=== PATIENT | female | born 1970 ===

== ENCOUNTER 2020-06-11 13:05 | Emergency (ER) | payer OTHER, SELFPAY ==
[2020-06-11 13:08] VITALS: BP 126/78; PULSE 69; O2SAT 98; BMI 33.0
--- NOTE | 2020-06-11 13:26 | PC.NURSE ---
ambulatory with steady gait to ed bed 20, pt states pain surrounds upper trunk area, report given to jony Leung
--- NOTE | 2020-06-11 13:28 | XR_ITS ---
EXAMINATION: XR LUMBOSACRAL SPINE CLINICAL INFORMATION: Low back pain radiating down left leg. COMPARISON: Radiographs thoracic spine 06/11/2020, CT abdomen and pelvis 07/14/2019 TECHNIQUE: The lumbar spine is imaged in 4 views: APx2, lateral, and lateral view coned to lumbosacral junction. Order not available on 06/11/2020 due to EMR downtime. FINDINGS: There is transitional vertebral body L5 with bilateral sacralization. There are 4 nonrib-bearing lumbar vertebrae of normal height and normal lumbar lordosis. There is no lumbar vertebral compression, spondylolisthesis, disc narrowing, or destructive process. There are mild facet degeneration L4-L5, slightly greater on the right. The SI joints and remainder of sacrum are unremarkable. XR/XR lumbar spine 2-3V IMPRESSION: 1. 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 2. Facet degeneration L4-L5, slightly greater on right. 3. No lumbar vertebral compression, spondylolisthesis, disc narrowing, or destructive process.
--- NOTE | 2020-06-11 13:40 | XR_ITS ---
EXAMINATION: XR THORACOLUMBAR SPINE CLINICAL INFORMATION: Pain COMPARISON: Chest radiographs 04/03/2019 TECHNIQUE: Thoracic spine is imaged in AP and lateral views. Order not available on 06/11/2020 due to EMR downtime. FINDINGS: There is normal thoracic vertebral segmentation with 12 rib-bearing thoracic vertebrae of normal height and normal thoracic kyphosis. There are multilevel degenerative disc changes with disc narrowing and mild endplate sclerosis and thoracic vertebral body spurring. There is no thoracic vertebral compression, spondylolisthesis, destructive process, or erosive changes. No visible paraspinal soft tissue swelling. XR/XR thoracic spine 2V IMPRESSION: Multilevel degenerative disc changes.
--- NOTE | 2020-06-11 13:53 | ED.BACK ---
HPI - Back Pain/Injury General Chief Complaint: Back Pain/Injury Stated Complaint: chest pain Time Seen by Provider: 06/11/20 13:28 Source: patient Mode of arrival: ambulatory Limitations: no limitations History of Present Illness HPI Narrative: 49 y/o female with history of Graves' disease presenting with middle and lower back pain & spasm that started when she got up from a seated position earlier today. She states this has been going on intermittently for the last 2 weeks. She was seen by her Sound Editor as well as her PCP. She had her electrolytes they were normal. Her TSH was 1.28. Her tangible personal property appraiser recommended her to decrease her methimazole dose which she has done. She reports with certain movements her back goes into spasm. No SOB, chest pain, palpitation, trauma. Related Data Previous Rx's Medication Instructions Recorded cyclobenzaprine 10 mg PO TID PRN #15 tab 06/11/20 lidocaine [Lidoderm] 1 patch TOPICAL DAILY #15 ea 06/11/20 Allergies Allergy/AdvReac Type Severity Reaction Status Date / Time azithromycin [From ZITHROMAX] Allergy Severe NAUSEA & Unverified 03/18/20 19:13 VOMITING bee pollen [BEE STINGS] Allergy Severe ANAPHYLAXIS Unverified 03/18/20 19:13 copper [COPPER] Allergy Severe BODY Unverified 03/18/20 19:13 SWELLING tuberculin, purified protein Allergy Severe ANAPHYLAXIS Unverified 03/18/20 19:13 deriva [TB TEST] zolpidem [From AMBIEN] Allergy Severe SYNCOPE Unverified 03/18/20 19:13 nickel [NICKEL] Allergy Mild RASH Unverified 03/18/20 19:13 propranolol [PROPRANOLOL] Allergy Unknown ABD ISSUES Unverified 03/18/20 19:13 ranitidine [From ZANTAC] Allergy Unknown SEVERE Unverified 03/18/20 19:13 JOINT PAIN Review of Systems Review of Systems: Constitutional: No Fever, No Chills ENT/Mouth: No sore throat, No Rhinorrhea, No Swallowing Difficulty Eyes: No Eye Pain, No Swelling, No Redness Cardiovascular: No Chest Pain, No SOB Respiratory: No Cough, No Sputum Gastrointestinal: No Nausea, No Vomiting, No Diarrhea, No abdominal Pain Genitourinary: No Dysuria, No Urinary Frequency, No Hematuria Musculoskeletal: No joint pain, + Myalgias Skin: No Skin Lesions, No rash Neuro: No Weakness, No Numbness, No Dizziness, + Headache Psych: + Anxiety/Panic, No Depression Heme/Lymph: No Bruising, No Lymphadenopathy Endocrine: No Polyuria, No Polydipsia PMFSH Past Medical History Attestation statement: The following information was validated with the patient. Medical History Diabetes 1.5, managed as type 2 High cholesterol HTN (hypertension) Social History Social History Advance Directives: No Advance Directives Information Provided: No Physical Exam Vital Signs: Vital Signs: Last Vital Signs Pulse 69 06/11/20 13:08 BP 126/78 06/11/20 13:08 Pulse Ox 98 06/11/20 13:08 Body Mass Index 33.0 Appearance: Alert. Oriented X3. No acute distress. Neck: Normal inspection. CVS: Normal heart rate and rhythm. Pulses normal. Respiratory: No respiratory distress. Breath sounds normal. Back: paraspinal muscle tenderness with spasm of lattisimus dorsi in lower thoracic area, full ROM, no spinal tenderness. Skin: Skin warm and dry. Normal skin color. Normal skin turgor. No rashes. Extremities: No lower extremity edema. Neuro: Oriented X 3. No motor deficit. No sensory deficit. Course Course Course Narrative: 49 y/o female presenting with back spasms, improvement with topical lidoderm patches. No trauma. She is reporting wanting to find a new Sound Editor, that she is not happy with hers at this time. She had recent blood work showing TSH of 1.28 but her doctor is not communicating with her appropriately and listening to her concerns. She is requesting a referral to Endo at [facility]. She is not having signs or symptoms of thyroid storm and she is compliant with her medications. Will give Flexeril for muscle spasm and have her follow up with her PCP and new Endo here. Stable for discharge. MDM - Back Pain/Injury Differential Diagnosis Differential diagnosis: Likely lumbar radiculopathy, sciatica, strain of lumbar region and thoracic back pain Critical Care Time Critical Care Time Critical Care Time: No Discharge Plan Discharge Clinical Impression: Back pain, thoracic Qualifiers: Chronicity: acute Back pain laterality: bilateral Qualified Code(s): M54.6 - Pain in thoracic spine Patient Disposition: Home, Self-Care Instructions: Muscle Spasm (ED), Back Pain (ED) Additional Instructions: X-rays of your back were taken today - if there are any concerning findings we will call you. Use ice and/or heat to the area several times per day as needed for pain. Take prescribed muscle relaxer as needed for muscle spasm. Take Motrin and/or Tylenol as needed for pain. Stay hydrated, drink plenty of water. Follow up with Endocrinology for further management of Graves disease and medication recommendations. If you have any worsening pain or new or concerning symptoms come back to the ER for further evaluation. Prescriptions: New cyclobenzaprine 10 mg tablet 10 mg PO TID PRN (Reason: muscle spasm) Qty: 15 RF: 0 lidocaine [Lidoderm] 5 % adhesive patch,medicated 1 patch topical DAILY Qty: 15 RF: 0 Referrals: Nesha Zambrano MD [Physician] - 2 days (Graves disease) Stand Alone Forms: Work/School Release Discharge Date/Time: 06/11/20 14:37
== END 2020-06-11 14:37 | disposition home or self-care (01) ==
PROVIDERS: Emergency Provider Emergency Medicine; PCP Internal Medicine
DX: M54.6 Pain in thoracic spine (principal); M54.5 Low back pain; Z79.899 Other long term (current) drug therapy
CPT/HCPCS: 72070; 72100; 99283; 99284

== ENCOUNTER → 2020-07-05 07:49 | Outpatient (BNVA) | payer OTHER, SELFPAY | PROVIDERS: PCP Internal Medicine; Visit Provider Internal Medicine | DX: Z76.89 Persons encountering health services in other specified circumstances (principal) ==

== ENCOUNTER 2020-07-05 09:48 | Outpatient (REF) | payer OTHER, SELFPAY ==
[2020-07-05 11:15] LABS: Free T4 (Free Thyroxine) 0.91 ng/dL (0.71-1.85); Thyroid Stimulating Hormone 0.33 uIU/mL (0.32-4.0)
[2020-07-06 12:12] LABS: DHEA Sulfate 79 mcg/dL (19-231); Thyroglobulin Antibodies <1 IU/mL (< or = 1); Thyroid Peroxidase Antibodies <1 IU/mL (<9)
[2020-07-06 16:52] LABS: Triiodothyronine T3 Total 113 ng/dL (76-181)
[2020-07-08 14:33] LABS: Thyroid Stimulating Immunoglob 270 % baseline (<140)
[2020-07-09 16:02] LABS: Testosterone, Free 4.1 pg/mL (0.1-6.4); Testosterone, Total 29 ng/dL (2-45)
[2020-07-10 23:13] LABS: Thyrotropin Receptor Antibody 22.85 IU/L (<=2.00)
== END 2020-07-05 09:49 | disposition home or self-care (01) ==
LOC: HO.10HDL 09:48
PROVIDERS: Visit Provider Internal Medicine
DX: L65.9 Nonscarring hair loss, unspecified (principal); E05.90 Thyrotoxicosis, unspecified without thyrotoxic crisis or storm; E55.9 Vitamin D deficiency, unspecified
CPT/HCPCS: 36415; 82306; 82627; 83520; 84402; 84403; 84439; 84443; 84445; 84480; 86376; 86800

== ENCOUNTER 2020-11-08 17:03 | Emergency (ER) | payer OTHER, SELFPAY ==
--- NOTE | ~2020-11-08 | CT_ITS ---
EXAMINATION: CT BRAIN AND CT CERVICAL SPINE WITHOUT CONTRAST. CLINICAL INFORMATION: Headache and neck pain. COMPARISON: None TECHNIQUE: 5 mm thin axial and reformatted 2 minutes in sagittal coronal images of brain were obtained. Subsequently axial 3 mm thin axial and reformatted 2 minutes in sagittal coronal images of cervical spine were obtained. DLP [id number] FINDINGS: BRAIN: There is no acute intra-axial, extra-axial bleed, masses, collection or midline shift. There is no acute infarct in evolution. The lateral ventricles are symmetrical in size and configuration without enlargement. The mclaughlin to white matter differentiation maintained normal. Bone windows reveal no calvarial abnormality. Bilateral paranasal sinuses and mastoid air cells are well-aerated. CERVICAL SPINE: There is mild straightening of cervical lordosis. The vertebral heights, alignment and disc heights are normal. No visible acute fracture, dislocation or or lytic lesions seen. The craniovertebral junction and the C1-C2 alignment is normal. There is moderate right C3-C4, C4-C5 and C5-C6 facet joint arthropathy. The airway is widely patent. The lung apices are clear. Thyroid lobes are symmetrical and normal. Bilateral submandibular and parotid glands are symmetric and normal. CT/CT cervical spine wo con IMPRESSION: No acute intracranial process seen. Mild straightening of cervical lordosis likely spasm. No acute fracture or dislocation. Moderate right C3-C4, C4-C5 and C5-C6 facet joint arthropathy and hypertrophy.
--- NOTE | ~2020-11-08 | CT_ITS ---
EXAMINATION: CT BRAIN AND CT CERVICAL SPINE WITHOUT CONTRAST. CLINICAL INFORMATION: Headache and neck pain. COMPARISON: None TECHNIQUE: 5 mm thin axial and reformatted 2 minutes in sagittal coronal images of brain were obtained. Subsequently axial 3 mm thin axial and reformatted 2 minutes in sagittal coronal images of cervical spine were obtained. DLP [id number] FINDINGS: BRAIN: There is no acute intra-axial, extra-axial bleed, masses, collection or midline shift. There is no acute infarct in evolution. The lateral ventricles are symmetrical in size and configuration without enlargement. The mclaughlin to white matter differentiation maintained normal. Bone windows reveal no calvarial abnormality. Bilateral paranasal sinuses and mastoid air cells are well-aerated. CERVICAL SPINE: There is mild straightening of cervical lordosis. The vertebral heights, alignment and disc heights are normal. No visible acute fracture, dislocation or or lytic lesions seen. The craniovertebral junction and the C1-C2 alignment is normal. There is moderate right C3-C4, C4-C5 and C5-C6 facet joint arthropathy. The airway is widely patent. The lung apices are clear. Thyroid lobes are symmetrical and normal. Bilateral submandibular and parotid glands are symmetric and normal. CT/CT head/brain wo con IMPRESSION: No acute intracranial process seen. Mild straightening of cervical lordosis likely spasm. No acute fracture or dislocation. Moderate right C3-C4, C4-C5 and C5-C6 facet joint arthropathy and hypertrophy.
[2020-11-08 17:17] VITALS: BP 154/80; PULSE 90; RESP 18; TEMP 36.3; O2SAT 100; BMI 43.9
[2020-11-08] MEDS: Cyclobenzaprine HCl 5 MG TABLET PO (18:45)
[2020-11-08] MEDS: Ketorolac Tromethamine 30 MG/ML VIAL IM (18:45)
[2020-11-08] MEDS: Lidocaine 4 % Patch ADH..PATCH 1 PATCH TRANSDERMA (18:47)
[2020-11-08 20:00] VITALS: BP 152/77; PULSE 66; RESP 16; TEMP 36.2; O2SAT 97
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
--- NOTE | 2020-11-08 21:37 | PC.NURSE ---
CT REPORT BACK. PATIENT UPDATED AND PROVIDER NOTIFIED.
== END 2020-11-08 21:50 | disposition home or self-care (01) ==
PROVIDERS: Emergency Provider Internal Medicine; PCP Internal Medicine
DX: Z04.1 Encounter for examination and observation following transport accident (principal); R51.9 Headache, unspecified; M62.838 Other muscle spasm; G89.11 Acute pain due to trauma; M54.2 Cervicalgia; M47.812 Spondylosis without myelopathy or radiculopathy, cervical region; E78.5 Hyperlipidemia, unspecified; I10 Essential (primary) hypertension
CPT/HCPCS: 70450; 72125; 96372; 99284; J1885

== ENCOUNTER 2020-12-17 15:17 | Emergency (ER) | payer OTHER, SELFPAY ==
--- NOTE | ~2020-12-17 | US_ITS ---
EXAMINATION: US VENOUS ULTRASOUND WITH DOPPLER LOWER EXTREMITY, RIGHT CLINICAL INFORMATION: Pain. COMPARISON: Venous ultrasound exam 02/15/2019 right lower extremity TECHNIQUE: Ultrasound of the deep veins is performed from the hip to the calf with compression sonography and color and pulse Doppler assessment. Spectral analysis with color-flow imaging is performed. FINDINGS: There is normal vascular flow and compressibility of the veins from the groin to the popliteal vein. Within the calf there is thrombus causing occlusion of the posterior tibial veins. The peroneal veins are not seen. US/US venous duplex LE RT IMPRESSION: 1. Deep vein thrombosis in the calf involving the posterior tibial vein 2. No thrombus present from the groin through the popliteal vein. This critical result was discussed with Dr. Young on 12/17/2020, 8:00 PM and it was ascertained that the content and urgency of the report was understood at the time of direct communication.
[2020-12-17 16:31] VITALS: BP 150/80; PULSE 94; RESP 18; TEMP 36.9; O2SAT 99; BMI 43.4
--- NOTE | 2020-12-17 19:30 | ED_ITS ---
HPI - Extremity Problem General Chief complaint: General Medical Stated complaint: ?dvt Time Seen by Provider: 12/17/20 19:05 Source: patient Mode of arrival: ambulatory Limitations: no limitations History of Present Illness HPI Narrative: Patient traveled to [place] but a week ago since then complaining of pain the right calf area specially when she palpate with slight swelling no shortness No history of DVT in the past patient also complaining of pain in the left flank area no urinary complaints patient does have history of kidney stones no abdominal pain no nausea no vomiting Related Data Home Medications Medication Instructions Recorded Confirmed diazepam 2 mg tablet 2 mg PO Q8H PRN 07/05/20 07/05/20 dicyclomine 10 mg capsule 10 mg PO QID 07/05/20 07/05/20 Previous Rx's Medication Instructions Recorded cyclobenzaprine 10 mg PO TID PRN #15 tab 06/11/20 lidocaine [Lidoderm] 1 patch TOPICAL DAILY #15 ea 06/11/20 methimazole 5 mg tablet 7.5 mg PO DAILY 30 Days #45 tab 07/07/20 acetaminophen [Tylenol Extra 500 mg PO Q6H PRN #20 tab 11/08/20 Strength] cyclobenzaprine 5 mg PO Q8H PRN 5 Days #14 tab 11/08/20 lidocaine [Lidoderm] 1 patch TOPICAL DAILY PRN #30 ea 11/08/20 MDD remove after 12 hours naproxen 500 mg PO BID PRN 10 Days #20 tab 11/08/20 apixaban [Eliquis DVT-PE Treat 30D 5 mg PO PER PKG DIR #74 ea 12/17/20 Start] Allergies Allergy/AdvReac Type Severity Reaction Status Date / Time azithromycin [From ZITHROMAX] Allergy Severe NAUSEA & Verified 12/17/20 20:44 VOMITING bee pollen [BEE STINGS] Allergy Severe ANAPHYLAXIS Verified 12/17/20 20:44 copper [COPPER] Allergy Severe BODY Verified 12/17/20 20:44 SWELLING tuberculin, purified protein Allergy Severe ANAPHYLAXIS Verified 12/17/20 20:44 deriva [TB TEST] zolpidem [From AMBIEN] Allergy Severe SYNCOPE Verified 12/17/20 20:44 nickel [NICKEL] Allergy Mild RASH Verified 12/17/20 20:44 propranolol [PROPRANOLOL] Allergy Unknown ABD ISSUES Verified 12/17/20 20:44 ranitidine [From ZANTAC] Allergy Unknown SEVERE Verified 12/17/20 20:44 JOINT PAIN Review of Systems Review of Systems: Yes all other systems are reviewed and are negative [facility] Past Medical History Medical History Alopecia Graves disease High cholesterol HTN (hypertension) Hyperthyroidism Vitamin D deficiency Surgical History History of tubal ligation Family History Family History Maternal Grandmother Hypothyroidism Social History Social History Alcohol intake: current Alcohol intake frequency: a few times a month Patient Tobacco Use Status: Never used Tobacco Use of substances other than those prescribed or required for medical reasons: No Advance Directives: No Advance Directives Information Provided: Yes Patient : No Physical Exam Vital Signs: Vital Signs: Last Vital Signs Temp 97.6 F 12/17/20 19:55 Pulse 98 12/17/20 20:46 Resp 18 12/17/20 20:46 BP 135/84 12/17/20 20:46 Pulse Ox 98 12/17/20 20:46 Body Mass Index 43.4 Const: General: comfortable and no acute distress Resp: Auscultation: clear to auscultation bilaterally Cardio: Rate: regular rate Rhythm: regular rhythm Heart sounds: S1 normal heart sound present and S2 normal heart sound present Extrem: Ankle/foot/toe images: 1. Mild deep tenderness in calf area no significant swelling Cherelle test negative neurovascular intact MDM - Extremity (Nontraumatic) [facility] Narrative Medical decision making narrative: Patient right calf tenderness after a 5 hours trip ultrasound positive for tibial vein thrombosis no shortness of breath never had DVT in the past no other risk factor for DVT patient with stable kidney function will start on Eliquis 10 mg twice daily for 7 days then 5 mg twice daily advised to follow with PCP Lab Data Labs: Lab Results 12/17/20 Range/Units 19:55 Urine Color YELLOW Urine Appearance HAZY Urine pH 6.5 (5.0-8.0) Ur Specific [place] 1.020 (1.005-1.025) Urine Protein NEG (NEG-TRACE) MG/DL Urine Glucose (UA) NEG (NEG) MG/DL Urine Ketones NEG (NEG) MG/DL Urine Blood TRACE (NEG) Urine Nitrite NEG (NEG) Ur Leukocyte Esterase NEG (NEG) Urine RBC 1-4 (0) /HPF Urine WBC 0 (0-4) /HPF Ur Squamous Epith Cells 1+ /LPF Ur Renal Epithelial Cell TRACE /LPF Urine Bacteria NONE /LPF Imaging Data Venous US: Radiologist's impression: Patient: Selam AggarwalMR#: [id number]: 1970Acct:[id number]/Sex: 50 / FADM Date: 12/17/20Loc: HO.EDAttending Dr: Ordering Physician: Jasvir Young MD Date of Service: 12/17/20 Procedure(s): US venous duplex LE RT Accession Number(s): [id number] cc: Jasvir Young MD~ EXAMINATION: US VENOUS ULTRASOUND WITH DOPPLER LOWER EXTREMITY, RIGHT CLINICAL INFORMATION: Pain. COMPARISON: Venous ultrasound exam 02/15/2019 right lower extremity TECHNIQUE: Ultrasound of the deep veins is performed from the hip to the calf with compression sonography and color and pulse Doppler assessment. Spectral analysis with color-flow imaging is performed. FINDINGS: There is normal vascular flow and compressibility of the veins from the groin to the popliteal vein. Within the calf there is thrombus causing occlusion of the posterior tibial veins. The peroneal veins are not seen. US/US venous duplex LE RT IMPRESSION: 1. Deep vein thrombosis in the calf involving the posterior tibial vein 2. No thrombus present from the groin through the popliteal vein. This critical result was discussed with Dr. Young on 12/17/2020, 8:00 PM and it was ascertained that the content and urgency of the report was understood at the time of direct communication. Discharge Plan Discharge Clinical Impression: DVT of leg (deep venous thrombosis) Patient Disposition: Home, Self-Care Instructions: Deep Vein Thrombosis (ED) Additional Instructions: Rest at home Take medication as prescribed. Follow with PCP Prescriptions: New Eliquis DVT-PE Treat 30D Start 5 mg (74 tabs) tablets,dose pack 5 mg PO PER PKG DIR Qty: 74 RF: 0 No Action methimazole 5 mg tablet 7.5 mg PO DAILY 30 Days Qty: 45 RF: 2 cyclobenzaprine 10 mg tablet 10 mg PO TID PRN (Reason: muscle spasm) Qty: 15 RF: 0 lidocaine [Lidoderm] 5 % adhesive patch,medicated 1 patch topical DAILY Qty: 15 RF: 0 acetaminophen [Tylenol Extra Strength] 500 mg tablet 500 mg PO Q6H PRN (Reason: pain or fever) Qty: 20 RF: 0 lidocaine [Lidoderm] 5 % adhesive patch,medicated 1 patch topical DAILY MDD remove after 12 hours PRN (Reason: pain) Qty: 30 RF: 0 naproxen 500 mg tablet 500 mg PO BID PRN (Reason: pain) 10 Days Qty: 20 RF: 0 cyclobenzaprine 5 mg tablet 5 mg PO Q8H PRN (Reason: pain (scale score 7-10)) 5 Days Qty: 14 RF: 0 dicyclomine 10 mg capsule 10 mg PO QID RF: 0 diazepam 2 mg tablet 2 mg PO Q8H PRN (Reason: muscle spasm) RF: 0 Interventions: ED Discharge Assessment Last Done: 12/17/20 21:20 Discharge Date/Time: 12/17/20 21:21
[2020-12-17 19:55] VITALS: BP 136/78; PULSE 98; RESP 18; TEMP 36.4; O2SAT 98
[2020-12-17 20:17] LABS: Glucose Urine UA NEG (NEG); Leukocyte Esterase Urine NEG (NEG); Nitrite Urine NEG (NEG); PH 6.5 (5.0-8.0); Urine Blood TRACE (NEG); Urine Ketones NEG (NEG); Urine Protein NEG (NEG-TRACE)
[2020-12-17 20:18] LABS: Appearance Urine HAZY; Color Urine YELLOW
[2020-12-17 20:24] LABS: Renal Epithelial Cells Urine TRACE /LPF; Squamous Epithelial Cell Urine 1+ /LPF; WBC Urine 0 /HPF (0-4)
[2020-12-17 20:46] VITALS: BP 135/84; PULSE 98; RESP 18; O2SAT 98
[2020-12-17] MEDS: Apixaban 5 MG TABLET 10 MG PO (20:48)
== END 2020-12-17 21:21 | disposition home or self-care (01) ==
PROVIDERS: Emergency Provider Internal Medicine; PCP Internal Medicine
DX: I82.442 Acute embolism and thrombosis of left tibial vein (principal); I10 Essential (primary) hypertension; Z79.899 Other long term (current) drug therapy
CPT/HCPCS: 81001; 93971; 99284

== ENCOUNTER 2021-01-09 09:52 | Emergency (ER) | payer OTHER, SELFPAY ==
--- NOTE | ~2021-01-09 | US_ITS ---
EXAMINATION: US VENOUS ULTRASOUND WITH DOPPLER LOWER EXTREMITY, RIGHT CLINICAL INFORMATION: History of DVT below the knee, worsening pain in the leg COMPARISON: Right lower extremity duplex ultrasound ON 12/17/2020 TECHNIQUE: Ultrasound of the deep veins is performed from the hip to the calf with compression sonography and color and pulse Doppler assessment. Spectral analysis with color-flow imaging is performed. FINDINGS: There is normal venous compression and respiratory variation and augmented flow. The visualized common femoral vein, superficial femoral vein, profunda femoral vein, popliteal vein, and the trifurcation region shows no evidence of deep venous thrombosis. There is no significant popliteal fossa cyst. If the patient's symptoms persist, followup ultrasound in 5 days 7 days might be of value to exclude proximal propagation from a non-visualized calf vein. US/US venous duplex LE RT IMPRESSION: No DVT demonstrated in the right lower extremity. Previously identified thrombus in the right posterior tibial vein has resolved.
[2021-01-09 09:54] VITALS: BP 156/82; PULSE 76; RESP 18; TEMP 36.7; O2SAT 95; BMI 43.0
--- NOTE | 2021-01-09 11:28 | ED_ITS ---
HPI - General Adult General Chief complaint: Extremity Problem Stated complaint: DVT R LEG PAIN Time Seen by Provider: 01/09/21 11:24 Source: patient Limitations: no limitations History of Present Illness HPI narrative: Patient presents with worsening right leg pain. Patient was recently diagnosed with a DVT and started on Eliquis back in December 17 2020. Patient denies any recent trauma or injuries feels the pain is still in the calf and going up into her quadriceps anterior and posteriorly. Pain increases with range of motion or palpation. No recent trauma. Symptoms are [id number]. Patient denies shortness of breath chest pain fever chills. Related Data Home Medications Medication Instructions Recorded Confirmed diazepam 2 mg tablet 2 mg PO Q8H PRN 07/05/20 07/05/20 dicyclomine 10 mg capsule 10 mg PO QID 07/05/20 07/05/20 Previous Rx's Medication Instructions Recorded cyclobenzaprine 10 mg PO TID PRN #15 tab 06/11/20 lidocaine [Lidoderm] 1 patch TOPICAL DAILY #15 ea 06/11/20 methimazole 5 mg tablet 7.5 mg PO DAILY 30 Days #45 tab 07/07/20 acetaminophen [Tylenol Extra 500 mg PO Q6H PRN #20 tab 11/08/20 Strength] cyclobenzaprine 5 mg PO Q8H PRN 5 Days #14 tab 11/08/20 lidocaine [Lidoderm] 1 patch TOPICAL DAILY PRN #30 ea 11/08/20 MDD remove after 12 hours naproxen 500 mg PO BID PRN 10 Days #20 tab 11/08/20 apixaban [Eliquis DVT-PE Treat 30D 5 mg PO PER PKG DIR #74 ea 12/17/20 Start] methocarbamol 750 mg PO TID PRN #20 tab 01/09/21 Allergies Allergy/AdvReac Type Severity Reaction Status Date / Time azithromycin [From ZITHROMAX] Allergy Severe NAUSEA & Verified 12/17/20 20:44 VOMITING bee pollen [BEE STINGS] Allergy Severe ANAPHYLAXIS Verified 12/17/20 20:44 copper [COPPER] Allergy Severe BODY Verified 12/17/20 20:44 SWELLING tuberculin, purified protein Allergy Severe ANAPHYLAXIS Verified 12/17/20 20:44 deriva [TB TEST] zolpidem [From AMBIEN] Allergy Severe SYNCOPE Verified 12/17/20 20:44 nickel [NICKEL] Allergy Mild RASH Verified 12/17/20 20:44 propranolol [PROPRANOLOL] Allergy Unknown ABD ISSUES Verified 12/17/20 20:44 ranitidine [From ZANTAC] Allergy Unknown SEVERE Verified 12/17/20 20:44 JOINT PAIN Review of Systems Constitutional: Constitutional: Denies chills, Denies fever(s) and Denies headache(s) ENT: Denies headache(s) Cardiovascular: Cardiovascular: Denies chest pain and Denies dyspnea Comments: No pain with deep inspiration Respiratory: Respiratory: Denies dyspnea Gastrointestinal: Gastrointestinal: Denies nausea and Denies vomiting Musculoskeletal: Musculoskeletal: Denies numbness Comments: Right leg pain Neurologic: Denies headache(s) and Denies numbness Hematologic/Lymphatic: Hematologic/Lymphatic: Reports no additional hematologic/lymphatic complaints Allergic/Immunologic: Allergic/Immunologic: Reports as per [facility] Past Medical History Attestation statement: The following information was validated with the patient. Source: unable to obtain Medical History Alopecia Graves disease High cholesterol HTN (hypertension) Hyperthyroidism Vitamin D deficiency Surgical History History of tubal ligation Family History Family History Maternal Grandmother Hypothyroidism Social History Social History Alcohol intake: current Alcohol intake frequency: a few times a month Patient Tobacco Use Status: Never used Tobacco Advance Directives: Yes Advance Directives Information Provided: Yes Advance Directives on File: No Physical Exam Vital Signs: Vital Signs: Last Vital Signs Temp 98.0 F 01/09/21 09:54 Pulse 76 01/09/21 09:54 Resp 18 01/09/21 09:54 BP 156/82 H 01/09/21 09:54 Pulse Ox 95 01/09/21 09:54 Body Mass Index 43.0 vital signs have been reviewed as normal and appeared to be correct. Blood pressure normal. Heart rate normal. Respiration rate normal. Temperature normal. Oxygen saturation normal. Appearance: Alert. Oriented X3. No acute distress. Head: Normal external exam. Normocephalic. Atraumatic. Eyes: PERRLA. EOMI. ENT: Pharynx normal. Uvula midline. Moist mucous membranes. Neck: Soft full range of motion, no JVD CVS: Heart regular rate and rhythm no murmurs and rubs Respiratory: Breath sounds are clear to auscultation bilaterally. No accessory muscle use noted. Back: No CVA tenderness. Full range of motion noted. Skin: Skin warm and dry. Normal skin color. Normal skin turgor. No rashes/lesions/lacerations noted. Extremities: Right lowest extremity positive calf tenderness extending up to the quadriceps no masses palpated Neuro: Oriented X 3. No motor deficit. No sensory deficit. Reflexes normal. Course Course Course Narrative: Worsening DVT Subtherapeutic on Eliquis Muscle skeletal strain Pulmonary embolism less likely patient is on Eliquis no shortness of breath chest pain Case discussed with Dr. Sawant will repeat ultrasound of the right lower extremity at this time Ultrasound reviewed with patient prior DVT has resolved. Symptoms likely secondary to muscle skeletal pain Medical Decision Making Imaging Data Venous US: Radiologist's impression: [address] [id number] ReportSigned Patient: Selam AggarwalMR#: [id number]: 1970Acct:[id number]/Sex: 50 / FADM Date: 01/09/21Loc: [email or web address].EDAttending Dr: Ordering Physician: Ravi Gusman Date of Service: 01/09/21 Procedure(s): US venous duplex LE RT Accession Number(s): [id number] cc: Ravi Gusman ~ EXAMINATION: US VENOUS ULTRASOUND WITH DOPPLER LOWER EXTREMITY, RIGHT CLINICAL INFORMATION: History of DVT below the knee, worsening pain in the leg COMPARISON: Right lower extremity duplex ultrasound ON 12/17/2020 TECHNIQUE: Ultrasound of the deep veins is performed from the hip to the calf with compression sonography and color and pulse Doppler assessment. Spectral analysis with color-flow imaging is performed. FINDINGS: There is normal venous compression and respiratory variation and augmented flow. The visualized common femoral vein, superficial femoral vein, profunda femoral vein, popliteal vein, and the trifurcation region shows no evidence of deep venous thrombosis. There is no significant popliteal fossa cyst. If the patient's symptoms persist, followup ultrasound in 5 days 7 days might be of value to exclude proximal propagation from a non-visualized calf vein. US/US venous duplex LE RT IMPRESSION: No DVT demonstrated in the right lower extremity. Previously identified thrombus in the right posterior tibial vein has resolved. Dictated By:SERGIO CALERO MDSigned By:<Electronically signed by SERGIO CALERO MD in OV>01/09/21 1231 DD/ 1133TD/TT: Screen Vent Binder: PN Discharge Plan Discharge Clinical Impression: Leg pain, Muscle strain Patient Disposition: Home, Self-Care Instructions: Muscle Strain (ED) Additional Instructions: Your ultrasound showed resolution of the deep vein thrombosis in the right leg continue to take the Eliquis as directed follow-up with your doctors as scheduled Pain likely secondary to muscle skeletal pain will start muscle relaxer at this time Prescriptions: New methocarbamol 750 mg tablet 750 mg PO TID PRN (Reason: muscle spasm) Qty: 20 RF: 0 No Action methimazole 5 mg tablet 7.5 mg PO DAILY 30 Days Qty: 45 RF: 2 cyclobenzaprine 10 mg tablet 10 mg PO TID PRN (Reason: muscle spasm) Qty: 15 RF: 0 lidocaine [Lidoderm] 5 % adhesive patch,medicated 1 patch topical DAILY Qty: 15 RF: 0 Eliquis DVT-PE Treat 30D Start 5 mg (74 tabs) tablets,dose pack 5 mg PO PER PKG DIR Qty: 74 RF: 0 acetaminophen [Tylenol Extra Strength] 500 mg tablet 500 mg PO Q6H PRN (Reason: pain or fever) Qty: 20 RF: 0 lidocaine [Lidoderm] 5 % adhesive patch,medicated 1 patch topical DAILY MDD remove after 12 hours PRN (Reason: pain) Qty: 30 RF: 0 naproxen 500 mg tablet 500 mg PO BID PRN (Reason: pain) 10 Days Qty: 20 RF: 0 cyclobenzaprine 5 mg tablet 5 mg PO Q8H PRN (Reason: pain (scale score 7-10)) 5 Days Qty: 14 RF: 0 dicyclomine 10 mg capsule 10 mg PO QID RF: 0 diazepam 2 mg tablet 2 mg PO Q8H PRN (Reason: muscle spasm) RF: 0
== END 2021-01-09 12:48 | disposition home or self-care (01) ==
PROVIDERS: Emergency Provider Emergency Medicine; PCP Internal Medicine
DX: T14.8XXA Other injury of unspecified body region, initial encounter (principal); I10 Essential (primary) hypertension; Z86.718 Personal history of other venous thrombosis and embolism; Z79.01 Long term (current) use of anticoagulants; Z79.899 Other long term (current) drug therapy; X58.XXXA Exposure to other specified factors, initial encounter; Y93.9 Activity, unspecified; Y92.9 Unspecified place or not applicable; Y99.9 Unspecified external cause status
CPT/HCPCS: 93971; 99283; 99284

== ENCOUNTER 2021-03-06 17:21 | Emergency (ER) | payer OTHER, SELFPAY ==
--- NOTE | ~2021-03-06 | XR_ITS ---
Examination: XR hand wrist RT Indication: pt c atraumatic right wrist/hand pain Comparison: 04/03/2019 Technique: 4 plain film views of the right hand and wrist Findings: Bones are in normal anatomic alignment. There is no acute fracture or dislocation seen. No bony degenerative or destructive changes. No periosteal reaction or erosive changes. No radiopaque foreign body or soft tissue gas. Incidental mild ulnar negative variance of the wrist. XR/XR hand wrist RT Impression: No acute bony abnormality.
[2021-03-06 17:39] VITALS: BP 150/79; PULSE 86; RESP 16; TEMP 36.5; O2SAT 99; BMI 44.0
[2021-03-06] MEDS: Acetaminophen 325 MG TABLET 975 MG PO (18:05)
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
== END 2021-03-06 19:00 | disposition home or self-care (01) ==
PROVIDERS: Emergency Provider Internal Medicine; PCP Internal Medicine
DX: S63.501A Unspecified sprain of right wrist, initial encounter (principal); M25.531 Pain in right wrist; X58.XXXA Exposure to other specified factors, initial encounter; Y93.9 Activity, unspecified; Y92.9 Unspecified place or not applicable; Y99.9 Unspecified external cause status; Z79.899 Other long term (current) drug therapy
CPT/HCPCS: 73110; 73130; 99284

== ENCOUNTER 2021-10-10 01:55 | Emergency (ER) | payer OTHER, SELFPAY ==
[2021-10-10 02:12] VITALS: BP 182/50; PULSE 70; RESP 18; TEMP 36; O2SAT 98
[2021-10-10] MEDS: Tetracaine HCl/PF 0.5% Oph Sol 4 ML DROPS 1 DROP EYE-BOTH (03:14)
[2021-10-10] MEDS: Fluorescein Sodium STRIP 1 STRIP EYE-BOTH (03:15)
--- NOTE | 2021-10-10 03:41 | ED.EYEPROB ---
HPI - Eye Problem General Chief complaint: Eye Problems Stated complaint: FB in eye Time Seen by Provider: 10/10/21 02:55 Source: patient and family (Son) Mode of arrival: ambulatory Limitations: no limitations History of Present Illness HPI Narrative: 51-year-old female came in for evaluation of her right eye pain. Patient in the process of moving felt right eye pain with discharge, patient was seen in urgent care was prescribed gentamicin eyedrops with partial improvement but patient still feel foreign body in the eye and pain in the right eye with discharge and the eyelid stick in the morning. Related Data Home Medications Medication Instructions Recorded Confirmed diazepam 2 mg tablet 2 mg PO Q8H PRN 07/05/20 07/05/20 dicyclomine 10 mg capsule 10 mg PO QID 07/05/20 07/05/20 Previous Rx's Medication Instructions Recorded cyclobenzaprine 10 mg tablet 10 mg PO TID PRN #15 tab 06/11/20 lidocaine 5 % topical patch 1 patch TOPICAL DAILY #15 ea 06/11/20 (Lidoderm) methimazole 5 mg tablet 7.5 mg PO DAILY 30 Days #45 tab 07/07/20 acetaminophen 500 mg tablet 500 mg PO Q6H PRN #20 tab 11/08/20 (Tylenol Extra Strength) cyclobenzaprine 5 mg tablet 5 mg PO Q8H PRN 5 Days #14 tab 11/08/20 lidocaine 5 % topical patch 1 patch TOPICAL DAILY PRN #30 ea 11/08/20 (Lidoderm) MDD remove after 12 hours naproxen 500 mg tablet 500 mg PO BID PRN 10 Days #20 tab 11/08/20 apixaban 5 mg (74 tabs) tablets in 5 mg PO PER PKG DIR #74 ea 12/17/20 a dose pack ([employer] DVT-PE Treat 30D Start) methocarbamol 750 mg tablet 750 mg PO TID PRN #20 tab 01/09/21 acetaminophen 500 mg tablet 1,000 mg PO QID PRN #14 tab 03/06/21 (Tylenol Extra Strength) lidocaine HCl 4 % topical cream 1 appl TOPICAL BID PRN #120 g 03/06/21 (Aspercreme (lidocaine HCl)) oxycodone 5 mg tablet 5 mg PO Q6H PRN #14 tab 03/06/21 Allergies Allergy/AdvReac Type Severity Reaction Status Date / Time azithromycin [From ZITHROMAX] Allergy Severe NAUSEA & Verified 12/17/20 20:44 VOMITING bee pollen [BEE STINGS] Allergy Severe ANAPHYLAXIS Verified 12/17/20 20:44 copper [COPPER] Allergy Severe BODY Verified 12/17/20 20:44 SWELLING tuberculin, purified protein Allergy Severe ANAPHYLAXIS Verified 12/17/20 20:44 deriva [TB TEST] zolpidem [From AMBIEN] Allergy Severe SYNCOPE Verified 12/17/20 20:44 nickel [NICKEL] Allergy Mild RASH Verified 12/17/20 20:44 propranolol [PROPRANOLOL] Allergy Unknown ABD ISSUES Verified 12/17/20 20:44 ranitidine [From ZANTAC] Allergy Unknown SEVERE Verified 12/17/20 20:44 JOINT PAIN Review of Systems Review of Systems: All other systems are reviewed and are negative Constitutional: Reports as per HPI and Reports no additional constitutional complaints Eyes: Reports as per HPI and Reports no additional eye complaints Reports system reviewed and no additional complaints, except as documented Cardiovascular: Reports as per HPI and Reports no additional cardiovascular complaints Respiratory: Reports as per HPI and Reports no additional respiratory complaints Gastrointestinal: Reports as per HPI and Reports no additional gastrointestinal complaints Genitourinary: Reports no additional female genitourinary complaints Musculoskeletal: Reports no additional musculoskeletal complaints Skin/Breast: Reports system reviewed and no additional complaints, except as docu Psychiatric: Reports no additional psychiatric complaints Endocrine: Reports no additional endocrine complaints Hematologic/Lymphatic: Reports no additional hematologic/lymphatic complaints Allergic/Immunologic: Reports no additional allergic/immunologic complaints Reports system reviewed and no additional complaints, except as documented and Reports Abnormal speech present [facility] Past Medical History Medical History Alopecia Graves disease High cholesterol HTN (hypertension) Hyperthyroidism Vitamin D deficiency Surgical History History of tubal ligation Family History Family History Maternal Grandmother Hypothyroidism Social History Social History Alcohol intake: never Patient Tobacco Use Status: Never used Tobacco Use of substances other than those prescribed or required for medical reasons: No Advance Directives: No Advance Directives Information Provided: No Patient : No Physical Exam Vital Signs: Vital Signs: Last Vital Signs Temp 96.8 F 10/10/21 02:12 Pulse 70 10/10/21 02:12 Resp 18 10/10/21 02:12 BP 182/50 H 10/10/21 02:12 Pulse Ox 98 10/10/21 02:12 BMI result Body Mass Index 4.1 Vital signs have been reviewed as appeared to be correct. Blood pressure normal. Heart rate normal. Respiration rate normal. Temperature normal. Oxygen saturation normal. Appearance: Alert. Oriented X3. No acute distress. Head: Normal external exam. Normocephalic. Atraumatic. No Null signs noted. No raccoon eyes noted Eyes: PERRLA. EOMI. Conjunctiva and sclera normal. Eyelids normal. Visual acuity is 20/70 on the right eye, 20/40 in the left eye, no fluorescein uptake in the cornea, no foreign body is appreciated under neither of the eyelids, IOP is 17 in the right and 15 in the left. Small stye in the right temporal upper eyelid. ENT: TM's Normal. Pharynx normal. Uvula midline. Moist mucous membranes. No trismus noted. No drooling noted. No muffled voice noted. Neck: Normal inspection. Neck supple. FROM. No adenopathy. Thyroid Normal. No meningeal signs. No neck mass noted. CVS: Normal heart rate and rhythm. Heart sound normal. No murmurs noted. Pulses normal throughout. Respiratory: No respiratory distress. Painless inspiration. Breath sounds normal. No wheezes/rales/rhonchi noted. Chest nontender. No accessory muscle usage noted or decreased air movement noted. Abdomen: Soft and nontender. Bowel sounds normal in all 4 quadrants. No distention noted. No organomegaly noted. No visible injury noted. Back: No CVA tenderness. Full range of motion noted. Skin: Skin warm and dry. Normal skin color. Normal skin turgor. No rashes/lesions/lacerations noted. Extremities: No lower extremity edema. Extremities exhibit normal range of motion. Extremities nontender. Neuro: Oriented X 3. Cranial nerve exam: II-XII are grossly intact No motor deficit. No sensory deficit. Reflexes normal. Course Course Course Narrative: Assessment and plan. 51-year-old female with right eye pain, normal IUP, no corneal abrasion or ulceration, no foreign body is appreciated. Patient was instructed to continue with the gentamicin and follow-up with screen printing cloth spreader, continue with warm compression. Discharge Plan Discharge Clinical Impression: [place]on Patient Disposition: Home, Self-Care Instructions: [place]on (ED) Prescriptions: No Action methimazole 5 mg tablet 7.5 mg PO DAILY 30 Days Qty: 45 2RF cyclobenzaprine 10 mg tablet 10 mg PO TID PRN (Reason: muscle spasm) Qty: 15 0RF lidocaine [Lidoderm] 5 % adhesive patch,medicated 1 patch topical DAILY Qty: 15 0RF Rx Instructions: leave on most painful area for up to 12 hrs Eliquis DVT-PE Treat 30D Start 5 mg (74 tabs) tablets,dose pack 5 mg PO PER PKG DIR Qty: 74 0RF lidocaine HCl [Aspercreme (lidocaine HCl)] 4 % cream 1 appl topical BID PRN (Reason: pain) Qty: 120 0RF acetaminophen [Tylenol Extra Strength] 500 mg tablet 1,000 mg PO QID PRN (Reason: fever or pain) Qty: 14 0RF oxycodone 5 mg tablet 5 mg PO Q6H PRN (Reason: pain) Qty: 14 0RF Rx Instructions: Can be partially filled at patient request acetaminophen [Tylenol Extra Strength] 500 mg tablet 500 mg PO Q6H PRN (Reason: pain or fever) Qty: 20 0RF lidocaine [Lidoderm] 5 % adhesive patch,medicated 1 patch topical DAILY MDD remove after 12 hours PRN (Reason: pain) Qty: 30 0RF Rx Instructions: leave on most painful area for up to 12 hrs naproxen 500 mg tablet 500 mg PO BID PRN (Reason: pain) 10 Days Qty: 20 0RF cyclobenzaprine 5 mg tablet 5 mg PO Q8H PRN (Reason: pain (scale score 7-10)) 5 Days Qty: 14 0RF methocarbamol 750 mg tablet 750 mg PO TID PRN (Reason: muscle spasm) Qty: 20 0RF dicyclomine 10 mg capsule 10 mg PO QID 0RF diazepam 2 mg tablet 2 mg PO Q8H PRN (Reason: muscle spasm) 0RF Referrals: Long Hernandez [Physician] - Interventions: ED Discharge Assessment Last Done: 10/10/21 03:44
== END 2021-10-10 03:44 | disposition home or self-care (01) ==
PROVIDERS: Emergency Provider Emergency Medicine; PCP Internal Medicine
DX: H00.011 Hordeolum externum right upper eyelid (principal); H57.11 Ocular pain, right eye; I10 Essential (primary) hypertension; E78.5 Hyperlipidemia, unspecified; Z79.899 Other long term (current) drug therapy; Z79.01 Long term (current) use of anticoagulants
CPT/HCPCS: 99283; 99284

== ENCOUNTER 2021-12-27 11:04 | Emergency (ER) | payer OTHER, SELFPAY | END 2021-12-27 13:36 | disposition left against medical advice (07) | LOC: HO.ED 13:35 | PROVIDERS: Emergency Provider Emergency Medicine; PCP Internal Medicine | DX: S99.929A Unspecified injury of unspecified foot, initial encounter (principal); X58.XXXA Exposure to other specified factors, initial encounter; Y93.9 Activity, unspecified; Y92.9 Unspecified place or not applicable; Y99.9 Unspecified external cause status ==

== ENCOUNTER 2022-10-03 13:32 | Emergency (ER) | payer OTHER, SELFPAY ==
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
[2022-10-03 13:37] VITALS: BP 156/84; PULSE 66; RESP 18; TEMP 36.6; O2SAT 98; BMI 44.1
[2022-10-03 16:31] LABS: MANUAL DIFF FLAG NO
[2022-10-03 16:33] LABS: Basophils Percent Auto 0.2 % (0-2); Eosinophils Absolute Auto 0.1 X10*3/uL (0.0-0.4); Eosinophils Percent Auto 1.2 % (0-4); Hematocrit 31.4 % (37.0-47.0); Hemoglobin 10.4 g/dl (12.0-16.0); Imm Gran Abs Auto 0.03 X10*3/uL (0.00-0.03); Imm Gran Pct Auto 0.5 % (0.0-0.4); Lymphocytes Absolute Auto 2.7 X10*3/uL (1.2-4.9); Lymphocytes Percent Auto 44.4 % (20-40); Mean Corpuscular HGB Conc 33.1 g/dl (31.0-35.0); Mean Corpuscular Hemoglobin 31.4 pg (27.0-33.0); Mean Corpuscular Volume 94.9 fL (80.0-98.0); Mean Platelet Volume 10.3 fL (9.4-12.3); Monocytes Absolute Auto 0.4 X10*3/uL (0.1-1.2); Monocytes Percent Auto 5.8 % (2-11); Neutrophils Absolute Auto 2.9 x10*3/uL (2.0-8.3); Neutrophils Percent Auto 47.9 % (45-73); Platelet Count 332 X10*3/uL (160-400); Red Blood Count 3.31 X10*6/uL (4.20-5.50); Red Cell Distribution Width 15.2 % (11.0-16.0)
[2022-10-03 16:51] LABS: Alanine Aminotransferase 17 U/L (0-31); Albumin Level 4.1 g/dL (3.5-5.0); Alkaline Phosphatase 53 U/L (39-117); Anion Gap 13 (12-20); Aspartate Amino Transferase 20 U/L (5-31); Bilirubin Total 0.9 mg/dL (0.0-1.0); Blood Urea Nitrogen 13 mg/dL (9-16); Calcium 9.2 mg/dL (8.4-10.2); Carbon Dioxide 27 mmol/L (22-29); Chloride 106 mmol/L (96-108); Creatinine Clr Calc Pharmacy 87.9; Estimated Glomerular Filt Rate > 60; Glucose Random 108 mg/dL (60-115); Sodium 142 mmol/L (135-145); Total Protein 6.7 g/dL (6.5-8.0)
[2022-10-03 17:01] LABS: HCG Quantitative < 2 mIU/mL
[2022-10-03] MEDS: iohexoL 350 MG/ML 100 ML INFUS..BTL IV (17:26)
[2022-10-03] MEDS: Cyclobenzaprine HCl 10 MG TABLET PO (19:03)
[2022-10-03] MEDS: Acetaminophen 325 MG TABLET 650 MG PO (19:03)
[2022-10-03] MEDS: 0.9 % Sodium Chloride 1,000 ML 999 ML IV (19:04)
[2022-10-03 19:30] LABS: Lipase 25 U/L (8-78)
[2022-10-03 19:45] VITALS: BP 145/76; PULSE 60; RESP 16; TEMP 36.4; O2SAT 99
== END 2022-10-03 20:26 | disposition home or self-care (01) ==
PROVIDERS: Physician Assistant; Emergency Provider Emergency Medicine; PCP Internal Medicine
DX: Z04.1 Encounter for examination and observation following transport accident (principal); M79.18 Myalgia, other site; R51.9 Headache, unspecified; M54.2 Cervicalgia
CPT/HCPCS: 36415; 70450; 71260; 72125; 74177; 80053; 83690; 84702; 85025; 96360; 99284; Q9967

== ENCOUNTER 2022-12-18 08:25 | Emergency (ER) | payer OTHER, SELFPAY ==
[2022-12-18 08:27] VITALS: BP 163/86; PULSE 82; RESP 18; TEMP 36.2; O2SAT 98; BMI 45.3
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
[2022-12-18 10:40] VITALS: BP 155/86; PULSE 77; RESP 18; TEMP 36.6; O2SAT 100
[2022-12-18] MEDS: Ketorolac Tromethamine 30 MG/ML VIAL IVPUSH (10:55)
[2022-12-18] MEDS: Metoclopramide HCl 10 MG/2 ML VIAL IVPUSH (10:56)
[2022-12-18] MEDS: diphenhydrAMINE HCL 50 MG/ML VIAL IVPUSH (10:57)
--- NOTE | 2022-12-18 11:17 | PC.NURSE ---
report taken from vidhya rn, pt resting comfortably in stretcher. iv already in place and medicated. pt aware of plan of care and denied having any questions at this time.
== END 2022-12-18 12:43 | disposition home or self-care (01) ==
PROVIDERS: Emergency Provider Student in an Organized Health Care Education/Training Program; PCP Internal Medicine
DX: G43.909 Migraine, unspecified, not intractable, without status migrainosus (principal); Z79.899 Other long term (current) drug therapy
CPT/HCPCS: 96374; 96375; 99284; J1200; J1885; J2765

== ENCOUNTER 2023-07-12 20:55 | Emergency (ER) | payer OTHER, SELFPAY ==
[2023-07-12 21:24] VITALS: BP 144/93; PULSE 73; RESP 18; TEMP 37; O2SAT 98; BMI 45.2
[2023-07-12 22:46] VITALS: BP 156/92; PULSE 69; RESP 16; TEMP 36.6
[2023-07-12 23:41] LABS: Appearance Urine Clear; Color Urine Yellow; Glucose Urine UA Negative (Negative); Leukocyte Esterase Urine Negative (Negative); Nitrite Urine Negative (Negative); PH 5.5 (5.0-9.0); UMIC TRIGGER UACC YES; Urine Blood Small (1+) (Negative); Urine Ketones Negative (Negative); Urine Protein Negative (Neg-Trace)
[2023-07-13 00:05] LABS: Bacteria Urine None Seen (None Seen); Hyaline Casts Urine 0-2 /LPF (0-2); Squamous Epithelial Cell Urine 0-2 /HPF (0-2); WBC Urine 0-5 /HPF (0-5)
[2023-07-13 00:34] VITALS: BP 145/77; PULSE 60; RESP 17; TEMP 37.1; O2SAT 99
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
[2023-07-13 01:34] VITALS: BP 147/80; PULSE 65; RESP 18; TEMP 36.6; O2SAT 99
== END 2023-07-13 01:36 | disposition home or self-care (01) ==
PROVIDERS: Emergency Provider Student in an Organized Health Care Education/Training Program; PCP Internal Medicine
DX: M54.50 Low back pain, unspecified (principal); G89.29 Other chronic pain; R32 Unspecified urinary incontinence
CPT/HCPCS: 81001; 99282; 99283

== ENCOUNTER 2023-08-09 09:31 | Outpatient (AMB) | payer OTHER, SELFPAY ==
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
[2023-08-09 09:45] VITALS: BP 140/86; PULSE 62; RESP 18; O2SAT 98; BMI 45.7
== END 2023-08-09 10:22 | disposition home or self-care (01) ==
PROVIDERS: PCP Internal Medicine; Visit Provider Nurse Practitioner Family
DX: R07.89 Other chest pain (principal); G58.8 Other specified mononeuropathies; M54.50 Low back pain, unspecified; M25.512 Pain in left shoulder; M54.2 Cervicalgia
CPT/HCPCS: 99204

== ENCOUNTER → 2023-08-09 09:31 | Outpatient (BNVA) | payer OTHER, SELFPAY | PROVIDERS: PCP Internal Medicine; Visit Provider Nurse Practitioner Family ==

== ENCOUNTER 2023-08-24 08:02 | Outpatient (AMB) | payer OTHER, SELFPAY ==
[2023-08-24 08:11] VITALS: BP 169/84; PULSE 80; RESP 12; O2SAT 98; BMI 45.3
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
== END 2023-08-24 08:48 | disposition home or self-care (01) ==
PROVIDERS: PCP Internal Medicine; Visit Provider Internal Medicine
DX: G58.8 Other specified mononeuropathies (principal)
CPT/HCPCS: 64420; 76942

== ENCOUNTER → 2023-08-24 08:02 | Outpatient (BNVA) | payer OTHER, SELFPAY | PROVIDERS: PCP Internal Medicine; Visit Provider Internal Medicine | DX: G58.8 Other specified mononeuropathies (principal) | CPT/HCPCS: 64420; J2795 ==

== ENCOUNTER 2023-08-30 10:26 | Outpatient (AMB) | payer OTHER, SELFPAY ==
[2023-08-30 10:44] VITALS: BP 168/102; PULSE 80; O2SAT 98; BMI 45.3
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
== END 2023-08-30 11:06 | disposition home or self-care (01) ==
PROVIDERS: PCP Internal Medicine; Visit Provider Nurse Practitioner Family
DX: M54.50 Low back pain, unspecified (principal); M47.816 Spondylosis without myelopathy or radiculopathy, lumbar region; R07.89 Other chest pain; G58.8 Other specified mononeuropathies; M54.2 Cervicalgia
CPT/HCPCS: 99214

== ENCOUNTER → 2023-08-30 10:26 | Outpatient (BNVA) | payer OTHER, SELFPAY | PROVIDERS: PCP Internal Medicine; Visit Provider Nurse Practitioner Family ==

== ENCOUNTER 2023-11-08 14:51 | Outpatient (AMB) | payer OTHER, SELFPAY ==
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
[2023-11-08 15:04] VITALS: BP 151/74; PULSE 65; O2SAT 97; BMI 44.2
== END 2023-11-08 16:02 | disposition home or self-care (01) ==
PROVIDERS: PCP Internal Medicine; Visit Provider Nurse Practitioner Family
DX: M54.50 Low back pain, unspecified (principal); M47.816 Spondylosis without myelopathy or radiculopathy, lumbar region; M54.2 Cervicalgia; M25.512 Pain in left shoulder; G58.8 Other specified mononeuropathies
CPT/HCPCS: 99214

== ENCOUNTER → 2023-11-08 14:51 | Outpatient (BNVA) | payer OTHER, SELFPAY | PROVIDERS: PCP Internal Medicine; Visit Provider Nurse Practitioner Family ==

== ENCOUNTER 2024-02-28 11:58 | Outpatient (AMB) | payer OTHER, SELFPAY ==
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
[2024-02-28 12:02] VITALS: BP 155/79; PULSE 69; O2SAT 98; BMI 42.5
== END 2024-02-28 12:12 | disposition home or self-care (01) ==
PROVIDERS: PCP Internal Medicine; Visit Provider Nurse Practitioner Family
DX: M47.816 Spondylosis without myelopathy or radiculopathy, lumbar region (principal); M54.50 Low back pain, unspecified; M53.3 Sacrococcygeal disorders, not elsewhere classified; M54.16 Radiculopathy, lumbar region; E66.01 Morbid (severe) obesity due to excess calories; Z68.41 Body mass index [BMI] 40.0-44.9, adult
CPT/HCPCS: 99214

== ENCOUNTER → 2024-02-28 11:58 | Outpatient (BNVA) | payer OTHER, SELFPAY | PROVIDERS: PCP Internal Medicine; Visit Provider Nurse Practitioner Family ==

== ENCOUNTER 2024-04-03 07:56 | Outpatient (REF) | payer OTHER, SELFPAY | END 2024-04-03 07:57 | disposition home or self-care (01) | LOC: CF 07:56 | PROVIDERS: Visit Provider Internal Medicine | DX: M53.3 Sacrococcygeal disorders, not elsewhere classified (principal) | CPT/HCPCS: 27096; J2003; J2795 ==

== ENCOUNTER 2024-04-03 09:16 | Outpatient (AMB) | payer OTHER, SELFPAY ==
[2024-04-03 09:21] VITALS: BP 158/77; PULSE 70; RESP 15; O2SAT 100
--- NOTE | 2024-04-03 09:22 | MHC.OFFVIS ---
Vital Signs 04/03/24 09:21 04/03/24 09:45 BP 158/77 H 162/68 H Blood Pressure Location Rt brachial Rt brachial Position Sitting Sitting Respiration 15 16 Pulse 70 64 Pulse Source Pulse Oximeter Pulse Oximeter Pulse Oximetry (%) 100 100 Oxygen Delivery Method Room Air Room Air Comment Pre-op Post-op Intake Visit Reasons: Left Dx SIJ inj Allergies azithromycin [From ZITHROMAX] Allergy (Severe, Verified 02/28/24 12:02) NAUSEA & VOMITING bee pollen [BEE STINGS] Allergy (Severe, Verified 02/28/24 12:02) ANAPHYLAXIS copper [COPPER] Allergy (Severe, Verified 02/28/24 12:02) BODY SWELLING tuberculin, purified protein deriva [TB TEST] Allergy (Severe, Verified 02/28/24 12:02) ANAPHYLAXIS zolpidem [From AMBIEN] Allergy (Severe, Verified 02/28/24 12:02) SYNCOPE nickel [NICKEL] Allergy (Mild, Verified 02/28/24 12:02) RASH pantoprazole Allergy (Unknown, Verified 02/28/24 12:02) Unknown ranitidine [From ZANTAC] Allergy (Unknown, Verified 02/28/24 12:02) SEVERE JOINT PAIN amlodipine Allergy (Verified 02/28/24 12:02) Unknown erythromycin base Adverse Reaction (Severe, Verified 02/28/24 12:02) Rash HPI HPI Left Dx SIJ inj: Details: Patient presents for scheduled procedure. Denies any recent cough, cold, infection, fever or other significant changes in medical history since last office visit. FORMERLY [facility], [facility]–1983 Medical History Hearing loss, left Bilateral tinnitus Graves disease Alopecia Vitamin D deficiency Hyperthyroidism High cholesterol HTN (hypertension) Surgical History History of tubal ligation Family History Maternal Grandmother Hypothyroidism Social History Alcohol intake: never Patient Tobacco Use Status: Never used Tobacco Office Procedures Joint Injection/Aspiration Joint Injection/Aspiration Details: Diagnostic Sacroiliac Joint Injection, left The procedure, its benefits, and its risks were explained and written informed consent was obtained from the patient. Immediately prior to starting the procedure, a time-out safety check was conducted. The patient's identification, procedure name, procedure site, and procedure laterality were confirmed with the patient. ? Patient was placed prone on the fluoroscopy table and the lumbosacral area was prepped using ChloraPrep and draped with sterile drapein standard fashion. The C-arm was rotated in a contralateral oblique fashion until the medial border of the iliac crest no longer foreshadowed the posterior sacroiliac joint line. The skin and subcutaneous tissue was anesthetized using 1 mL of 0.75% plain lidocaine with 1.5-inch 25-gauge needle in the middle region of the joint line.? A 3.5-inch 22-gauge spinal needle with small bend on the tip was slowly advanced towards the joint line, coaxial to the x-ray beam. Once bony content was obtained, the needle was easily slid into the intra-articular space.? Intra-articular needle position was confirmed using lateral fluoroscopy.? A total volume of 2.5mL of solution 0.5% of ropivacaine was injected intra-articularly. The stylet was reinserted and needle was removed. The patient tolerated the procedure well. Patient denied any lower extremity weakness or numbness. Patient was observed for 30 min and was discharged after fulfilling the standard discharge criteria. Coding 28999 - Sacroiliac Procedure code (CPT) selection complete Assessment & Plan Assessment & Plan (1) Sacroiliac joint pain: Code(s): M53.3 - Sacrococcygeal disorders, not elsewhere classified Category: Medical Plan Patient is status post left diagnostic sacroiliac joint injection. Patient tolerated procedure well and was discharged home in stable condition with discharge instructions. All questions were answered. We will follow-up via telephone or in clinic to assess response to therapy. A follow-up appointment was made during today's visit. Orders: Orders FL guidance in treatment room Today M53.3 - Sacrococcygeal disorders, not elsewhere classified Coding Level of Care Code Procedure Only Diagnoses Sacroiliac joint pain M53.3 CPT Codes Coding - Joint 9: 52872 - Sacroiliac ([id number])
[2024-04-03 09:45] VITALS: BP 162/68; PULSE 64; RESP 16; O2SAT 100
== END 2024-04-03 09:45 | disposition home or self-care (01) ==
LOC: HO.PMCPRC 09:16
PROVIDERS: PCP Internal Medicine; Visit Provider Internal Medicine
DX: M53.3 Sacrococcygeal disorders, not elsewhere classified (principal)
CPT/HCPCS: 27096

== ENCOUNTER 2024-04-08 08:53 | Outpatient (AMB) | payer OTHER, SELFPAY ==
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
[2024-04-08 09:03] VITALS: BP 164/75; PULSE 56; O2SAT 98; BMI 42.5
== END 2024-04-08 09:31 | disposition home or self-care (01) ==
PROVIDERS: PCP Internal Medicine; Visit Provider Nurse Practitioner Family
DX: M47.816 Spondylosis without myelopathy or radiculopathy, lumbar region (principal); M54.50 Low back pain, unspecified; M53.3 Sacrococcygeal disorders, not elsewhere classified; E66.01 Morbid (severe) obesity due to excess calories; Z68.41 Body mass index [BMI] 40.0-44.9, adult
CPT/HCPCS: 99214

== ENCOUNTER → 2024-04-08 08:53 | Outpatient (BNVA) | payer OTHER, SELFPAY | PROVIDERS: PCP Internal Medicine; Visit Provider Nurse Practitioner Family ==

== ENCOUNTER 2024-04-25 11:09 | Outpatient (AMB) | payer OTHER, SELFPAY ==
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
[2024-04-25 11:12] VITALS: BP 194/82; PULSE 59; RESP 15; O2SAT 100; BMI 42.9
== END 2024-04-25 11:54 | disposition home or self-care (01) ==
PROVIDERS: PCP Internal Medicine; Visit Provider Internal Medicine
DX: M54.16 Radiculopathy, lumbar region (principal); M53.3 Sacrococcygeal disorders, not elsewhere classified; M47.816 Spondylosis without myelopathy or radiculopathy, lumbar region; M54.50 Low back pain, unspecified
CPT/HCPCS: 99214

== ENCOUNTER → 2024-04-25 11:09 | Outpatient (BNVA) | payer OTHER, SELFPAY | PROVIDERS: PCP Internal Medicine; Visit Provider Internal Medicine ==

== ENCOUNTER 2024-11-10 08:32 | Outpatient (AMB) | payer OTHER, SELFPAY ==
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
--- OUTSIDE RECORDS SUMMARY | 2024-11-10 08:35 | XMS_ITS | Encounter Summary ---
Author Organization [facility] Address [address] [place] [address] Care Team Providers Care Lotus Notes Developer Name Role Phone Geoffrey Payne MD Primary Care Provider Encounter Details Date Type Department Care Team (Late st Contact Info) Description 11/20/2023 Scanned Document [facility] [address] [place] [phone] Alexis Lawton MD [address] [place] [address] Social History Tobacco Use Types Packs/Day Years Used Date Smoking Tobacco: Never Smokeless Tobacco: Never Alcohol Use Standard Drinks/Week Comments Yes 0 (1 standard drink = 0.6 oz pur e alcohol) SOCIAL [facility] - Occupational Stress Questionnaire Answer Date Recorded Do you feel stress - tense, restless, nervous, or anxious, or unable to sleep at night because your mind is troubled all the time - these days? Not at all 11/15/2023 Physical Activity Answer Date Recorded On average, how many days pe r week do you engage in moderate to strenuous exercise (like a brisk walk)? 5 days 11/15/2023 On average, how many minutes do you exercise per day at this level? 60 min 11/15/2023 Comments Unknown Sex and Gender Information Value Date Recorded Sex Assigned at Female 04/05/2023 9:51 AM EDT Legal Sex Female 2:19 PM EDT Gender Identity Female 07/13/2023 2:56 PM EST Sexual Orientation Heterosexual (straight) 07/13 2:56 PM EST documented as of this encounter Plan of Treatment Upcoming Encounters Date Type Department Care Team (Late st Contact Info) Description 01/06/2025 8:00 AM EDT Procedure visit [facility] [address] [facility] [address] [place] [address] Alexis Lawton MD [address] [facility] [address] [place] [address] 03/05/2025 8:20 AM EDT Office Visit [facility] [place] [address] [facility] [address] [place] [phone] Lenore De La Torre, [place] [address] [facility] [address] [place] [phone] documented as of this encounter Visit Diagnoses Not on filedocumented in this encounter Care Teams Lotus Notes Developer Relationship Specialty Start Date End Date Geoffrey Payne MD [address] [place] [address] PCP - General 04/03/23 documented as of this encounter
--- OUTSIDE RECORDS SUMMARY | 2024-11-10 08:35 | XMS_ITS ---
Author Organization [facility] Address [address] [place] [phone] Care Team Providers Care Dispensing Optician Apprentice Name Role Phone SHAWN STROUD Unavailable [phone] MEDICATIONS Medication SIG (Take, Route, Fr equency, Duration) Notes Start Date End Date Status Wegovy 0.25 MG/0.5ML Inject 0.25MG Subcu taneous weekly for 30 days 10/29/2023 Active Encounters Encounter Location Date Provider Diagnosis [facility] [address] [place] [phone] 10/25/2023 SHAWN STROUD PLAN OF TREATMENT Medication Medication Name Sig Start Date Stop Date Notes Wegovy 0.25 MG/0.5ML Inject 0.25MG Subcu taneous weekly for 30 days 10/29/2023 Progress Notes * JASENChataOB: 2 (53 yo F)Acc No.[id number]:10/25/2023 Patient:??Selam AGGARWAL :1970?Age:53 Y?Sex:Fe male Address:[place] [address] * Refills?? Start Wegovy Solution Auto-injector, 0.25 MG/0.5ML, Subcutaneous, 4 Pen Needle, Inject 0.25MG, weekly, 30 days, Refills=0 * true * Date:??
--- OUTSIDE RECORDS SUMMARY | 2024-11-10 08:35 | XMS_ITS | Clinical Summary ---
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 Name Role Phone Delmy Payne MD Primary Care Provider [phone] Allergies Active Allergy Reactions Criticality Noted Date Comments Amlodipine 03/13/2022 Other Reaction(s): Other (See Comments) Per pt had excessive swelling and got blood clot on leg Per pt had excessive swelling and got blood clot on leg Per pt had excessive swelling and got blood clot on leg Azithromycin Rash Low 01/29/2015 Other Reaction(s): Other (See Comments) Other reaction(s): Gastritis, Other (see comments) Other reaction(s): Other (see comments), Other (See Comments), rash Other reaction(s): Gastritis, Other (see comments) Other reaction(s): Gastritis, Other (see comments) Other reaction(s): Other (see comments), Other (See Comments), rash Other reaction(s): Gastritis, Other (see comments) Bee Venom Protein (Honey Bee) Anaphylaxis High 01/29/2015 Copper Anaphylaxis High 01/29/2015 Erythromycin Rash Low 09/07/2005 Other Reaction(s): Other (See Comments) Other reaction(s): Other (see comments), Other (See Comments) Other reaction(s): Other (see comments), Other (See Comments) Lidocaine Hcl 03/13/2022 Other reaction(s): lung pain Nickel 01/29/2015 Other Reaction(s): Other (See Comments) Other reaction(s): Other (see comments) Skin Irritation Other reaction(s): Other (see comments), Other (See Comments) Other reaction(s): Other (see comments) Skin Irritation Other reaction(s): Other (see comments) Skin Irritation Other reaction(s): Other (see comments), Other (See Comments) Other reaction(s): Other (see comments) Skin Irritation Pantoprazole 10/29/2015 Other Reaction(s): Other (See Comments) Other reaction(s): Other (see comments) GI problems Other reaction(s): Other (see comments), Other (See Comments) Other reaction(s): Other (see comments) GI problems Other reaction(s): Other (see comments) GI problems Other reaction(s): Other (see comments), Other (See Comments) Other reaction(s): Other (see comments) GI problems Ranitidine 10/29/2015 Other Reaction(s): Other (See Comments) Other reaction(s): Dizzy spells, Joint pain GI pain, vision problems, Other reaction(s): Dizzy spells, Joint pain, Other (see comments), Other (See Comments) Other reaction(s): Dizzy spells, Joint pain GI pain, vision problems, Sulfa (Sulfonamide Antibiotics) 09/07/2005 sulfa eye drops Tuberculin, Purified Protein Derivative 10/12/2017 Anaphylactic reaction; aplisol type Zolpidem Nausea And Vomiting High 01/29/2015 Other Reaction(s): Other (See Comments) Other reaction(s): OTHER, Other (see comments) Passed out & vomited uncontroably Other reaction(s): Other (see comments), Other (See Comments), vomiting Other reaction(s): OTHER, Other (see comments) Passed out & vomited uncontroably Other reaction(s): OTHER, Other (see comments) Passed out & vomited uncontroably Other reaction(s): Other (see comments), Other (See Comments), vomiting Other reaction(s): OTHER, Other (see comments) Passed out & vomited uncontroably Medications b complex vitamins capsule Take by mouth. Active CALCIUM CARBONATE-VITAMI N D3 ORAL Take 2 tablets by mouth. Active cholecalciferol (VITAMIN D-3) 50 mcg (2,000 unit) capsule Take by mouth. 01/12/20 Active clotrimazole-bet amethasone (LOTRISONE) 1-0.05 % cream apply SPARINGLY to affected area twice a day for UP TO 2 WEEKS 11/29/19 Active cyclobenzaprine (FLEXERIL) 5 mg tablet Take 1 tablet (5 mg total) by mouth at bedtime as needed for muscle spasms (or back pain.). 04/25/20 Active diazePAM (VALIUM) 2 mg tablet 0 Refills, Maintenance, 01/12/20 9:01:00 EDT 01/12/20 Active diclofenac (VOLTAREN) 1 % topical gel Apply 4 g topically 4 (four) times a day. 01/13/20 Active EPINEPHrine (EPIPEN) 0.3 mg/0.3 mL injection Inject 0.3 mL (0.3 mg total) into the thigh if needed for anaphylaxis. 01/13/20 Active famotidine (PEPCID) 20 mg tablet 0 Refills, Maintenance, 01/12/20 9:01:00 EDT 01/12/20 Active ferrous sulfate 325 mg (65 mg elemental iron) tablet Iron, Refills 0, Maintenance, 09/17/19 8:23:00 EDT, Supply 09/17/19 Active ibuprofen (ADVIL,MOTRIN) 400 mg tablet 08/10/19 Active lidocaine (LIDODERM) 5 % patch Apply 1 patch topically 1 (one) time each day. No longer than 12 hours in any 24 hour period 02/20/20 Active MAGNESIUM ASPARTATE HCL ORAL Take 1,230 mg by mouth. 01/12/20 Active methIMAzole (TAPAZOLE) 5 mg tablet Take 1 tablet (5 mg total) by mouth 1 (one) time each day. Active PHENobarbital-hy oscyamine-atropi ne-scopoloamine () 16.2-0.1037 -0.0194 mg/5 mL elixir Take by mouth. Active predniSONE (DELTASONE) 20 mg tablet Take 0.5 tablets (10 mg total) by mouth 1 (one) time each day. For 4 days 12/18/19 Active pseudoephedrine ER (SUDAFED) 240 mg tablet extended release 24 hr 24 Hour tablet Take 1 tablet (240 mg total) by mouth 1 (one) time each day in the morning. 12/16/19 18 Active scopolamine (TRANSDERM-SCOP) 1 mg over 3 days patch 3 day 1 patch every 3 (three) days. 01/14/20 22 Active timoloL (BETIMOL) 0.25 % ophthalmic solution 1-2 drops 2 (two) times a day. Active cetirizine (ZyrTEC) 5 mg chewable tablet Chew 1 tablet (5 mg total) 1 (one) time each day. Active methocarbamoL (ROBAXIN) 500 mg tablet Take 1 tablet (500 mg total) by mouth 3 (three) times a day if needed for muscle spasms ((back spasm).). 90 each 1 05/13/20 24 Active meloxicam (MOBIC) 15 mg tabletIndication s:Whole body pain TAKE 1 TABLET BY MOUTH ONCE DAILY IF NEEDED FOR MODERATE PAIN (SCIATICA, BODY PAIN) 30 tablet 1 08/20/19 25 Active traMADoL (ULTRAM) 50 mg tabletIndication s:Whole body pain Take 1 tablet (50 mg total) by mouth every 6 (six) hours if needed for severe pain. Max Daily Amount: 200 mg 15 tablet 08/07/19 25 Active diclofenac (CATAFLAM) 50 mg tablet Take 1 tablet (50 mg total) by mouth 2 (two) times a day if needed. 03/14/20 24 Active indapamide (LOZOL) 2.5 mg tablet 10/02/19 25 Active ipratropium (ATROVENT) 42 mcg (0.06 %) nasal spray Administer 1 spray into affected nostril(s). Active methylPREDNISolo ne (MEDROL) 4 mg tablet TAKE 6 TABLETS ON DAY 1 DIRECTED ON PACKAGE AND DECREASE BY 1 TAB EACH DAY FOR A TOTAL OF 6 DAYS 10/29/19 23 Active naloxone (NARCAN) 4 mg/0.1 mL nasal spray ADMINISTER 1 SPRAY INTO ONE NOSTRIL NEEDED. CALL 911. REPEAT AFTER 2-3 MIN IF NO/MINIMAL RESPONSE 11/08/19 24 Active cetirizine (ZyrTEC) 10 mg tablet Take 1 tablet (10 mg total) by mouth 2 (two) times a day. 06/23/20 24 Active lactulose (CHRONULAC) solutionIndicati ons:Constipation , unspecified constipation type Take 30 mL (20 g total) by mouth 2 (two) times a day. 1800 mL 10/30/19 25 025 Active lactulose (CHRONULAC) solution Take 30 mL (20 g total) by mouth 2 (two) times a day. 30 mL 10/30/19 25 025 Discontinued Active Problems Problem Noted Date Diagnosed Date Whole body pain 12/26/2023 Chronic bilateral low back pain with left-sided sciatica 12/26/2023 Diffuse pain 10/08/2023 Intractable migraine without aura and without status migrainosus 01/05/2023 New persistent daily headache 11/17/2022 Tinnitus of both ears 11/17/2022 Breast pain 10/09/2022 Overview (05/13/2024): Last Assessment & Plan: I counseled Selam that her breast pain is likely trauma related and that there are no worrisome findings on exam to make us think otherwise. I explained that she can use ibuprofen, Tylenol, heat, pain patches. If not improving after 1-2 months, she should return for repeat evaluation. Overflow incontinence 10/09/2022 Overview (05/13/2024): Last Assessment & Plan: I explained that based on her mechanism of injury, normal motor function and normal CT at the hospital, it is unlikely she has some kind of nerve injury resulting in this symptom. I encouraged her to monitor for sx and wait to see if it improves in the next month and if not, she should be seen by Urogyn and or Neurology. She Urinary frequency 10/09/2022 Microscopic hematuria 07/19/2022 Positive BRE (antinuclear antibody) 04/10/2022 Graves disease 04/10/2022 Bilateral posterior uveitis 04/10/2022 Primary osteoarthritis of fi rst carpometacarpal joint of right hand 08/18/2021 Eczema 08/02/2021 B12 deficiency 03/15/2021 Palpitation 03/09/2021 Overview (05/13/2024): Last Assessment & Plan: Palpitation has mostly controlled with treatment for hyperthyroidism. She is being followed by endocrine team. Hypomagnesemia 12/26/2019 Vitamin D deficiency 12/26/2019 Hyperthyroidism 10/11/2019 LVH (left ventricular hypertrophy) 06/19/2019 Overview (05/13/2024): Mild per echo on 06/11/2019, trace mitral regurgitation, trace tricuspid regurgitation Bilateral leg edema 02/19/2019 Overview (05/13/2024): Last Assessment & Plan: She was seen by vascular team with plan of venous ablation procedure. She has stopped Eliquis after visit with Dr. Martin. There was probably confusion about when to stop anticoagulation. I have placed a phone call to Dr. Martin's office a couple of times today and hasn't got back from them yet. Angio-edema 01/01/2018 HTN (hypertension), benign 06/13/2017 Overview (05/13/2024): Last Assessment & Plan: Will consider to add losartan lovastatin for hypertension. Prediabetes 04/05/2017 Migraine aura without headache 09/02/2016 Anemia 01/25/2016 Overview (05/13/2024): Seen in past with hematology, see 03/19/[address] Marin. No further work up needed Fatty liver 01/13/2016 Hiatal hernia 08/13/2015 Esophageal spasm 01/22/2015 Overview (05/13/2024): Normal barium swallow examination 01/15/[address] [facility] Berkowitz at [facility]: EGD: grade A esophagitis, gastritis and hiatal hernia 03/2015 Lumbar disc herniation 01/06/2015 Menorrhagia 03/19/2013 Obesity 03/19/2013 PCOS (polycystic ovarian syndrome) 03/19/2013 Renal stone 09/07/2006 Borderline glaucoma with ocular hypertension 04/2006 Allergic rhinitis 09/07/2005 Encounters Date Type Department Care Team Description 11/04/2024 10:00 AM EDT Office Visit General Surgery [address] [place] [phone] Judith Abdullahi MD Mastalgia (Primary Dx) 10/29/2024 Telephone Gastroenterology - [address] [facility] [address] [facility] [address] [place] [phone] Amberly Berkowitz MD Provider Call Back 10/14/2024 2:49 PM EDT - 10/14/2024 11:59 PM EDT Hospital Encounter Radiology Department - [address] [phone] Abnormal mammogram Discharge Disposition: Home or Self Care 10/14/2024 2:43 PM EDT - 10/14/2024 11:59 PM EDT Hospital Encounter Radiology Department - [address] [phone] Abnormal mammogram Discharge Disposition: Home or Self Care 10/13/2024 Telephone General Surgery - [facility] [employer] [address] [facility] [address] [place] [phone] Judith Abdullahi MD Forms/questionnaires 10/08/2024 7:29 AM EDT - 10/08/2024 11:59 PM EDT Hospital Encounter Radiology Department - [address] [phone] Encounter for screening mammogram for breast cancer Discharge Disposition: Home or Self Care 10/03/2024 8:00 AM EDT Consult Rehabilitation Medicine - [place] [address] [place] [phone] Lizet Paredes MD Sciatica, left side from Last 3 Months Immunizations Name Administration Dates Next Due Hepatitis B (Hijegcu-W-Eyhek , Recombivax HB-Adult) 19yo and older 07/12/2006,02/09/2006,01/08/2006 Influenza Quadravalent, MDCK , 0.5ml, with preservative (Flucelvax) 6mo and older 04/22/2017 PPD Test 01/17/2017,11/14/2016,10/15/2006 Td Tetanus diptheria (Tdvax) 7yo and older 07/02 Tdap Tetanus diptheria acell ular pertussis (Boostrix; Adacel) 7yo and older 03/21/2023,01/22/2015 Surgical History Surgery Date Site/Laterality Comments TUBAL LIGATION 2008 PROCEDURE:TUBAL LIGATION Medical History Medical History Date Comments Graves disease DX:Graves diseas e Eczema DX:Eczema Kidney stone DX:Kidney stone Hyperthyroidism DX:Hyperthyroidi sm Tinnitus, bilateral DX:Tinnitus, bilateral Post concussive syndrome DX:Post concussive syndrome Macular hole DX:Macular hole; COMMENT:Right eye Fatty liver 01/13/2016 Family History Medical History Relation Name Comments Heart disease Brother Sarcoidosis Cousin 1 Sarcoidosis Cousin 2 Crohn's disease Cousin 3 Diabetes Father Relation Name Status Comments Brother Cousin 1 Cousin 2 Cousin 3 Father Alive Mother Alive Social History Tobacco Use Types Packs/Day Years Used Date Smoking Tobacco: Never Smokeless Tobacco: Never Alcohol Use Standard Drinks/Week Comments Yes 0 (1 standard drink = 0.6 oz pur e alcohol) Comments Unknown Sex and Gender Information Value Date Recorded Sex Assigned at Not on file Legal Sex Female 12:44 AM EST Gender Identity Not on file Sexual Orientation Not on file Obstetrics History Para Term AB IAB SAB Ectopic Multiple Livin g Live Births 4 4 4 4 Date Outcome GA Total Labor Labor/2nd/3rd Weight Sex Type Anes PTL Rissa A1 A5 Name Clin Term Term Term Term Last Filed Vital Signs Vital Sign Reading Time Taken Comments Blood Pressure 155/85 11/04/2024 9:36 AM EDT Pulse 80 11/04/2024 9:36 AM EDT Temperature 36.3 ??C (97.3 ??F) 11/04/2024 9:36 AM ED T Respiratory Rate - - Oxygen Saturation - - Inhaled Oxygen Concentration - - Weight 103 kg (226 lb) 11/04/2024 9:36 AM EDT Height 156.2 cm (5' 1.5 ) 11/04/2024 9:36 AM EDT Body Mass Index 42.01 11/04/2024 9:36 AM EDT Plan of Treatment Upcoming Encounters Date Type Department Care Team (Late st Contact Info) Description 11/19/2024 1:50 PM EDT Office Visit Gastroenterology - [address] [place] [phone] Coretta Max, HOSE MAKER [address] [facility] [address] [place] [phone] 12/08/2024 8:30 AM EDT Office Visit Rheumatology - [place] [address] [place] [phone] Olga Gill MD [address] [place], [place] [phone] Health Maintenance Due Date Last Done Comments Diabetes: Annual Foot Exam 09/12/1981 Diabetes: Annual Retina Eye Exam 09/12/1981 Hepatitis A Vaccines (1 of 2 - Risk 2-dose series) 09/12/1990 Pneumococcal Vaccine: 50+ Years (1 of 2 - PCV) 09/12/1990 Pneumococcal Vaccine: Pediatrics (0 to 5 Years) and At-Risk Patients (6 to 64 Years) (1 of 2 - PCV) 09/12/1990 Cervical Cancer Screening: Pap Smear 01/21/2021 01/21/2018 Zoster Vaccines (1 of 2) 09/12/2021 Cholesterol Screening (Lipid Panel) 06/10/2022 Depression Screening 06/10/2022 Hepatitis C Screening 06/10/2022 Social Influencers of Health Screening 06/10/2022 COVID-19 Vaccine ( season) 2024 Diabetes: Annual Urine Albumin-Creatinine Ratio (uACR) 10/03/2024 Diabetes: Blood Sugar Control Test (HGBA1C) 10/03/2024 Diabetes: Annual GFR (Glomerular Filtration Rate) 10/07/2024 10/08/2023, 10/08/2023 Hypertension/CHF/CAD Annual BMP Blood Test 10/07/2024 10/08/2023, 10/08/2023 Influenza Vaccine (Season Ended) 2025 04/22/2017 Breast Cancer Screening 10/14/2026 10/15/19, 10/08/2024, 09/24/2023, Additional history exists DTaP,Tdap,and Td Vaccines (4 - Td or Tdap) 03/21/2033 03/21/2023, 01/22/2015, 07/02/1998 Colorectal Cancer Screening: Colonoscopy 07/21/2034 07/21/2024 Hepatitis B Vaccines Completed 07/12/2006, 02/09/2006, 01/08/2006 HIV Screening Completed 04/11/2022 HIB Vaccines Aged Out No longer eligi ble based on patient's age to complete this topic HPV Vaccines Aged Out No longer eligi ble based on patient's age to complete this topic IPV Vaccines Aged Out No longer eligi ble based on patient's age to complete this topic MMR Vaccines Aged Out No longer eligi ble based on patient's age to complete this topic Meningococcal ACWY Vaccine Aged Out N o longer eligible based on patient's age to complete this topic Meningococcal B Vaccine Aged Out No l onger eligible based on patient's age to complete this topic RSV Immunization Patients Under 20 months Aged Out No longer eligible based on patient's age to complete this topic Varicella Vaccines Aged Out No longer eligible based on patient's age to complete this topic Procedures Procedure Name Priority Date/Time Associated Diagnosis Comments US BREAST LIMITED LEFT Routine 10/14/2024 3:08 PM EDT Abnormal mammogram MG MAMMO DIGITAL DIAGNOSTIC W SONG LEFT Routine 10/14/2024 2:48 PM EDT Abnormal mammogram MG MAMMO DIGITAL SCREENING W SONG BILAT Routine 10/08/2024 7:42 AM EDT Encounter for screening mammogram for breast cancer EXTERNAL COLONOSCOPY REPORT Routine 07/21/2024 4:19 PM EST ANNUAL BMP BLOOD TEST Routine 10/08/2023 HIV SCREENING Routine 04/11/2022 PAP SMEAR Routine 01/21/2018 from Last 3 Months or Most Recently Relevant to Health Maintenance Results * US Breast Limited Left (10/14/2024 3:08 PM EDT) Anatomical Region Laterality Modality Breast Left Ultrasound 10/14/2024 3:01 PM EDT Impressions 10/14/2024 3:20 PM EDT Benign. ??Findings and recommendations were conveyed to the patient. ? BI-RADS CATEGORY: 1 - NEGATIVE RECOMMENDATION: Return to annual mammography. Return to annual mammography. Return to annual mammography. Return to annual mammography. Mammo Location: [facility], [address] [place] [address], [phone], . -------- FINAL REPORT -------- Dictated By: Karen Hansen Dictated Date: 10/14/2024 15:01 ET Assigned Physician: Karen Hansen Reviewed and Electronically Signed By: Karen Hansen Signed Date: 10/14/2024 15:20 ET Workstation ID: [id number] Transcribed By: Self Edit Transcribed Date: 10/14/2024 15:20 ET Narrative 10/14/2024 3:20 PM EDT CLINICAL: 54 years old, Female, focal asymmetries anterior left breast on screening mammogram of 10/18/2024. COMPARISON: Mammograms ?? FINDINGS: MAMMOGRAPHY TECHNIQUE: Mediolateral, spot compression MLO , and spot compression CC views of the left breast were obtained digitally with 3-D mammogram (digital breast tomosynthesis). ??Computer-aided detection was utilized in evaluation of this exam (CAD). The focal asymmetries suggested on the screening study completely efface on the additional views, and are not visible on the mediolateral view. BREAST DENSITY: C - The breasts are heterogeneously dense which may obscure small masses. ULTRASOUND TECHNIQUE: Ultrasound evaluation of the upper outer left breast and retroareolar left breast was performed all 4 quadrants were examined. There is no evidence of morphologically suspicious mass. Procedure Note Karen Hansen MD - 10/14/2024 CLINICAL: 54 years old, Female, focal asymmetries anterior left breast onscreening mammogram of 10/18/2024. COMPARISON: Mammograms FINDINGS: MAMMOGRAPHY TECHNIQUE: Mediolateral, spot compression MLO , and spot compression CCviews of the left breast were obtained digitally with 3-D mammogram(digital breast tomosynthesis). Computer-aided detection was utilized inevaluation of this exam (CAD). The focal asymmetries suggested on the screening study completely effaceon the additional views, and are not visible on the mediolateral view. BREAST DENSITY: C - The breasts are heterogeneously dense which mayobscure small masses. ULTRASOUND TECHNIQUE: Ultrasound evaluation of the upper outer left breast andretroareolar left breast was performed all 4 quadrants were examined. There is no evidence of morphologically suspicious mass. IMPRESSION: Benign. Findings and recommendations were conveyed to the patient. BI-RADS CATEGORY: 1 - NEGATIVE RECOMMENDATION: Return to annual mammography. Return to annual mammography. Return toannual mammography. Return to annual mammography. Mammo Location: [facility], [address] [place] [address], [phone], . -------- FINAL REPORT -------- Dictated By: Karen Hansen Dictated Date: 10/14/2024 15:01 ET Assigned Physician: Karen Hansen Reviewed and Electronically Signed By: Karen Hansen Signed Date: 10/14/2024 15:20 ET Workstation ID: [id number] Transcribed By: Self Edit Transcribed Date: 10/14/2024 15:20 ET us Sofia MATIASM IMG US PROCEDURES Final Res ult * MG Mammo Digital Diagnostic w Song Left (10/14/2024 2:48 PM EDT) Anatomical Region Laterality Modality Breast Left Mammography 10/14/2024 3:01 PM EDT Impressions 10/14/2024 3:20 PM EDT Benign. ??Findings and recommendations were conveyed to the patient. ? BI-RADS CATEGORY: 1 - NEGATIVE RECOMMENDATION: Return to annual mammography. Return to annual mammography. Return to annual mammography. Return to annual mammography. Mammo Location: [facility], [address] [place] [address], [phone], . -------- FINAL REPORT -------- Dictated By: Karen Hansen Dictated Date: 10/14/2024 15:01 ET Assigned Physician: Karen Hansen Reviewed and Electronically Signed By: Karen Hansen Signed Date: 10/14/2024 15:20 ET Workstation ID: [id number] Transcribed By: Self Edit Transcribed Date: 10/14/2024 15:20 ET Narrative 10/14/2024 3:20 PM EDT CLINICAL: 54 years old, Female, focal asymmetries anterior left breast on screening mammogram of 10/18/2024. COMPARISON: Mammograms ?? FINDINGS: MAMMOGRAPHY TECHNIQUE: Mediolateral, spot compression MLO , and spot compression CC views of the left breast were obtained digitally with 3-D mammogram (digital breast tomosynthesis). ??Computer-aided detection was utilized in evaluation of this exam (CAD). The focal asymmetries suggested on the screening study completely efface on the additional views, and are not visible on the mediolateral view. BREAST DENSITY: C - The breasts are heterogeneously dense which may obscure small masses. ULTRASOUND TECHNIQUE: Ultrasound evaluation of the upper outer left breast and retroareolar left breast was performed all 4 quadrants were examined. There is no evidence of morphologically suspicious mass. Procedure Note Karen Hansen MD - 10/14/2024 CLINICAL: 54 years old, Female, focal asymmetries anterior left breast onscreening mammogram of 10/18/2024. COMPARISON: Mammograms FINDINGS: MAMMOGRAPHY TECHNIQUE: Mediolateral, spot compression MLO , and spot compression CCviews of the left breast were obtained digitally with 3-D mammogram(digital breast tomosynthesis). Computer-aided detection was utilized inevaluation of this exam (CAD). The focal asymmetries suggested on the screening study completely effaceon the additional views, and are not visible on the mediolateral view. BREAST DENSITY: C - The breasts are heterogeneously dense which mayobscure small masses. ULTRASOUND TECHNIQUE: Ultrasound evaluation of the upper outer left breast andretroareolar left breast was performed all 4 quadrants were examined. There is no evidence of morphologically suspicious mass. IMPRESSION: Benign. Findings and recommendations were conveyed to the patient. BI-RADS CATEGORY: 1 - NEGATIVE RECOMMENDATION: Return to annual mammography. Return to annual mammography. Return toannual mammography. Return to annual mammography. Mammo Location: [facility], [address] [place] [address], [phone], . -------- FINAL REPORT -------- Dictated By: Karen Hansen Dictated Date: 10/14/2024 15:01 ET Assigned Physician: Karen Hansen Reviewed and Electronically Signed By: Karen Hansen Signed Date: 10/14/2024 15:20 ET Workstation ID: [id number] Transcribed By: Self Edit Transcribed Date: 10/14/2024 15:20 ET Sofia Maciasseamustressa CN IMG BI PROCEDURES Final Res ult * (ABNORMAL) MG Mammo Digital Screening w Song bilat (10/08/2024 7:42 AM EDT) Anatomical Region Laterality Modality Breast Bilateral Mammography 10/08/2024 10:2 0 AM EDT Impressions 10/08/2024 10:48 AM EDT Asymmetric opacity in the left upper outer breast, anterior 3rd. ??Additional evaluation is recommended. BI-RADS CATEGORY: 0 - INCOMPLETE - NEED ADDITIONAL IMAGING EVALUATION RECOMMENDATION: Additional left breast imaging recommended. Ultrasound is recommended for the Left Breast. Mammo Location: [facility], [address] [place] [address], [phone], . -------- FINAL REPORT -------- Dictated By: Zari Cox Dictated Date: 10/08/2024 10:20 ET Assigned Physician: Zari Cox Reviewed and Electronically Signed By: Zari Cox Signed Date: 10/08/2024 10:48 ET Workstation ID: [id number] Transcribed By: Self Edit Transcribed Date: 10/08/2024 10:20 ET Narrative 10/08/2024 10:48 AM EDT Bilateral screening mammogram. CLINICAL: 54 years old, Female, routine annual exam. COMPARISON: Prior mammograms, latest from 09/24/2023. ?? TECHNIQUE: Bilateral MLO and CC views were obtained digitally with 2 D C views and 3-D mammogram (digital breast tomosynthesis). Computer-aided detection was utilized in evaluation of this exam (CAD). FINDINGS: There is focal asymmetry in the left upper outer breast, anterior 3rd. No worrisome calcifications are evident. ??Additional evaluation is recommended with spot compression views in CC and ??MLO projection as well as full field straight lateral view with 2-D C. views and Tomosynthesis. ??Ultrasound would also be needed. ??Level contacting the patient for the arrangements. BREAST DENSITY: C - The breasts are heterogeneously dense which may obscure small masses. Procedure Note Zari Cox MD - 10/08/2024 Bilateral screening mammogram. CLINICAL: 54 years old, Female, routine annual exam. COMPARISON: Prior mammograms, latest from 09/24/2023. TECHNIQUE: Bilateral MLO and CC views were obtained digitally with 2 D Cviews and 3-D mammogram (digital breast tomosynthesis). Computer-aideddetection was utilized in evaluation of this exam (CAD). FINDINGS: There is focal asymmetry in the left upper outer breast, anterior 3rd. No worrisome calcifications are evident. Additional evaluation isrecommended with spot compression views in CC and MLO projection as wellas full field straight lateral view with 2-D C. views and Tomosynthesis.Ultrasound would also be needed. Level contacting the patient for thearrangements. BREAST DENSITY: C - The breasts are heterogeneously dense which mayobscure small masses. IMPRESSION: Asymmetric opacity in the left upper outer breast, anterior 3rd.Additional evaluation is recommended. BI-RADS CATEGORY: 0 - INCOMPLETE - NEED ADDITIONAL IMAGING EVALUATION RECOMMENDATION: Additional left breast imaging recommended. Ultrasound is recommended forthe Left Breast. Mammo Location: [facility], [address] [place] [address], [id number], . -------- FINAL REPORT -------- Dictated By: Zari Cox Dictated Date: 10/08/2024 10:20 ET Assigned Physician: Zari Cox Reviewed and Electronically Signed By: Zari Cox Signed Date: 10/08/2024 10:48 ET Workstation ID: [id number] Transcribed By: Self Edit Transcribed Date: 10/08/2024 10:20 ET Sofia Elmore CNM IMG BI PROCEDURES Final Res ult * External Colonoscopy Report (07/21/2024 4:19 PM EST) Anatomical Region Laterality Modality Endoscopy us Historical Provider GI~PROCEDURE ORDERABLES F inal Result * Annual BMP Blood Test (10/08/2023) Annual BMP Blood Test abstracted Historical Provider HEALTH MAINTENANCE Final Result * HIV Screening (04/11/2022) HIV Screening abstracted Historical Provider HEALTH MAINTENANCE Final Result * Pap smear (01/21/2018) 01/21/2018 Narrative HISTORICAL TESTING LAB RESULTING AGENCY - 01/24/2018 10:50 AM EDT [id number] THINPREP PAP, IMAGED: NEGATIVE FOR SQUAMOUS INTRAEPITHELIAL LESION AND MALIGNANCY ??. RESULT OF APTIMA HIGH RISK HPV ASSAY: ? NEGATIVE ?? (SEROTYPES 16,18,31,33,35,39,45,51,52,56,58,59,66,68) ELKE MOREIRA(ASCP) (CASE ELECTRONICALLY SIGNED 01 24 2018) ADEQUACY: SATISFACTORY. ENDOCERVICAL/TRANSFORMATION ZONE COMPONENT PRESENT. SOURCE: THINPREP PAP HPV ANY DX: ??REFLEX 16 AND 18, CERVICAL, IMAGED: CLINICAL INFORMATION: HPV ANY DIAGNOSIS. 

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
--- OUTSIDE RECORDS SUMMARY | 2024-11-10 08:36 | XMS_ITS | Clinical Summary ---
Author Organization [facility] Address [address] [place] [address] Care Team Providers Care Clipper Machine Operator Name Role Phone Geoffrey Payne MD Primary Care Provider [phone] Allergies Active Allergy Reactions Criticality Noted Date Comments Amlodipine Other (See Comments) 03/13/2022 Per pt had excessive swelling and got [...] and got blood clot on leg Azithromycin Other (See Comments),Rash/Dermat itis Low 01/29/2015 Other reaction(s): Other (see comments), Other (See [...] reaction(s): Gastritis, Other (see comments) Bee Venom Anaphylaxis High 01/29/2015 anaphylaxis Copper Anaphylaxis High 01/29/2015 Cyclosporine Unknown/Patient and Family Unable to Define Medium 12/15/2022 Erythromycin Other (See Comments),Rash/Dermat itis Low 09/07/2005 Other reaction(s): Other (see comments), Other (See Comments) Other reaction(s): Other (see comments), Other (See Comments) Other reaction(s): Other (see comments), Other (See Comments) Other reaction(s): Other (see comments), Other (See Comments) Other reaction(s): Other (see comments), Other (See Comments) Other reaction(s): Other (see comments), Other (See Comments) Gabapentin Other (See Comments) 07/03/2019 Other reaction(s): Other (see comments) Other reaction(s): Other (see comments) Levofloxacin Other (See Comments) 07/03/2019 Other reaction(s): Other (see comments) Other reaction(s): Other (see comments) Lidocaine Other (See Comments) 03/13/2022 Other reaction(s): lung pain Other reaction(s): lung pain Other reaction(s): lung pain Other reaction(s): lung pain Other reaction(s): lung pain Nickel Other (See Comments) 01/29/2015 Other reaction(s): Other (see comments), Other (See [...] reaction(s): Other (see comments) Skin Irritation Pantoprazole Other (See Comments) 10/29/2015 Other reaction(s): Other (see comments), Other (See [...] reaction(s): Other (see comments) GI problems Ranitidine Other (See Comments),Myalgia/Yoshi sitis/Arthralgia/Arth ritis Low 10/29/2015 Other reaction(s): Dizzy spells, Joint pain, Other (see comments), Other (See Comments) Other reaction(s): Dizzy spells, Joint pain GI pain, vision problems, Other reaction(s): Dizzy spells, Joint pain GI pain, vision problems, Other reaction(s): Dizzy spells, Joint pain, Other (see comments), Other (See Comments) Other reaction(s): Dizzy spells, Joint pain GI pain, vision problems, Sulfa Antibiotics Other (See Comments) 03/09/20 06 sulfa eye drops Corneal issues Other reaction(s): Other (see comments) Other reaction(s): Other (see comments) sulfa eye drops Tuberculin Purified Protein Derivative Unknown/Patient and Family Unable to Define Medium 10/12/2017 Anaphylactic reaction; aplisol type Zolpidem Nausea And Vomiting,Other (See Comments),Unknown/Pat ient and Family Unable to Define High 01/29/2015 Other reaction(s): Other (see comments), Other (See [...] comments) Passed out & vomited uncontroably Medications valACYclovir (VALTREX) 1000 MG tablet Take 1 tablet (1,000 mg total) by mouth. 07/12/202 2 Active triamcinolone (KENALOG) 0.1 % ointment Comments: Patient Notes: (Kenalog) Apply to affected area 2 times daily for no more than 2 weeks, then only using on the weekends PRN Active tiZANidine (ZANAFLEX) 2 MG tablet Take 1 tablet (2 mg total) by mouth. 3 Active sertraline (ZOLOFT) 25 MG tablet Take 1 tablet (25 mg total) by mouth. 3 Active Scopolamine Base (SCOPOLAMINE TD) Apply topically. 2 Active propranolol (INDERAL) 10 MG tablet Take 10 mg by mouth. 3 Active proMETHAZINE (PHENERGAN) 25 MG tablet TAKE 1 TABLET BY MOUTH EVERY 6 HOURS NEEDED FOR NAUSEA OR VOMITING 3 Active PHENobarbital- hyoscyamine-at ropine-scopola mine () elixir Take by mouth. Activ e ondansetron (ZOFRAN) 4 MG tablet TAKE 1 TABLET BY MOUTH EVERY 12 HOURS NEEDED FOR NAUSEA 3 Active OMEprazole (PriLOSEC) 20 MG capsule Take 1 capsule (20 mg total) by mouth. Active All Day Relief 220 MG tablet Take 1 tablet (220 mg total) by mouth 2 times daily (every 12 hours) as needed. for pain 3 Active naproxen sodium (ALEVE) 220 mg tablet Take 1 capsule by mouth. 3 Active methylPREDNISo lone (MEDROL DOSEPAK) 4 MG tablet TAKE 6 TABLETS ON DAY 1 DIRECTED ON PACKAGE AND DECREASE BY 1 TAB EACH DAY FOR A TOTAL OF 6 DAYS 3 Active methimazole (TAPAZOLE) 5 MG tablet TAKE 1.5 TABLETS BY MOUTH DAILY FOR 90 DAYS 3 Active LORazepam (ATIVAN) 1 MG tablet Take 1 tablet by mouth about 45 minutes before MRI. May repeat dose once only immediately before the MRI, if needed. 3 Active lidocaine (XYLOCAINE) 2 % solution 5 mL by Other (specify) route. Active Lidocaine Pain Relief 4 % patch APPLY 1 PATCH TOPICALLY TO THE SKIN DAILY FOR 5 DAYS NEEDED FOR PAIN 3 Active lidocaine (LIDODERM) 5 % patch APPLY 1 PATCH TOPICALLY DAILY NEEDED FOR MODERATE PAIN 3 Active latanoprost (XALATAN) 0.005 % ophthalmic solution INSTILL 1 DROP INTO THE LEFT EYE NIGHTLY. 3 Active ketorolac (TORADOL) 30 MG/ML injection Comments: Patient Notes: Inject 1mL IM ? frequency Active ibuprofen (MOTRIN) 800 mg tablet Take 1 tablet (800 mg total) by mouth. 2 Active HYDROcodone-ac etaminophen (NORCO) 5-325 mg per tablet Take 1 tablet by mouth. Active hydroCHLOROthi azide (MICROZIDE) 12.5 MG capsule Take 1 capsule (12.5 mg total) by mouth daily. 3 Active famotidine (PEPCID) 20 MG tablet Take 1 tablet (20 mg total) by mouth. 2 Active EPINEPHrine 0.3 mg/0.3 mL IJ auto-injection INJECT 0.3 MG INTO THE MUSCLE NEEDED FOR ANAPHYLACTIC REACTION 2 Active dicyclomine (BENTYL) 10 MG capsule TAKE 1 CAPSULE BY MOUTH FOUR TIMES DAILY BEFORE MEALS AND AT BEDTIME FOR ABDOMINAL PAIN 2 Active diclofenac (VOLTAREN) 1 % gel 3 Active diazepam (VALIUM) 2 MG tablet TAKE 1 TABLET BY MOUTH DAILY AT BEDTIME FOR 14 DAYS 3 Active desipramine (NORPRAMIN) 25 MG tablet 3 Active cyclobenzaprin e (FLEXERIL) 5 MG tablet TAKE 1 TABLET BY MOUTH DAILY AT BEDTIME NEEDED FOR BACK PAIN OR SPASM 3 Active cetirizine (ZyrTEC) 10 MG tablet Take 1 tablet (10 mg total) by mouth. Active Calcium 600-10 MG-MCG Chew Tab Chew 2 tablets. Acti ve butalbital-cortes taminophen-caf feine (FioriCET, ESGIC) 50-325-40 mg tablet Take 1 tablet by mouth. Active vitamin B complex (b complex vitamins) capsule Take by mouth. Activ e amLODIPine (NORVASC) 5 MG tablet Take 1 tablet (5 mg total) by mouth every 24 hours. Active amitriptyline (ELAVIL) 10 MG tablet Take 1 tablet (10 mg total) by mouth nightly. 3 Active Acetaminophen Extra Strength 500 MG tablet TAKE 1 TABLET BY MOUTH EVERY 4 HOURS NEEDED FOR MILD PAIN 3 Active methimazole (TAPAZOLE) 5 MG tablet Take 1 tablet (5 mg total) by mouth. 4 Active butalbital-cortes taminophen-caf feine (Fioricet) 50-300-40 mg Cap capsule 1 capsule as needed Orally every 4 hrs Active traMADol (ULTRAM) 50 MG tablet TAKE 1 TABLET BY MOUTH TWICE A DAY NEEDED FOR PAIN FOR 10 DAYS (MAX 7 DAYS PER INS) 4 Active timolol (BLOCADREN) 10 MG tablet 1 tablet with food Orally Twice a day Active timolol (TIMOPTIC) 0.5 % ophthalmic solution Apply 1 drop to eye. 4 Active timolol (TIMOPTIC) 0.5 % ophthalmic solution INSTILL 1 DROP INTO BOTH EYES EVERY DAY 4 Active Selenium 200 MCG Cap 1 capsule. Active pregabalin (LYRICA) 75 MG capsule TAKE 1 CAPSULE ORALLY 2 TIMES A DAY FOR PAIN FOR 30 DAYS 4 Active predniSONE (DELTASONE) 10 MG tablet 1 tablet Orally Once a day Active Paxlovid, 300/100, therapy pack TAKE 3 TABLETS BY MOUTH TWICE A DAY FOR 5 DAYS 4 Active naloxone (NARCAN) 4 mg/0.1 mL Liquid nasal spray device ADMINISTER 1 SPRAY INTO ONE NOSTRIL NEEDED. CALL 911. REPEAT AFTER 2-3 MIN IF NO/MINIMAL RESPONSE 4 Active lidocaine (LIDODERM) 5 % patch Apply 1 patch topically. 4 Active ketotifen (ZADITOR) 0.035% ophthalmic solution Apply 1 drop to eye. 4 Active indapamide (LOZOL) 1.25 MG tablet Take 1 tablet (1.25 mg total) by mouth. 4 Active indapamide (LOZOL) 1.25 MG tablet 4 Active fluorometholon e (FML LIQUIFILM) 0.1 % ophthalmic suspension SHAKE LIQUID AND INSTILL 1 DROP IN BOTH EYES THREE TIMES DAILY FOR 14 DAYS 4 Active Blood Pressure Monitoring (Blood Pressure Monitor 3) Device See Instructions, # 1 Unknown, Refills 0, Tot. Refills 0, Maintenance, Large Cuff Use to test blood pressure 1 daily I10 (Hypertension), 08/22/23 11:12:00 EST, Supply, 156, cm, 08/16/23 12:47:00 EST, Height, 106.7, kg, 07/13/23 9:53:00 EST, Dry Weight 4 Active diclofenac (ZORVOLAX) 18 MG capsule Diclofenac Active Timolol-Brimon -Dorzol-Latano pr 0.5-0.15-2 -0.005% Solution Take by mouth. 4 Active cyclobenzaprin e (FLEXERIL) 5 MG tablet Take 1 tablet (5 mg total) by mouth. 4 Active cyclobenzaprin e (FLEXERIL) 10 MG tablet 1 tablet at bedtime as needed Orally Once a day Active diclofenac (CATAFLAM) 50 MG tablet Take 1 tablet (50 mg total) by mouth. 4 Active diclofenac (CATAFLAM) 50 MG tablet Take 1 tablet (50 mg total) by mouth 2 (two) times a day as needed. Moderate Pain. 4 Active diclofenac (VOLTAREN) 1 % gel Apply topically. 4 Active DULoxetine (CYMBALTA) 30 MG capsule PLEASE SEE ATTACHED FOR DETAILED DIRECTIONS 4 Active EPINEPHrine (ADRENALIN) 1 mg/mL Solution injection as directed Injection Active famotidine (PEPCID) 40 MG/4ML Solution injection 2 mL Intravenous Twice a day Active diazepam (VALIUM) 2 MG tablet Take 1 tablet (2 mg total) by mouth. 4 Active metFORMIN (GLUCOPHAGE-XR ) 500 MG 24 hr tabletIndicati ons:Unintended weight gain,Obesity, Class III, BMI 40-49.9 (morbid obesity) ([facility]) Take 1 tablet (500 mg total) by mouth every morning with breakfast. 30 tablet 4 Active Insulin Pen Needle 32G X 4 MM MiscIndication s:Obesity, Class III, BMI 40-49.9 (morbid obesity) (HCC),Pre-diab etes To use daily with pen device 100 pen needle 1 4 Active indapamide (LOZOL) 2.5 MG tablet 5 Active tirzepatide (MOUNJARO) 2.5 mg/0.5 mL pen-injectorIn dications:Type 2 diabetes mellitus with obesity (HCC) Inject 1 Pen (2.5 mg total) under the skin once a week. 2 mL 2 5 Active liraglutide -weight management (SAXENDA) 18 MG/3ML prefilled pen injectionIndic ations:Obesity , Class III, BMI 40-49.9 (morbid obesity) ([facility]),Pre-diab etes Week 1: inject 0.6 mg under the skin daily x 1 week Week 2: inject 1.2 mg under the skin daily x 1 week Week 3: inject 1.8 mg under the skin daily x 1 week Week 4: inject 2.4 mg under the skin daily x 1 week Week 5: inject 3.0 mg under the skin daily for maintenance 15 mL 2 4 025 Discontin ued(Thera py completed ) Active Problems No known active problems Encounters Date Type Department Care Team Description 10/28/2024 Telephone [facility] [address] [phone] Indira Duran, caul puller Only 10/17/2024 Telephone [facility] [address] [phone] Indira Duran, RN 10/14/2024 4:00 PM EDT Office Visit [facility] [address] [phone] Lenore De La Torre APRN Obesity, Class III, BMI 40-49.9 (morbid obesity) ([facility]) (Primary Dx); Type 2 diabetes mellitus with obesity ([facility]) 10/14/2024 Travel from Last 3 Months Family History Medical History Relation Name Comments Heart disease Brother 1 Hypertension Brother 1 Diabetes Brother 2 Hypertension Brother 2 Diabetes Father Hypertension Father Heart disease Mother Diabetes Sister Heart disease Sister Hypertension Sister Relation Name Status Comments Brother 1 Brother 2 Alive Father Mother Sister Social History Tobacco Use Types Packs/Day Years Used Date Smoking Tobacco: Never Smokeless Tobacco: Never Alcohol Use Standard Drinks/Week Comments Yes 0 (1 standard drink = 0.6 oz pur e alcohol) SOCIAL Citizen Of [place] [employer] - Occupational Stress Questionnaire Answer Date Recorded Do you feel stress - tense, restless, nervous, or anxious, or unable to sleep at night because your mind is troubled all the time - these days? To some extent 05/26/2024 Physical Activity Answer Date Recorded On average, how many days pe r week do you engage in moderate to strenuous exercise (like a brisk walk)? 4 days 05/26/2024 On average, how many minutes do you exercise per day at this level? 40 min 05/26/2024 Comments Unknown Sex and Gender Information Value Date Recorded Sex Assigned at Female 04/05/2023 9:51 AM EDT Legal Sex Female 2:19 PM EDT Gender Identity Female 07/13/2023 2:56 PM EST Sexual Orientation Heterosexual (straight) 07/13 2:56 PM EST Last Filed Vital Signs Vital Sign Reading Time Taken Comments Blood Pressure 136/82 10/14/2024 4:06 PM EDT Pulse 67 10/14/2024 4:06 PM EDT Temperature 36.3 ??C (97.3 ??F) 07/13/2023 2:34 PM ES T Respiratory Rate 16 07/18/2023 9:04 AM EST Oxygen Saturation 100% 07/13/2023 2:34 PM EST Inhaled Oxygen Concentration - - Weight 105 kg (230 lb 9.6 oz) 10/14/2024 4:06 PM EDT Height 154.9 cm (5' 1 ) 10/14/2024 4:06 PM EDT Body Mass Index 43.57 10/14/2024 4:06 PM EDT Plan of Treatment Upcoming Encounters Date Type Department Care Team (Late st Contact Info) Description 01/06/2025 8:00 AM EDT [facility] visit [facility] [address] [place] [id number] Alexis Lawton MD [address] [facility] [address] [place] [address] 03/05/2025 8:20 AM EDT Office Visit [facility] [place] [address] [facility] [address] [place] [phone] Lenore De La Torre APRN [address] [facility] [address] [place] [phone] Health Maintenance Due Date Last Done Comments Hepatitis C Virus Screening 1971 HIV Screening 09/12/1984 DTaP/Tdap/Td Vaccines (1 - Tdap) 09/12/1990 Hepatitis B Vaccines (1 of 3 - 19+ 3-dose series) 08/30 Pap Smear (Ages 21-65) 09/12/1992 Mammogram 2011 Colonoscopy 09/12/2016 Pneumococcal Vaccines 50+ (1 of 1 - PCV) 09/12/2021 Zoster (Shingles) Vaccine (1 of 2) 09/12/2021 COVID-19 Vaccine ( - season) 2024 Influenza Vaccine 01/30/2025 04/22/2017 Insurance [facility] [place] Advance Directives Documents on File Type Date Recorded 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
--- OUTSIDE RECORDS SUMMARY | 2024-11-10 08:36 | XMS_ITS | Clinical Summary ---
Author Organization [facility] Facility Address [address] [place] [id number] Care Team Providers Care Foot Tender Name Role Phone Unavailable Primary Care Provider Unavailabl e Allergies Active Allergy Reactions Criticality Noted Date Comments Azithromycin Other (see comments) 07/03/2019 Bee Venom Anaphylaxis High 07/03/2019 Copper Anaphylaxis High 07/03/2019 Erythromycin Other (see comments) 07/03/2019 Gabapentin Other (see comments) 07/03/2019 Levofloxacin Other (see comments) 07/03/2019 Nickel Other (see comments) 07/03/2019 Pantoprazole Other (see comments) 07/03/2019 Sulfa Antibiotics Other (see comments) 07/03/19 20 Ranitidine Hcl Other (see comments) 07/03/2019 Zolpidem Other (see comments) 07/03/2019 Medications B Complex Vitamins (B-COMPLEX/B-12 PO) Take 1 tablet by mouth 1 (one) time each day Active Calcium Carb-Cholecalci ferol (CALCIUM 600 + D PO) Take 2 tablets by mouth 1 (one) time each day Active cetirizine (ZyrTEC) 10 MG tablet Take 1 tablet by mouth 1 (one) time each day Active Multiple Vitamins-Minera ls (MULTIVITAMIN ADULT PO) Take 1 tablet by mouth 1 (one) time each day Active amLODIPine (NORVASC) 5 MG tablet Take 1 tablet by mouth at bed time Active diazePAM (VALIUM) 2 MG tablet Take 1 tablet by mouth 3 (three) times a day Active EPINEPHrine (EPIPEN) 0.3 MG/0.3ML injection syringe Comments: Patient Notes: Use as directed Active HYDROcodone-cortes taminophen (NORCO) 5-325 MG per tablet Take 1 tablet by mouth 4 (four) times a day Active lidocaine (LIDODERM) 5 % patch Apply 1 patch topically 1 (one) time each day Active Lidocaine HCl (LIDOCAINE VISCOUS HCL) 2 % solution 5 mL by Other route 1 (one) time each day Active PHENobarbital-h yoscyamine-atro pine-scopoloami ne () 16.2 MG/5ML elixir Comments: Patient Notes: 2 tsp BID, use as directed Active promethazine (PHENERGAN) 25 MG tablet Take 1 tablet by mouth 3 (three) times a day Active triamcinolone (KENALOG) 0.1 % ointment Comments: Patient Notes: (Kenalog) Apply to affected area 2 times daily for no more than 2 weeks, then only using on the weekends PRN Active ibuprofen (ADVIL,MOTRIN) 400 MG tablet 0 Active ketorolac (TORADOL) 30 MG/ML injection Comments: Patient Notes: Inject 1mL IM ? frequency Active nortriptyline (PAMELOR) 10 MG capsule 9 Active ondansetron (ZOFRAN) 4 MG tablet 0 Active Active Problems Problem Noted Date Diagnosed Date Anemia 07/03/2019 Blood in urine 07/03/2019 Essential hypertension 07/03/2019 Renal stone 07/03/2019 Immunizations Immunization Administration Dates Next Due Hepatitis B 07/12/2006,02/09/2006,01/08/2006 Influenza TIV (IM) 04/22/2017 Td 07/02/1998 Tdap 01/22/2015 Family History Medical History Relation Comments Diabetes Father Relation Status Comments Father Social History Tobacco Use Types Packs/Day Years Used Date Smoking Tobacco: Never Alcohol Use Standard Drinks/Week Comments Yes 0 (1 standard drink = 0.6 oz pure alcohol) Alcoholic Drinks/day: Occasional social drink Comments Unknown Sex and Gender Information Value Date Recorded Sex Assigned at Not on file Legal Sex Female 4:30 PM EST Gender Identity Not on file Sexual Orientation Not on file Last Filed Vital Signs Vital Sign Reading Time Taken Comments Blood Pressure 142/83 09/10/2019 3:21 PM EDT Pulse 127 09/10/2019 3:21 PM EDT Temperature - - Respiratory Rate - - Oxygen Saturation 98% 09/10/2019 3:21 PM EDT Inhaled Oxygen Concentration - - Weight 89.8 kg (198 lb) 09/10/2019 3:21 PM EDT Height 154.9 cm (5' 1 ) 09/10/2019 3:21 PM EDT Body Mass Index 37.41 09/10/2019 3:21 PM EDT Plan of Treatment Health Maintenance Due Date Last Done Comments Breast Cancer Screening 1970 Hepatitis B Vaccine (1 of 3 - 19+ 3-dose series) 09/12/1990 07/12/2006, 02/09/2006, 01/08/2006 Colorectal Cancer Screening: Annual FOBT 09/12/2020 Colorectal Cancer Screening: Colonoscopy 09/12/2020 Colorectal Cancer Screening: Sigmoidoscopy 09/12/2020 Pneumococcal Vaccine: 50+ Ye ars (1 of 1 - PCV) 09/12/2021 Influenza Vaccine (Season Ended) 2025 04/22/20 17 Insurance [facility]
--- OUTSIDE RECORDS SUMMARY | 2024-11-10 08:36 | XMS_ITS ---
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 Name Role Phone SHAWN STROUD Unavailable [phone] MEDICATIONS Medication SIG (Take, Route, Fr equency, Duration) Notes Start Date End Date Status Mounjaro 2.5 MG/0.5ML 2.5mg Subcutaneous weekly for 30 days Active Encounters Encounter Location Date Provider Diagnosis [place] [id number] [address] 12/05/2023 SHAWN STROUD Morbid obesity due t o excess calories E66.01 ; BMI 40.0-44.9, adult Z68.41 ; Dietary counseling and surveillance Z71.3 ; Type 2 diabetes mellitus without complication, without long-term current use of insulin E11.9 ; Graves' disease E05.00 and Essential (primary) hypertension I10 ASSESSMENTS Encounter Date Diagnosis Assessment Notes Treatment Notes Treatment Clinical Notes Section Notes 12/05/2023 Morbid obesity due to excess calories (ICD-10 - E66.01) #Weight Management 12/05/2023 Total time spent today was 30 minutes of which greater than 50% was spent on coordinating and counseling Patient has been found to be obese with a BMI of (44). Patient has class (3) obesity. We are a board certified obesity and weight management practice Patient has trialed behavioral modification, dietary restrictions and exercise for a minimum of 6 months The most recent [place] [employer] of clinical endocrinologists and [place] [employer]in[employer] guidelines recommend patients who have overweight BMI or obesity BMI, who also have metabolic syndrome, prediabetes, HLD, and other comorbidities or at risk of developing type 2 diabetes should aim for a weight loss goal of at least 10% of the baseline body weight Patient counseled regarding effects of GLP/GIP-1 agonists, and other FDA approved wgt loss meds with regards to a multifactorial approach of weight loss as mentioned above and not solely appetite suppression. We have discussed the mechanism of GLP-1's/GIP, dual incretins I think this would be fantastic option for her given her metabolic workup and body composition We have discussed the risks and benefits and side effects including/and not limited to Sarcopenia, intestinal obstruction, constipation, nausea, lethargy, headache Discussed importance of protein consumption for muscle maintenance as well as strength and resistance training ,probiotics, B12 complex biotin , iron and other nutrients, To help avoid telogen effluvium There is no history of medullary thyroid cancer or multiple endocrine neoplasia There is also no history of cardiovascular disease, hypertension, palpitations, or arrhythmias In the setting of potential stimulant/amphetami ne use such as phentermine We have also discussed risks and benefits, and the use of compounded medications to help offset the national shortages as well as financial implications vs trade name drugs GLP must be discontinued upon initiation We have discussed the lifelong requirement of nutritional supplementation And adherence to an exercise regimen as well as importance We did discuss the neurohormonal changes that are occurring with these medications and Need for long-term Continued usage The patient understands and agrees Patient was reassured and welcomed to the practice. We discussed that we stress a hollistic medical approach with emphasis on lifestyle modification. Patient was informed that a healthy lifestyle with exercise and good eating habits can help reduce his risk of medical complications. He is explained that obesity increases his risk of diabetes, cardiovascular disease, or organ damage. We spent a lot of time discussing the relationship between food, exercise, sleep, mental health and obesity. Patient was counseled on the importance EATING local, organic food when possible. Patient was educated on clean 15 and dirty dozen. I provided information about reading books called The Food Rules by David Maguire and Eat Fat Get Lean by Dr Rocco Dixon. Self education is important in the journey for weight management. Patient was offered diagnostic testing. We want to measure visceral adiposity, advanced body composition, adverse lipids, fatty acid balance, risk for heart disease and atherosclerosis, markers of inflammation and genetic susceptibility. Patient was counseled on weight management and was advised to lose weight using A. Meal Replacement Products We discussed the lifelong requirement of nutritional supplementation and adherence to an exercise regimen as well as importance of dietary f/u Patient was educated on the replacement products called optifast. This is a good way of taking fixed amount of calories. It has been shown in studies to be ineffective weight management tool. We also recommend maintaining adequate protein intake and muscle composition, 1.5mg/kg This however has to be coupled with lifestyle intervention as well as laboratory data and EKG monitoring. It is impossible to know how a person will tolerate complete meal replacement. The side effects of meal replacement and weight loss could include syncopal attacks, dizziness, gallstones, potential cholecystectomy, possible heart attack and even . The benefits of meal replacement would be potential weight loss but no guarantees can be made. Meal replacement products are not covered by insurance. Once the patient has bought these products we cannot return them B. Lifestyle management which includes several strategies as below 1. Eat a low carbohydrate good fat good protein diet. Eliminate refined carbohydrates from the diet. Continue blood sugar and sugared beverages. Eat local organic when possible. Cook your own meals. Read food labels. None about healthy snacks. Portion control and food with low glycemic index 2. Exercise regularly. Try to get at least 6000 steps a day. Use a predominant to track activity level. Consider using apps like Skaffl, [employer]cer[employer], lose it, stick as needed for self-monitoring and weight management. Consider group exercises. Consider hiring a personal care worker. Regular exercise is marcos to sustainable health and prevents as a buffer against weight regain 3. Sleep is most important for healing. Tried to sleep at least 8 hours a night. A good quality sleep needs a sleep ritual with ideal room temperature of around 68. It might help to take a shower and have no electronics in the room and sleep in a very dark room without artificial light. Start her sleep routine and get up early in the morning and go to bed on time 4. Make a social connection. Surround yourself with positive people with positive energy. Connect with friends and family. 5. Get into the habit of meditating and mindfulness while doing everything. 6. Go outside and connect with nature. C. Prescription medications Patient was educated on the use of prescription medications for medical weight loss. This is a growing list and includes phentermine, Topamax,Qsymia, contrave, belviq and saxenda, wegovy All prescription medications could have side effects including but not limited to kidney stones, seizure disorder cardiac arrhythmias heart attack pancreatitis etc. etc.. Patient was encouraged to read the prescription insert and have coaching with their pharmacist and make an informed decision about taking medication and know that these medications are being prescribed with good intentions and we do not know how a patient would react to her medication. Sudden medications are FDA approved for weight loss and there is also off label use depending on patient's inability to afford medications in an attempt to lose weight D. Behavioral counseling was done to establish a relationship between food and an mood. Patient was provided information about local counseling and psychiatry and Dr Tavarez at [facility]. We would like to cover regular topics and build on low glycemic eating exercise mindful eating, using yoga and meditation along with deep breathing and connecting with friends and family. E. MASS PAT reviewed, Patient's current medications were reviewed and opinion was given on medication that can cause weight gain and can be substituted F. Patient was assessed for risk with obesity including and not limiting to atherosclerosis heart disease stroke kidney disease, restrictive lung disease, irritable bowel syndrome and overall mortality. Risk of developing prediabetes diabetes and metabolic syndrome was discussed G. Therapeutic plan: We have decided to make therapeutic plan which would include choosing wisely on calories restricting portion getting active, tracking weight, getting good quality sleep and working on time management H. Patient will follow up in (4) weeks for weight management Of note, some information is being carried forward from prior records for informational purposes only and is being cited so that efficiency, safety and quality of the patient's care is not compromised This note was prepared using voice recognition software and direct typing Please excuse inadvertent novelty printing machine operator or typing errors, or uncorrected word substitutions Although every attempt has been made by the provider to proofread this document, occasional misspellings and typographical errors may still be present Due to the previous pandemic, and the use of personal protective equipment (PPE) This may decrease voice recognition accuracy Inadvertent novelty printing machine operator errors may occur 12/05/2023 BMI 40.0-44.9, adult (ICD-10 - Z68.41) #Weight Management 12/05/2023 Total time spent today was 30 minutes of which greater than 50% was spent on coordinating and counseling Patient has been found to be obese with a BMI of (44). Patient has class (3) obesity. We are a board certified obesity and weight management practice Patient has trialed behavioral modification, dietary restrictions and exercise for a minimum of 6 months The most recent [place] [employer] of clinical endocrinologists and [place] [employer]in[employer] guidelines recommend patients who have overweight BMI or obesity BMI, who also have metabolic syndrome, prediabetes, HLD, and other comorbidities or at risk of developing type 2 diabetes should aim for a weight loss goal of at least 10% of the baseline body weight Patient counseled regarding effects of GLP/GIP-1 agonists, and other FDA approved wgt loss meds with regards to a multifactorial approach of weight loss as mentioned above and not solely appetite suppression. We have discussed the mechanism of GLP-1's/GIP, dual incretins I think this would be fantastic option for her given her metabolic workup and body composition We have discussed the risks and benefits and side effects including/and not limited to Sarcopenia, intestinal obstruction, constipation, nausea, lethargy, headache Discussed importance of protein consumption for muscle maintenance as well as strength and resistance training ,probiotics, B12 complex biotin , iron and other nutrients, To help avoid telogen effluvium There is no history of medullary thyroid cancer or multiple endocrine neoplasia There is also no history of cardiovascular disease, hypertension, palpitations, or arrhythmias In the setting of potential stimulant/amphetami ne use such as phentermine We have also discussed risks and benefits, and the use of compounded medications to help offset the national shortages as well as financial implications vs trade name drugs GLP must be discontinued upon initiation We have discussed the lifelong requirement of nutritional supplementation And adherence to an exercise regimen as well as importance We did discuss the neurohormonal changes that are occurring with these medications and Need for long-term Continued usage The patient understands and agrees Patient was reassured and welcomed to the practice. We discussed that we stress a hollistic medical approach with emphasis on lifestyle modification. Patient was informed that a healthy lifestyle with exercise and good eating habits can help reduce his risk of medical complications. He is explained that obesity increases his risk of diabetes, cardiovascular disease, or organ damage. We spent a lot of time discussing the relationship between food, exercise, sleep, mental health and obesity. Patient was counseled on the importance EATING local, organic food when possible. Patient was educated on clean 15 and dirty dozen. I provided information about reading books called The Food Rules by David Maguire and Eat Fat Get Lean by Dr Rocco Dixon. Self education is important in the journey for weight management. Patient was offered diagnostic testing. We want to measure visceral adiposity, advanced body composition, adverse lipids, fatty acid balance, risk for heart disease and atherosclerosis, markers of inflammation and genetic susceptibility. Patient was counseled on weight management and was advised to lose weight using A. Meal Replacement Products We discussed the lifelong requirement of nutritional supplementation and adherence to an exercise regimen as well as importance of dietary f/u Patient was educated on the replacement products called optifast. This is a good way of taking fixed amount of calories. It has been shown in studies to be ineffective weight management tool. We also recommend maintaining adequate protein intake and muscle composition, 1.5mg/kg This however has to be coupled with lifestyle intervention as well as laboratory data and EKG monitoring. It is impossible to know how a person will tolerate complete meal replacement. The side effects of meal replacement and weight loss could include syncopal attacks, dizziness, gallstones, potential cholecystectomy, possible heart attack and even . The benefits of meal replacement would be potential weight loss but no guarantees can be made. Meal replacement products are not covered by insurance. Once the patient has bought these products we cannot return them B. Lifestyle management which includes several strategies as below 1. Eat a low carbohydrate good fat good protein diet. Eliminate refined carbohydrates from the diet. Continue blood sugar and sugared beverages. Eat local organic when possible. Cook your own meals. Read food labels. None about healthy snacks. Portion control and food with low glycemic index 2. Exercise regularly. Try to get at least 6000 steps a day. Use a predominant to track activity level. Consider using apps like Skaffl, [employer], lose it, stick as needed for self-monitoring and weight management. Consider group exercises. Consider hiring a personal care worker. Regular exercise is marcos to sustainable health and prevents as a buffer against weight regain 3. Sleep is most important for healing. Tried to sleep at least 8 hours a night. A good quality sleep needs a sleep ritual with ideal room temperature of around 68. It might help to take a shower and have no electronics in the room and sleep in a very dark room without artificial light. Start her sleep routine and get up early in the morning and go to bed on time 4. Make a social connection. Surround yourself with positive people with positive energy. Connect with friends and family. 5. Get into the habit of meditating and mindfulness while doing everything. 6. Go outside and connect with nature. C. Prescription medications Patient was educated on the use of prescription medications for medical weight loss. This is a growing list and includes phentermine, Topamax,Qsymia, contrave, belviq and saxenda, wegovy All prescription medications could have side effects including but not limited to kidney stones, seizure disorder cardiac arrhythmias heart attack pancreatitis etc. etc.. Patient was encouraged to read the prescription insert and have coaching with their pharmacist and make an informed decision about taking medication and know that these medications are being prescribed with good intentions and we do not know how a patient would react to her medication. Sudden medications are FDA approved for weight loss and there is also off label use depending on patient's inability to afford medications in an attempt to lose weight D. Behavioral counseling was done to establish a relationship between food and an mood. Patient was provided information about local counseling and psychiatry and Dr Tavarez at [facility]. We would like to cover regular topics and build on low glycemic eating exercise mindful eating, using yoga and meditation along with deep breathing and connecting with friends and family. E. MASS PAT reviewed, Patient's current medications were reviewed and opinion was given on medication that can cause weight gain and can be substituted F. Patient was assessed for risk with obesity including and not limiting to atherosclerosis heart disease stroke kidney disease, restrictive lung disease, irritable bowel syndrome and overall mortality. Risk of developing prediabetes diabetes and metabolic syndrome was discussed G. Therapeutic plan: We have decided to make therapeutic plan which would include choosing wisely on calories restricting portion getting active, tracking weight, getting good quality sleep and working on time management H. Patient will follow up in (4) weeks for weight management Of note, some information is being carried forward from prior records for informational purposes only and is being cited so that efficiency, safety and quality of the patient's care is not compromised This note was prepared using voice recognition software and direct typing Please excuse inadvertent novelty printing machine operator or typing errors, or uncorrected word substitutions Although every attempt has been made by the provider to proofread this document, occasional misspellings and typographical errors may still be present Due to the previous pandemic, and the use of personal protective equipment (PPE) This may decrease voice recognition accuracy Inadvertent novelty printing machine operator errors may occur 12/05/2023 Dietary counseling and surveillance (ICD-10 - Z71.3) #Weight Management 12/05/2023 Total time spent today was 30 minutes of which greater than 50% was spent on coordinating and counseling Patient has been found to be obese with a BMI of (44). Patient has class (3) obesity. We are a board certified obesity and weight management practice Patient has trialed behavioral modification, dietary restrictions and exercise for a minimum of 6 months The most recent [place] [employer] of clinical endocrinologists and [place] [employer] end[employer]in[employer] guidelines recommend patients who have overweight BMI or obesity BMI, who also have metabolic syndrome, prediabetes, HLD, and other comorbidities or at risk of developing type 2 diabetes should aim for a weight loss goal of at least 10% of the baseline body weight Patient counseled regarding effects of GLP/GIP-1 agonists, and other FDA approved wgt loss meds with regards to a multifactorial approach of weight loss as mentioned above and not solely appetite suppression. We have discussed the mechanism of GLP-1's/GIP, dual incretins I think this would be fantastic option for her given her metabolic workup and body composition We have discussed the risks and benefits and side effects including/and not limited to Sarcopenia, intestinal obstruction, constipation, nausea, lethargy, headache Discussed importance of protein consumption for muscle maintenance as well as strength and resistance training ,probiotics, B12 complex biotin , iron and other nutrients, To help avoid telogen effluvium There is no history of medullary thyroid cancer or multiple endocrine neoplasia There is also no history of cardiovascular disease, hypertension, palpitations, or arrhythmias In the setting of potential stimulant/amphetami ne use such as phentermine We have also discussed risks and benefits, and the use of compounded medications to help offset the national shortages as well as financial implications vs trade name drugs GLP must be discontinued upon initiation We have discussed the lifelong requirement of nutritional supplementation And adherence to an exercise regimen as well as importance We did discuss the neurohormonal changes that are occurring with these medications and Need for long-term Continued usage The patient understands and agrees Patient was reassured and welcomed to the practice. We discussed that we stress a hollistic medical approach with emphasis on lifestyle modification. Patient was informed that a healthy lifestyle with exercise and good eating habits can help reduce his risk of medical complications. He is explained that obesity increases his risk of diabetes, cardiovascular disease, or organ damage. We spent a lot of time discussing the relationship between food, exercise, sleep, mental health and obesity. Patient was counseled on the importance EATING local, organic food when possible. Patient was educated on clean 15 and dirty dozen. I provided information about reading books called The Food Rules by David Maguire and Eat Fat Get Lean by Dr Rocco Dixon. Self education is important in the journey for weight management. Patient was offered diagnostic testing. We want to measure visceral adiposity, advanced body composition, adverse lipids, fatty acid balance, risk for heart disease and atherosclerosis, markers of inflammation and genetic susceptibility. Patient was counseled on weight management and was advised to lose weight using A. Meal Replacement Products We discussed the lifelong requirement of nutritional supplementation and adherence to an exercise regimen as well as importance of dietary f/u Patient was educated on the replacement products called optifast. This is a good way of taking fixed amount of calories. It has been shown in studies to be ineffective weight management tool. We also recommend maintaining adequate protein intake and muscle composition, 1.5mg/kg This however has to be coupled with lifestyle intervention as well as laboratory data and EKG monitoring. It is impossible to know how a person will tolerate complete meal replacement. The side effects of meal replacement and weight loss could include syncopal attacks, dizziness, gallstones, potential cholecystectomy, possible heart attack and even . The benefits of meal replacement would be potential weight loss but no guarantees can be made. Meal replacement products are not covered by insurance. Once the patient has bought these products we cannot return them B. Lifestyle management which includes several strategies as below 1. Eat a low carbohydrate good fat good protein diet. Eliminate refined carbohydrates from the diet. Continue blood sugar and sugared beverages. Eat local organic when possible. Cook your own meals. Read food labels. None about healthy snacks. Portion control and food with low glycemic index 2. Exercise regularly. Try to get at least 6000 steps a day. Use a predominant to track activity level. Consider using apps like Skaffl, myfitnesspal, lose it, stick as needed for self-monitoring and weight management. Consider group exercises. Consider hiring a personal care worker. Regular exercise is marcos to sustainable health and prevents as a buffer against weight regain 3. Sleep is most important for healing. Tried to sleep at least 8 hours a night. A good quality sleep needs a sleep ritual with ideal room temperature of around 68. It might help to take a shower and have no electronics in the room and sleep in a very dark room without artificial light. Start her sleep routine and get up early in the morning and go to bed on time 4. Make a social connection. Surround yourself with positive people with positive energy. Connect with friends and family. 5. Get into the habit of meditating and mindfulness while doing everything. 6. Go outside and connect with nature. C. Prescription medications Patient was educated on the use of prescription medications for medical weight loss. This is a growing list and includes phentermine, Topamax,Qsymia, contrave, belviq and saxenda, wegovy All prescription medications could have side effects including but not limited to kidney stones, seizure disorder cardiac arrhythmias heart attack pancreatitis etc. etc.. Patient was encouraged to read the prescription insert and have coaching with their pharmacist and make an informed decision about taking medication and know that these medications are being prescribed with good intentions and we do not know how a patient would react to her medication. Sudden medications are FDA approved for weight loss and there is also off label use depending on patient's inability to afford medications in an attempt to lose weight D. Behavioral counseling was done to establish a relationship between food and an mood. Patient was provided information about local counseling and psychiatry and Dr Tavarez at [facility]. We would like to cover regular topics and build on low glycemic eating exercise mindful eating, using yoga and meditation along with deep breathing and connecting with friends and family. E. MASS PAT reviewed, Patient's current medications were reviewed and opinion was given on medication that can cause weight gain and can be substituted F. Patient was assessed for risk with obesity including and not limiting to atherosclerosis heart disease stroke kidney disease, restrictive lung disease, irritable bowel syndrome and overall mortality. Risk of developing prediabetes diabetes and metabolic syndrome was discussed G. Therapeutic plan: We have decided to make therapeutic plan which would include choosing wisely on calories restricting portion getting active, tracking weight, getting good quality sleep and working on time management H. Patient will follow up in (4) weeks for weight management Of note, some information is being carried forward from prior records for informational purposes only and is being cited so that efficiency, safety and quality of the patient's care is not compromised This note was prepared using voice recognition software and direct typing Please excuse inadvertent novelty printing machine operator or typing errors, or uncorrected word substitutions Although every attempt has been made by the provider to proofread this document, occasional misspellings and typographical errors may still be present Due to the previous pandemic, and the use of personal protective equipment (PPE) This may decrease voice recognition accuracy Inadvertent novelty printing machine operator errors may occur 12/05/2023 Type 2 diabetes mellitus without complication, without long-term current use of insulin (ICD-10 - E11.9) #Weight Management 12/05/2023 Total time spent today was 30 minutes of which greater than 50% was spent on coordinating and counseling Patient has been found to be obese with a BMI of (44). Patient has class (3) obesity. We are a board certified obesity and weight management practice Patient has trialed behavioral modification, dietary restrictions and exercise for a minimum of 6 months The most recent [place] [employer]ocrin[employer] and [place] [employer] guidelines recommend patients who have overweight BMI or obesity BMI, who also have metabolic syndrome, prediabetes, HLD, and other comorbidities or at risk of developing type 2 diabetes should aim for a weight loss goal of at least 10% of the baseline body weight Patient counseled regarding effects of GLP/GIP-1 agonists, and other FDA approved wgt loss meds with regards to a multifactorial approach of weight loss as mentioned above and not solely appetite suppression. We have discussed the mechanism of GLP-1's/GIP, dual incretins I think this would be fantastic option for her given her metabolic workup and body composition We have discussed the risks and benefits and side effects including/and not limited to Sarcopenia, intestinal obstruction, constipation, nausea, lethargy, headache Discussed importance of protein consumption for muscle maintenance as well as strength and resistance training ,probiotics, B12 complex biotin , iron and other nutrients, To help avoid telogen effluvium There is no history of medullary thyroid cancer or multiple endocrine neoplasia There is also no history of cardiovascular disease, hypertension, palpitations, or arrhythmias In the setting of potential stimulant/amphetami ne use such as phentermine We have also discussed risks and benefits, and the use of compounded medications to help offset the national shortages as well as financial implications vs trade name drugs GLP must be discontinued upon initiation We have discussed the lifelong requirement of nutritional supplementation And adherence to an exercise regimen as well as importance We did discuss the neurohormonal changes that are occurring with these medications and Need for long-term Continued usage The patient understands and agrees Patient was reassured and welcomed to the practice. We discussed that we stress a hollistic medical approach with emphasis on lifestyle modification. Patient was informed that a healthy lifestyle with exercise and good eating habits can help reduce his risk of medical complications. He is explained that obesity increases his risk of diabetes, cardiovascular disease, or organ damage. We spent a lot of time discussing the relationship between food, exercise, sleep, mental health and obesity. Patient was counseled on the importance EATING local, organic food when possible. Patient was educated on clean 15 and dirty dozen. I provided information about reading books called The Food Rules by David Maguire and Eat Fat Get Lean by Dr Rocco Dixon. Self education is important in the journey for weight management. Patient was offered diagnostic testing. We want to measure visceral adiposity, advanced body composition, adverse lipids, fatty acid balance, risk for heart disease and atherosclerosis, markers of inflammation and genetic susceptibility. Patient was counseled on weight management and was advised to lose weight using A. Meal Replacement Products We discussed the lifelong requirement of nutritional supplementation and adherence to an exercise regimen as well as importance of dietary f/u Patient was educated on the replacement products called optifast. This is a good way of taking fixed amount of calories. It has been shown in studies to be ineffective weight management tool. We also recommend maintaining adequate protein intake and muscle composition, 1.5mg/kg This however has to be coupled with lifestyle intervention as well as laboratory data and EKG monitoring. It is impossible to know how a person will tolerate complete meal replacement. The side effects of meal replacement and weight loss could include syncopal attacks, dizziness, gallstones, potential cholecystectomy, possible heart attack and even . The benefits of meal replacement would be potential weight loss but no guarantees can be made. Meal replacement products are not covered by insurance. Once the patient has bought these products we cannot return them B. Lifestyle management which includes several strategies as below 1. Eat a low carbohydrate good fat good protein diet. Eliminate refined carbohydrates from the diet. Continue blood sugar and sugared beverages. Eat local organic when possible. Cook your own meals. Read food labels. None about healthy snacks. Portion control and food with low glycemic index 2. Exercise regularly. Try to get at least 6000 steps a day. Use a predominant to track activity level. Consider using apps like [id number]ise, [employer] Groceryp[employer], lose it, stick as needed for self-monitoring and weight management. Consider group exercises. Consider hiring a personal care worker. Regular exercise is marcos to sustainable health and prevents as a buffer against weight regain 3. Sleep is most important for healing. Tried to sleep at least 8 hours a night. A good quality sleep needs a sleep ritual with ideal room temperature of around 68. It might help to take a shower and have no electronics in the room and sleep in a very dark room without artificial light. Start her sleep routine and get up early in the morning and go to bed on time 4. Make a social connection. Surround yourself with positive people with positive energy. Connect with friends and family. 5. Get into the habit of meditating and mindfulness while doing everything. 6. Go outside and connect with nature. C. Prescription medications Patient was educated on the use of prescription medications for medical weight loss. This is a growing list and includes phentermine, Topamax,Qsymia, contrave, belviq and saxenda, wegovy All prescription medications could have side effects including but not limited to kidney stones, seizure disorder cardiac arrhythmias heart attack pancreatitis etc. etc.. Patient was encouraged to read the prescription insert and have coaching with their pharmacist and make an informed decision about taking medication and know that these medications are being prescribed with good intentions and we do not know how a patient would react to her medication. Sudden medications are FDA approved for weight loss and there is also off label use depending on patient's inability to afford medications in an attempt to lose weight D. Behavioral counseling was done to establish a relationship between food and an mood. Patient was provided information about local counseling and psychiatry and Dr Tavarez at [facility]. We would like to cover regular topics and build on low glycemic eating exercise mindful eating, using yoga and meditation along with deep breathing and connecting with friends and family. E. MASS PAT reviewed, Patient's current medications were reviewed and opinion was given on medication that can cause weight gain and can be substituted F. Patient was assessed for risk with obesity including and not limiting to atherosclerosis heart disease stroke kidney disease, restrictive lung disease, irritable bowel syndrome and overall mortality. Risk of developing prediabetes diabetes and metabolic syndrome was discussed G. Therapeutic plan: We have decided to make therapeutic plan which would include choosing wisely on calories restricting portion getting active, tracking weight, getting good quality sleep and working on time management H. Patient will follow up in (4) weeks for weight management Of note, some information is being carried forward from prior records for informational purposes only and is being cited so that efficiency, safety and quality of the patient's care is not compromised This note was prepared using voice recognition software and direct typing Please excuse inadvertent novelty printing machine operator or typing errors, or uncorrected word substitutions Although every attempt has been made by the provider to proofread this document, occasional misspellings and typographical errors may still be present Due to the previous pandemic, and the use of personal protective equipment (PPE) This may decrease voice recognition accuracy Inadvertent novelty printing machine operator errors may occur 12/05/2023 Graves' disease (ICD-10 - E05.00) #Weight Management 12/05/2023 Total time spent today was 30 minutes of which greater than 50% was spent on coordinating and counseling Patient has been found to be obese with a BMI of (44). Patient has class (3) obesity. We are a board certified obesity and weight management practice Patient has trialed behavioral modification, dietary restrictions and exercise for a minimum of 6 months The most recent [place] [employer] endocrinologists and [place] [employer] guidelines recommend patients who have overweight BMI or obesity BMI, who also have metabolic syndrome, prediabetes, HLD, and other comorbidities or at risk of developing type 2 diabetes should aim for a weight loss goal of at least 10% of the baseline body weight Patient counseled regarding effects of GLP/GIP-1 agonists, and other FDA approved wgt loss meds with regards to a multifactorial approach of weight loss as mentioned above and not solely appetite suppression. We have discussed the mechanism of GLP-1's/GIP, dual incretins I think this would be fantastic option for her given her metabolic workup and body composition We have discussed the risks and benefits and side effects including/and not limited to Sarcopenia, intestinal obstruction, constipation, nausea, lethargy, headache Discussed importance of protein consumption for muscle maintenance as well as strength and resistance training ,probiotics, B12 complex biotin , iron and other nutrients, To help avoid telogen effluvium There is no history of medullary thyroid cancer or multiple endocrine neoplasia There is also no history of cardiovascular disease, hypertension, palpitations, or arrhythmias In the setting of potential stimulant/amphetami ne use such as phentermine We have also discussed risks and benefits, and the use of compounded medications to help offset the national shortages as well as financial implications vs trade name drugs GLP must be discontinued upon initiation We have discussed the lifelong requirement of nutritional supplementation And adherence to an exercise regimen as well as importance We did discuss the neurohormonal changes that are occurring with these medications and Need for long-term Continued usage The patient understands and agrees Patient was reassured and welcomed to the practice. We discussed that we stress a hollistic medical approach with emphasis on lifestyle modification. Patient was informed that a healthy lifestyle with exercise and good eating habits can help reduce his risk of medical complications. He is explained that obesity increases his risk of diabetes, cardiovascular disease, or organ damage. We spent a lot of time discussing the relationship between food, exercise, sleep, mental health and obesity. Patient was counseled on the importance EATING local, organic food when possible. Patient was educated on clean 15 and dirty dozen. I provided information about reading books called The Food Rules by David Maguire and Eat Fat Get Lean by Dr Rocco Dixon. Self education is important in the journey for weight management. Patient was offered diagnostic testing. We want to measure visceral adiposity, advanced body composition, adverse lipids, fatty acid balance, risk for heart disease and atherosclerosis, markers of inflammation and genetic susceptibility. Patient was counseled on weight management and was advised to lose weight using A. Meal Replacement Products We discussed the lifelong requirement of nutritional supplementation and adherence to an exercise regimen as well as importance of dietary f/u Patient was educated on the replacement products called optifast. This is a good way of taking fixed amount of calories. It has been shown in studies to be ineffective weight management tool. We also recommend maintaining adequate protein intake and muscle composition, 1.5mg/kg This however has to be coupled with lifestyle intervention as well as laboratory data and EKG monitoring. It is impossible to know how a person will tolerate complete meal replacement. The side effects of meal replacement and weight loss could include syncopal attacks, dizziness, gallstones, potential cholecystectomy, possible heart attack and even . The benefits of meal replacement would be potential weight loss but no guarantees can be made. Meal replacement products are not covered by insurance. Once the patient has bought these products we cannot return them B. Lifestyle management which includes several strategies as below 1. Eat a low carbohydrate good fat good protein diet. Eliminate refined carbohydrates from the diet. Continue blood sugar and sugared beverages. Eat local organic when possible. Cook your own meals. Read food labels. None about healthy snacks. Portion control and food with low glycemic index 2. Exercise regularly. Try to get at least 6000 steps a day. Use a predominant to track activity level. Consider using apps like [employer], [employer]cer[employer], lose it, stick as needed for self-monitoring and weight management. Consider group exercises. Consider hiring a personal care worker. Regular exercise is marcos to sustainable health and prevents as a buffer against weight regain 3. Sleep is most important for healing. Tried to sleep at least 8 hours a night. A good quality sleep needs a sleep ritual with ideal room temperature of around 68. It might help to take a shower and have no electronics in the room and sleep in a very dark room without artificial light. Start her sleep routine and get up early in the morning and go to bed on time 4. Make a social connection. Surround yourself with positive people with positive energy. Connect with friends and family. 5. Get into the habit of meditating and mindfulness while doing everything. 6. Go outside and connect with nature. C. Prescription medications Patient was educated on the use of prescription medications for medical weight loss. This is a growing list and includes phentermine, Topamax,Qsymia, contrave, belviq and saxenda, wegovy All prescription medications could have side effects including but not limited to kidney stones, seizure disorder cardiac arrhythmias heart attack pancreatitis etc. etc.. Patient was encouraged to read the prescription insert and have coaching with their pharmacist and make an informed decision about taking medication and know that these medications are being prescribed with good intentions and we do not know how a patient would react to her medication. Sudden medications are FDA approved for weight loss and there is also off label use depending on patient's inability to afford medications in an attempt to lose weight D. Behavioral counseling was done to establish a relationship between food and an mood. Patient was provided information about local counseling and psychiatry and Dr Tavarez at [facility]. We would like to cover regular topics and build on low glycemic eating exercise mindful eating, using yoga and meditation along with deep breathing and connecting with friends and family. E. MASS PAT reviewed, Patient's current medications were reviewed and opinion was given on medication that can cause weight gain and can be substituted F. Patient was assessed for risk with obesity including and not limiting to atherosclerosis heart disease stroke kidney disease, restrictive lung disease, irritable bowel syndrome and overall mortality. Risk of developing prediabetes diabetes and metabolic syndrome was discussed G. Therapeutic plan: We have decided to make therapeutic plan which would include choosing wisely on calories restricting portion getting active, tracking weight, getting good quality sleep and working on time management H. Patient will follow up in (4) weeks for weight management Of note, some information is being carried forward from prior records for informational purposes only and is being cited so that efficiency, safety and quality of the patient's care is not compromised This note was prepared using voice recognition software and direct typing Please excuse inadvertent novelty printing machine operator or typing errors, or uncorrected word substitutions Although every attempt has been made by the provider to proofread this document, occasional misspellings and typographical errors may still be present Due to the previous pandemic, and the use of personal protective equipment (PPE) This may decrease voice recognition accuracy Inadvertent novelty printing machine operator errors may occur 12/05/2023 Essential (primary) hypertension (ICD-10 - I10) #Weight Management 12/05/2023 Total time spent today was 30 minutes of which greater than 50% was spent on coordinating and counseling Patient has been found to be obese with a BMI of (44). Patient has class (3) obesity. We are a board certified obesity and weight management practice Patient has trialed behavioral modification, dietary restrictions and exercise for a minimum of 6 months The most recent [place] [employer] of clinical endocrinologists and [place] [employer] guidelines recommend patients who have overweight BMI or obesity BMI, who also have metabolic syndrome, prediabetes, HLD, and other comorbidities or at risk of developing type 2 diabetes should aim for a weight loss goal of at least 10% of the baseline body weight Patient counseled regarding effects of GLP/GIP-1 agonists, and other FDA approved wgt loss meds with regards to a multifactorial approach of weight loss as mentioned above and not solely appetite suppression. We have discussed the mechanism of GLP-1's/GIP, dual incretins I think this would be fantastic option for her given her metabolic workup and body composition We have discussed the risks and benefits and side effects including/and not limited to Sarcopenia, intestinal obstruction, constipation, nausea, lethargy, headache Discussed importance of protein consumption for muscle maintenance as well as strength and resistance training ,probiotics, B12 complex biotin , iron and other nutrients, To help avoid telogen effluvium There is no history of medullary thyroid cancer or multiple endocrine neoplasia There is also no history of cardiovascular disease, hypertension, palpitations, or arrhythmias In the setting of potential stimulant/amphetami ne use such as phentermine We have also discussed risks and benefits, and the use of compounded medications to help offset the national shortages as well as financial implications vs trade name drugs GLP must be discontinued upon initiation We have discussed the lifelong requirement of nutritional supplementation And adherence to an exercise regimen as well as importance We did discuss the neurohormonal changes that are occurring with these medications and Need for long-term Continued usage The patient understands and agrees Patient was reassured and welcomed to the practice. We discussed that we stress a hollistic medical approach with emphasis on lifestyle modification. Patient was informed that a healthy lifestyle with exercise and good eating habits can help reduce his risk of medical complications. He is explained that obesity increases his risk of diabetes, cardiovascular disease, or organ damage. We spent a lot of time discussing the relationship between food, exercise, sleep, mental health and obesity. Patient was counseled on the importance EATING local, organic food when possible. Patient was educated on clean 15 and dirty dozen. I provided information about reading books called The Food Rules by David Maguire and Eat Fat Get Lean by Dr Rocco Dixon. Self education is important in the journey for weight management. Patient was offered diagnostic testing. We want to measure visceral adiposity, advanced body composition, adverse lipids, fatty acid balance, risk for heart disease and atherosclerosis, markers of inflammation and genetic susceptibility. Patient was counseled on weight management and was advised to lose weight using A. Meal Replacement Products We discussed the lifelong requirement of nutritional supplementation and adherence to an exercise regimen as well as importance of dietary f/u Patient was educated on the replacement products called optifast. This is a good way of taking fixed amount of calories. It has been shown in studies to be ineffective weight management tool. We also recommend maintaining adequate protein intake and muscle composition, 1.5mg/kg This however has to be coupled with lifestyle intervention as well as laboratory data and EKG monitoring. It is impossible to know how a person will tolerate complete meal replacement. The side effects of meal replacement and weight loss could include syncopal attacks, dizziness, gallstones, potential cholecystectomy, possible heart attack and even . The benefits of meal replacement would be potential weight loss but no guarantees can be made. Meal replacement products are not covered by insurance. Once the patient has bought these products we cannot return them B. Lifestyle management which includes several strategies as below 1. Eat a low carbohydrate good fat good protein diet. Eliminate refined carbohydrates from the diet. Continue blood sugar and sugared beverages. Eat local organic when possible. Cook your own meals. Read food labels. None about healthy snacks. Portion control and food with low glycemic index 2. Exercise regularly. Try to get at least 6000 steps a day. Use a predominant to track activity level. Consider using apps like Skaffl, [employer], lose it, stick as needed for self-monitoring and weight management. Consider group exercises. Consider hiring a personal care worker. Regular exercise is marcos to sustainable health and prevents as a buffer against weight regain 3. Sleep is most important for healing. Tried to sleep at least 8 hours a night. A good quality sleep needs a sleep ritual with ideal room temperature of around 68. It might help to take a shower and have no electronics in the room and sleep in a very dark room without artificial light. Start her sleep routine and get up early in the morning and go to bed on time 4. Make a social connection. Surround yourself with positive people with positive energy. Connect with friends and family. 5. Get into the habit of meditating and mindfulness while doing everything. 6. Go outside and connect with nature. C. Prescription medications Patient was educated on the use of prescription medications for medical weight loss. This is a growing list and includes phentermine, Topamax,Qsymia, contrave, belviq and saxenda, wegovy All prescription medications could have side effects including but not limited to kidney stones, seizure disorder cardiac arrhythmias heart attack pancreatitis etc. etc.. Patient was encouraged to read the prescription insert and have coaching with their pharmacist and make an informed decision about taking medication and know that these medications are being prescribed with good intentions and we do not know how a patient would react to her medication. Sudden medications are FDA approved for weight loss and there is also off label use depending on patient's inability to afford medications in an attempt to lose weight D. Behavioral counseling was done to establish a relationship between food and an mood. Patient was provided information about local counseling and psychiatry and Dr Tavarez at [facility]. We would like to cover regular topics and build on low glycemic eating exercise mindful eating, using yoga and meditation along with deep breathing and connecting with friends and family. E. MASS PAT reviewed, Patient's current medications were reviewed and opinion was given on medication that can cause weight gain and can be substituted F. Patient was assessed for risk with obesity including and not limiting to atherosclerosis heart disease stroke kidney disease, restrictive lung disease, irritable bowel syndrome and overall mortality. Risk of developing prediabetes diabetes and metabolic syndrome was discussed G. Therapeutic plan: We have decided to make therapeutic plan which would include choosing wisely on calories restricting portion getting active, tracking weight, getting good quality sleep and working on time management H. Patient will follow up in (4) weeks for weight management Of note, some information is being carried forward from prior records for informational purposes only and is being cited so that efficiency, safety and quality of the patient's care is not compromised This note was prepared using voice recognition software and direct typing Please excuse inadvertent novelty printing machine operator or typing errors, or uncorrected word substitutions Although every attempt has been made by the provider to proofread this document, occasional misspellings and typographical errors may still be present Due to the previous pandemic, and the use of personal protective equipment (PPE) This may decrease voice recognition accuracy Inadvertent novelty printing machine operator errors may occur PLAN OF TREATMENT Medication Medication Name Sig Start Date Stop Date Notes Mounjaro 2.5 MG/0.5ML 2.5mg Subcutaneous weekly for 30 days Progress Notes * JASEN Julio CJanelleOB: 2 (54 yo F)Acc No.[id number]:12/05/2023 Patient:??Selam AGGARWAL Provider:??SHAWN STROUD NP :1970?Age:53 Y?Sex:Fe male Date:12/05/2023 Address: [address] , [id number] Subjective: * Chief Complaints: * ? * HPI: ?Constitutional:? Patient is here today for a weight management f/u visit ?Patient seen and examined. ? Full past medical history, social history, family history, ?allergies and current medications were reviewed and updated. ?Body composition analysis reviewed today, as expected increased BMI, ?visceral adiposity, fat mass index, waist cirumference ?Good skeletal mass composition, Good water composition ?Caloric energy expenditure discussed ?we discussed the importance of protein calorie nutrition, maintaning muscle mass, vit b12, biotin, iron ?while on GLP-1 medications, dual incretins, appetitite suppressants ?#Weight Management ?12/05/2023 ?Patient with obvious metabolic syndrome, type II confirmed diabetes and morbid obesity ?[place] candidate for dual incretin therapy ?Patient has Rep Insurance ?Per patient Tirzepitide is covered with prior auth ?Patient reports Pmhx of type 2DM, Graves on Methimazole, chronic Anemia followed by hematology, ?Glaucoma on Timolol, bilateral tinnitus, chronic pain syndrome on Duloxetine and HTN ?Sees endocrinology at [facility] ?12/05/2023, Weight , BMI ?10/15/2023: Weight 237 lbs, BMI: 44.9 ?Patient referred to us from friend who is a patient. 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 ?Diet: Meat, yogurts, vegitables, no fast food, low carbs ?Exercise: Currently does not exercise. Does not count steps daily. ?Non-smoker. ?ETOH use: Occational. * ROS:?All Other Systems:?Review of Systems (ROS)??All others negative except those mentioned in HPI.? * Medical History:?? Objective: * Examination: ?General Examination: ?GENERAL APPEARANCE:??in no acute distress, well developed, well nourished.??HEAD:??normocephalic, atraumatic.??EYES:??pupils equal, round, reactive to light and accommodation.??EARS:??normal.??ORAL CAVITY:??mucosa moist.??THROAT:??clear.??NECK/THYROID:??neck supple, full range of motion, no cervical lymphadenopathy.??SKIN:??no suspicious lesions, warm and dry.??HEART:??no murmurs, regular rate and rhythm, S1, S2 normal.??LUNGS:??clear to auscultation bilaterally.??ABDOMEN:??normal, bowel sounds present, soft, nontender, nondistended.??EXTREMITIES:??no clubbing, cyanosis, or edema.??NEUROLOGIC:??nonfocal, motor strength normal upper and lower extremities, sensory exam intact.? Assessment: * Assessment: 1.??Morbid obesity due to ex cess calories - E66.01 (Primary)??2.??BMI 40.0-44.9, adult - Z68.41??3.??Dietary counseling and surveillance - Z71.3??4.??Type 2 diabetes mellitus without complication, without long-term current use of insulin - E11.9??5.??Graves' disease - E05.00??6.??Essential (primary) hypertension - I10?? #Weight Management 12/05/2023 Total time spent today was 30 minutes of which greater than 50% was spent on coordinating and counseling Patient has been found to be obese with a BMI of (44). Patient has class (3) obesity. We are a board certified obesity and weight management practice Patient has trialed behavioral modification, dietary restrictions and exercise for a minimum of 6 months The most recent [place] [employer] of clinical endocrinologists and [place] [employer]in[employer] guidelines recommend patients who have overweight BMI or obesity BMI, who also have metabolic syndrome, prediabetes, HLD, and other comorbidities or at risk of developing type 2 diabetes should aim for a weight loss goal of at least 10% of the baseline body weight Patient counseled regarding effects of GLP/GIP-1 agonists, and other FDA approved wgt loss meds with regards to a multifactorial approach of weight loss as mentioned above and not solely appetite suppression. We have discussed the mechanism of GLP-1's/GIP, dual incretins I think this would be fantastic option for her given her metabolic workup and body composition We have discussed the risks and benefits and side effects including/and not limited to Sarcopenia, intestinal obstruction, constipation, nausea, lethargy, headache Discussed importance of protein consumption for muscle maintenance as well as strength and resistance training ,probiotics, B12 complex biotin , iron and other nutrients, To help avoid telogen effluvium There is no history of medullary thyroid cancer or multiple endocrine neoplasia There is also no history of cardiovascular disease, hypertension, palpitations, or arrhythmias In the setting of potential stimulant/amphetamine use such as phentermine We have also discussed risks and benefits, and the use of compounded medications to help offset the national shortages as well as financial implications vs trade name drugs GLP must be discontinued upon initiation We have discussed the lifelong requirement of nutritional supplementation And adherence to an exercise regimen as well as importance We did discuss the neurohormonal changes that are occurring with these medications and Need for long-term Continued usage The patient understands and agrees Patient was reassured and welcomed to the practice. We discussed that we stress a hollistic medical approach with emphasis on lifestyle modification. Patient was informed that a healthy lifestyle with exercise and good eating habits can help reduce his risk of medical complications. He is explained that obesity increases his risk of diabetes, cardiovascular disease, or organ damage. We spent a lot of time discussing the relationship between food, exercise, sleep, mental health and obesity. Patient was counseled on the importance EATING local, organic food when possible. Patient was educated on clean 15 and dirty dozen. I provided information about reading books called The Food Rules by David Maguire and Eat Fat Get Lean by Dr Rocco Dixon. Self education is important in the journey for weight management. Patient was offered diagnostic testing. We want to measure visceral adiposity, advanced body composition, adverse lipids, fatty acid balance, risk for heart disease and atherosclerosis, markers of inflammation and genetic susceptibility. Patient was counseled on weight management and was advised to lose weight using A. Meal Replacement Products We discussed the lifelong requirement of nutritional supplementation and adherence to an exercise regimen as well as importance of dietary f/u Patient was educated on the replacement products called optifast. This is a good way of taking fixed amount of calories. It has been shown in studies to be ineffective weight management tool. We also recommend maintaining adequate protein intake and muscle composition, 1.5mg/kg This however has to be coupled with lifestyle intervention as well as laboratory data and EKG monitoring. It is impossible to know how a person will tolerate complete meal replacement. The side effects of meal replacement and weight loss could include syncopal attacks, dizziness, gallstones, potential cholecystectomy, possible heart attack and even . The benefits of meal replacement would be potential weight loss but no guarantees can be made. Meal replacement products are not covered by insurance. Once the patient has bought these products we cannot return them B. Lifestyle management which includes several strategies as below 1. Eat a low carbohydrate good fat good protein diet. Eliminate refined carbohydrates from the diet. Continue blood sugar and sugared beverages. Eat local organic when possible. Cook your own meals. Read food labels. None about healthy snacks. Portion control and food with low glycemic index 2. Exercise regularly. Try to get at least 6000 steps a day. Use a predominant to track activity level. Consider using apps like Skaffl, myfitnesspal, lose it, stick as needed for self-monitoring and weight management. Consider group exercises. Consider hiring a personal care worker. Regular exercise is marcos to sustainable health and prevents as a buffer against weight regain 3. Sleep is most important for healing. Tried to sleep at least 8 hours a night. A good quality sleep needs a sleep ritual with ideal room temperature of around 68. It might help to take a shower and have no electronics in the room and sleep in a very dark room without artificial light. Start her sleep routine and get up early in the morning and go to bed on time 4. Make a social connection. Surround yourself with positive people with positive energy. Connect with friends and family. 5. Get into the habit of meditating and mindfulness while doing everything. 6. Go outside and connect with nature. C. Prescription medications Patient was educated on the use of prescription medications for medical weight loss. This is a growing list and includes phentermine, Topamax,Qsymia, contrave, belviq and saxenda, wegovy All prescription medications could have side effects including but not limited to kidney stones, seizure disorder cardiac arrhythmias heart attack pancreatitis etc. etc.. Patient was encouraged to read the prescription insert and have coaching with their pharmacist and make an informed decision about taking medication and know that these medications are being prescribed with good intentions and we do not know how a patient would react to her medication. Sudden medications are FDA approved for weight loss and there is also off label use depending on patient's inability to afford medications in an attempt to lose weight D. Behavioral counseling was done to establish a relationship between food and an mood. Patient was provided information about local counseling and psychiatry and Dr Tavarez at [facility]. We would like to cover regular topics and build on low glycemic eating exercise mindful eating, using yoga and meditation along with deep breathing and connecting with friends and family. E. MASS PAT reviewed, Patient's current medications were reviewed and opinion was given on medication that can cause weight gain and can be substituted F. Patient was assessed for risk with obesity including and not limiting to atherosclerosis heart disease stroke kidney disease, restrictive lung disease, irritable bowel syndrome and overall mortality. Risk of developing prediabetes diabetes and metabolic syndrome was discussed G. Therapeutic plan: We have decided to make therapeutic plan which would include choosing wisely on calories restricting portion getting active, tracking weight, getting good quality sleep and working on time management H. Patient will follow up in (4) weeks for weight management Of note, some information is being carried forward from prior records for informational purposes only and is being cited so that efficiency, safety and quality of the patient's care is not compromised This note was prepared using voice recognition software and direct typing Please excuse inadvertent novelty printing machine operator or typing errors, or uncorrected word substitutions Although every attempt has been made by the provider to proofread this document, occasional misspellings and typographical errors may still be present Due to the previous pandemic, and the use of personal protective equipment (PPE) This may decrease voice recognition accuracy Inadvertent novelty printing machine operator errors may occur. Plan: * Treatment: * Images: Billing Information: * Visit Code:?? * Procedure Codes:?? * Sign off status: Pending * Provider:??SHAWN STROUD NP Date:??10/2023 History and Physical Notes * HPI (History of Present Illness) Category Sub-Category Detail Notes Category Not es Constitutional Patient is here today for a weight management f/u visit Patient seen and examined. Full past medical history, social history, family history, allergies and current medications were reviewed and updated. Body composition analysis reviewed today, as expected increased BMI, visceral adiposity, fat mass index, waist cirumference Good skeletal mass composition, Good water composition Caloric energy expenditure discussed we discussed the importance of protein calorie nutrition, maintaning muscle mass, vit b12, biotin, iron while on GLP-1 medications, dual incretins, appetitite suppressants #Weight Management 12/05/2023 Patient with obvious metabolic syndrome, type II confirmed diabetes and morbid obesity [place] candidate for dual incretin therapy [facility] [employer] [facility] Per patient Tirzepitide is covered with prior auth Patient reports Pmhx of type 2DM, Graves on Methimazole, chronic Anemia followed by hematology, Glaucoma on Timolol, bilateral tinnitus, chronic pain syndrome on Duloxetine and HTN Sees endocrinology at [facility] 12/05/2023, Weight , BMI 10/15/2023: Weight 237 lbs, BMI: 44.9 Patient referred to us from friend who is a patient. 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 Diet: Meat, yogurts, vegitables, no fast food, low carbs Exercise: Currently does not exercise. Does not count steps daily. Non-smoker. ETOH use: Occational Examination Category Sub-Category Detail Notes Category Not es General Examination GENERAL APPEARANCE: in no ac kellie distress, well developed, well nourished HEAD: normocephalic, atrau matic EYES: pupils equal, round, reactive to light and accommodation EARS: normal THROAT: clear NECK/THYROID: neck supple, full ra nge of motion, no cervical lymphadenopathy HEART: no murmurs, regular rate and rhythm, S1, S2 normal LUNGS: clear to auscultatio n bilaterally ABDOMEN: normal, bowel sounds present, soft, nontender, nondistended NEUROLOGIC: nonfocal, motor stre ngth normal upper and lower extremities, sensory exam intact SKIN: no suspicious lesion s, warm and dry EXTREMITIES: no clubbing, cyanosi s, or edema ORAL CAVITY: mucosa moist
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
--- OUTSIDE RECORDS SUMMARY | 2024-11-10 08:36 | XMS_ITS ---
Author Organization [facility] Address [address] [place] [address] Care Team Providers Care Insole Department Worker Name Role Phone SHAWN STROUD Unavailable [phone] MEDICATIONS Medication SIG (Take, Route, Fr equency, Duration) Notes Start Date End Date Status Mounjaro 2.5 MG/0.5ML 2.5mg Subcutaneous weekly for 30 days 10/15/2023 Active Encounters Encounter Location Date Provider Diagnosis [address] [address] 10/25/2023 SHAWN STROUD Type 2 diabetes mellitus without complication, without long-term current use of insulin E11.9 ASSESSMENTS Encounter Date Diagnosis Assessment Notes Treatment Notes Treatment Clinical Notes Section Notes 10/25/2023 Type 2 diabetes mellitus without complication, without long-term current use of insulin (ICD-10 - E11.9) PLAN OF TREATMENT Medication Medication Name Sig Start Date Stop Date Notes Mounjaro 2.5 MG/0.5ML 2.5mg Subcutaneous weekly for 30 days 10/15/2023 Progress Notes * Julio C AGGARWALJanelleOB: 2 (53 yo F)Acc No.[id number]:10/25/2023 Patient:??Selam AGGARWAL :1970?Age:53 Y?Sex:Fe male Address:[place] [address] * Refills?? Refill Mounjaro Solution Pen-injector, 2.5 MG/0.5ML, Subcutaneous, 4 Pen Needle, 2.5mg, weekly, 30 days, Refills=3 * true * Date:??
--- OUTSIDE RECORDS SUMMARY | 2024-11-10 08:36 | XMS_ITS | Encounter Summary ---
Author Organization [facility] Address [address] [place] [address] Care Team Providers Care Loader Demolder Name Role Phone Geoffrey Payne MD Primary Care Provider [phone] Reason for Visit * Reason Comments Appointment Encounter Details Date Type Department Care Team ([facility] st Contact Info) Description 08/08/[address] [facility] [address] [place] [address] Kathy Pond MD [address] [place] [address] Appointment Social History Tobacco Use Types Packs/Day Years Used Date Smoking Tobacco: Never Smokeless Tobacco: Never Alcohol Use Standard Drinks/Week Comments Yes 0 (1 standard drink = 0.6 oz pur e alcohol) SOCIAL [employer] - Occupational Stress Questionnaire Answer Date Recorded Do you feel stress - tense, restless, nervous, or anxious, or unable to sleep at night because your mind is troubled all the time - these days? To some extent 07/18/2023 Physical Activity Answer Date Recorded On average, how many days pe r week do you engage in moderate to strenuous exercise (like a brisk walk)? 3 07/18/2023 On average, how many minutes do you exercise per day at this level? 30 07/18/2023 Comments Unknown Sex and Gender Information Value [...] AM EDT Procedure visit [facility] [address] [place] [address] Alexis Lawton MD [address] [facility] [address] [place], [place] [address] 03/05/2025 8:20 AM EDT Office Visit [facility] [place] [address] [facility] [address] [place] [phone] Lenore De La Torre APRN 7 [facility] [address] [place] [phone] documented as of this encounter Visit Diagnoses Not on filedocumented in this encounter Care Teams Loader Demolder Relationship Specialty Start Date End Date Geoffrey Payne MD [address] [place] [address] PCP - General 04/03/23 documented as of this encounter
--- OUTSIDE RECORDS SUMMARY | 2024-11-10 08:36 | XMS_ITS | Encounter Summary ---
Author Organization [facility] Address [address] [place] [address] Care Team Providers Care Emerging Technologies Director Name Role Phone Geoffrey Payne MD Primary Care Provider [phone] Encounter Details Date Type Department Care Team (Late st Contact Info) Description 06/09/2024 Scanned Document [facility] [address] [place] [phone] Alexis Lawton MD [address] [place] [address] Social History Tobacco Use Types Packs/Day Years Used Date Smoking Tobacco: Never Smokeless Tobacco: Never Alcohol Use Standard Drinks/Week Comments Yes 0 (1 standard drink = 0.6 oz pur e alcohol) SOCIAL [place] [employer] - Occupational Stress [...] AM EDT Procedure visit [facility] [address] [facility] [address] [place] [address] Alexis Lawton MD [address] [facility] [address] [place] [address] 03/05/2025 8:20 AM EDT Office Visit [facility] [place] [address] [facility] [address] [place] [phone] Lenore De La Torre, LOGAN 7 [facility] [address] [place] [phone] documented as of this encounter Visit Diagnoses Not on filedocumented in this encounter Care Teams Emerging Technologies Director Relationship Specialty Start Date End Date Geoffrey Payne MD [address] [place] [address] PCP - General 04/03/23 documented as of this encounter
--- OUTSIDE RECORDS SUMMARY | 2024-11-10 08:36 | XMS_ITS | Data Portability ---
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 [place] [facility] [place] 5 13:11:10 [id number] duloxetin e medicatio n Not available Not available Not available 07/09/2024 15316 RxNorm Gina Sullivan null, [place] - [place] [facility] [place] 5 13:11:16 [id number] erythromy ike medicatio n Not available Not available Not available 07/09/2024 4053 RxNorm Gina Sullivan null, [place] - [place] [facility] [place] 5 13:11:25 [id number] nickel sulfate Not available Not available Not available Not available 08/28/20242014 23577 RxNorm React ion: Other (See Comme nts), sever ity: Unkno wn;Ot her react ion(s ): Other (see comme nts)S kin Irrit ation Other react ion(s ): Other (see comme nts), Other (See Comme nts)O ther react ion(s ): Other (see comme nts)S kin Irrit ation Other react ion(s ): Other (see comme nts)S kin Irrit ation Other react ion(s ): Other (see comme nts), Other (See Comme nts)O ther react ion(s ): Other (see comme nts)S kin Irrit ation Not Available [facility] 13:59:35 [id number] honey bee venom environme nt Not available Not available Not available 08/28/20242014 83785 7 RxNorm React ion: Anaph ylaxi s, sever ity: Unkno wn Not Available [facility] 13:59:36 Medications Name Sig Start Date Stop Date Status Note LastModified by Organization Details LastModified Time methocarbam ol 500 mg tablet TAKE 1 TABLET ORALLY 3 TIMES DAILY NEEDED FOR MUSCLE SPASM 07/14 completed Not Available Not Available Not Available prednisone 10 mg tablet TAKE 1 TABLET BY MOUTH DAILY NEEDED FOR ANGIOEDEM A GO TO ER IF SECOND DOSE NEEDED IN ONE DAY NEEDED FOR ANGIOEDEM A active Not Available Not Available No t Available cetirizine 10 mg tablet TAKE 1 TABLET BY MOUTH TWICE A DAY active Not Available Not Available No t Available ibuprofen 800 mg tablet TAKE 1 TABLET BY MOUTH EVERY 8 HOURS FOR 10 DAYS active Not Available Not Available No t Available Lidocaine Viscous 2 % mucosal solution TAKE 5 ML EVERY 4 TO 6 HOURS (PAIN) FOR 5 DAYS YOU MAY SWISH FOR 30 SECONDS AND SWALLOW OR SPIT active Not Available Not Available No t Available ofloxacin 0.3 % eye drops INSTILL 1 DROP TO EYE(S) 6 TIMES PER DAY FOR 2 DAYS THEN TAKE 1 DROP 4 TIMES PER DAY FOR 5 DAYS. active Not Available Not Available No t Available fluconazole 150 mg tablet TAKE 1 TABLET BY MOUTH DAILY X2 DAYS. MAY TAKE SECOND TAB ON DAY 3 WITH CONTINUIN G SYMPTOMS 07/14 completed Not Available Not Available Not Available ketotifen 0.025 % (0.035 %) eye drops INSTILL 1 DROP INTO BOTH EYES 2 TIMES A DAY. active Not Available Not Available No t Available meloxicam 15 mg tablet TAKE 1 TABLET BY MOUTH ONCE DAILY IF NEEDED FOR MODERATE PAIN (SCIATICA , BODY PAIN) 07/14 completed Not Available Not Available Not Available carbamazepi ne ER 100 mg tablet,exte nded release,12 hr TAKE 1 TABLET BY MOUTH EVERY 12 HOURS 07/14 completed Not Available Not Available Not Available ondansetron HCl 4 mg tablet TAKE 1 TABLET BY MOUTH EVERY 8 HOURS 07/14 completed Not Available Not Available Not Available prednisone 20 mg tablet take 2 tablets by mouth once daily for 4 days 2017 active Not Available Not Available Not Avai lable phenobarb-h yoscy-atrop ine-scop 16.2 mg-0.1037 mg-0.0194 mg/5 mL elixir Take by mouth. active Not Available Not Available No t Available phenytoin sodium extended 100 mg capsule Take 1 capsule (100 mg total) by mouth 3 (three) times a day. active Not Available Not Available No t Available tramadol 50 mg tablet TAKE 1 TABLET BY MOUTH EVERY 6 HOURS NEEDED FOR SEVERE PAIN active Not Available Not Available No t Available ketorolac 0.5 % eye drops INSTILL 1 DROP INTO AFFECTED EYE(S) BY OPHTHALMI C ROUTE 4 TIMES PER DAY active Not Available Not Available No t Available amoxicillin 875 mg tablet TAKE 1 TABLET BY MOUTH TWICE A DAY FOR 7 DAYS 07/14 completed Not Available Not Available Not Available famotidine 20 mg tablet 0 Refills, [employer] , 01/12/20 9:01:00 EDT 2019 active Not Available Not Available Not Avai lable diazepam 2 mg tablet TAKE 1 TABLET BY MOUTH DAILY AT BEDTIME NEEDED FOR SPASM active Not Available Not Available No t Available ferrous sulfate 325 mg (65 mg iron) tablet Iron, Refills 0, Maintenan ce, 09/17/19 8:23:00 EDT, Supply 2019 active Not Available Not Available Not Avai lable clotrimazol e-betametha sone 1 %-0.05 % topical cream apply SPARINGLY to affected area twice a day for UP TO 2 WEEKS 2017 active Not Available Not Available Not Avai lable fluorometho lone 0.1 % eye drops,suspe nsion SHAKE LIQUID AND INSTILL 1 DROP IN BOTH EYES THREE TIMES DAILY FOR 14 DAYS 07/14 completed Not Available Not Available Not Available lidocaine 5 % topical patch APPLY 1 PATCH TOPICALLY TO THE SKIN DAILY NEEDED FOR MODERATE PAIN active Not Available Not Available No t Available ibuprofen 400 mg tablet 2019 active Not Available Not Available Not Avai lable pseudoephed rine ER 240 mg tablet,exte nded release 24 hr Take 1 tablet by mouth every morning. 2017 active Not Available Not Available Not Avai lable indapamide 1.25 mg tablet Take 1.25 tablets by mouth daily. 2023 active Not Available Not Available Not Avai lable diclofenac potassium 50 mg tablet TAKE 1 TABLET BY MOUTH TWICE DAILY NEEDED FOR MODERATE PAIN active Not Available Not Available No t Available methimazole 5 mg tablet Take 1 tablet (5 mg total) by mouth daily. active Not Available Not Available No t Available norethindro ne acetate 5 mg tablet TAKE 1 TABLET BY MOUTH EVERY DAY active Not Available Not Available No t Available epinephrine 0.3 mg/0.3 mL injection, auto-inject or INJECT 0.3 MG INTO THE MUSCLE NEEDED FOR ANAPHYLAC TIC REACTION 2021 active Not Available Not Available Not Avai lable scopolamine 1 mg over 3 days transdermal patch 1 patch every 3 (three) days. 2021 active Not Available Not Available Not Avai lable timolol maleate 0.5 % eye drops INSTILL 1 DROP INTO EACH EYE EVERY DAY. active Not Available Not Available No t Available ipratropium bromide 42 mcg (0.06 %) nasal spray SPRAY 2 SPRAYS INTO EACH NOSTRIL 3 TIMES A DAY FOR 14 DAYS active Not Available Not Available No t Available metformin ER 500 mg tablet,exte nded release 24 hr TAKE 1 TABLET BY MOUTH EVERY MORNING WITH BREAKFAST . 07/14 completed Not Available Not Available Not Available dicyclomine 10 mg capsule TAKE 1 CAPSULE BY MOUTH FOUR TIMES DAILY BEFORE MEALS AND AT BEDTIME FOR ABDOMINAL PAIN 2021 active Not Available Not Available Not Avai lable dorzolamide 2 % eye drops INSTILL 1 DROP INTO AFFECTED EYE(S) BY OPHTHALMI C ROUTE 3 TIMES PER DAY active Not Available Not Available No t Available cyclobenzap rine 5 mg tablet TAKE 1 TABLET BY MOUTH DAILY AT BEDTIME NEEDED FOR BACK PAIN OR SPASM active Not Available Not Available No t Available duloxetine 30 mg capsule,del ayed release PLEASE SEE ATTACHED FOR DETAILED DIRECTION S 07/14 completed Not Available Not Available Not Available pregabalin 50 mg capsule TAKE 1 CAPSULE BY MOUTH THREE TIMES A DAY 07/14 completed Not Available Not Available Not Available pregabalin 75 mg capsule TAKE 1 CAPSULE ORALLY 2 TIMES A DAY FOR PAIN FOR 30 DAYS 07/14 completed Not Available Not Available Not Available diclofenac 1 % topical gel APPLY TOPICALLY FOUR TIMES DAILY active Not Available Not Available No t Available cholecalcif cornelia (vitamin D3) 50 mcg (2,000 unit) capsule Take by mouth. 2019 active Not Available Not Available Not Avai lable Zyrtec 10 mg capsule Take 1 capsule (10 mg total) by mouth daily. 05/28 completed Not Available Not Available Not Available naloxone 4 mg/actuatio n nasal spray ADMINISTE R 1 SPRAY INTO ONE NOSTRIL NEEDED. CALL 911. REPEAT AFTER 2-3 MIN IF NO/MINIMA L RESPONSE active Not Available Not Available No t Available BD Ayaka 2nd Gen Pen Needle 32 gauge x / TO USE DAILY WITH PEN DEVICE active Not Available Not Available No t Available prednisolon e 1 %-moxifloxa ike 0.5 % eye drops,suspe nsion active Not Available Not Available Not Available Paxlovid 300 mg (150 mg x 2)-100 mg tablets in a dose pack TAKE 3 TABLETS BY MOUTH TWICE A DAY FOR 5 DAYS 07/14 completed Not Available Not Available Not Available Vitals Date Recorded Body weight Body mass index (BMI) Body height Provider Name and Address Organization Details Last Updated DateTime 07/14/2024 825399.25 g 43.5 kg/m2 154.94 cm Gina Sullivan [facility] [place] 07/14/2024 13:56:19 Social History Question Answer Notes LastModified by Organizat ion Details LastModified Time Tobacco Smoking Status Never Smoker Gina Sullivan null, [facility] [place] 07/09/2024 13:13:35 Alcohol Use Rare [email or web address] Information n ot available 07/09/2024 Sex: Unknown Functional Status None recorded. Mental Status None recorded. Family History Relationship Description Onset Age of this Age Resolved Age Notes LastModified by Organization Details LastModified Time Mother Asthma [email or web address] Not available 07/09/2024 13:14:53 Mother Allergic rhinitis [email or web address] Not available 07/09 13:15:38 Maternal Grandmother Asthma [email or web address] Not available 01/2025 13:14:53 Maternal Grandmother Allergic rhinitis [email or web address] Not available 07/09 13:15:39 Daughter Asthma [email or web address] Not availab le 07/09/2024 13:14:53 Daughter Allergic rhinitis [email or web address] Not available 07/09 13:15:39 Daughter Eczema [email or web address] Not availab le 07/09/2024 13:16:34 Son Asthma [email or web address] Not available 07/09/2024 13:14:53 Son Asthma #2 [email or web address] Not available 07/09/2024 13:14:53 Son Allergic rhinitis [email or web address] Not available 07/09 13:15:39 Son Allergic rhinitis #2 [email or web address] Not available 07/09 13:15:39 Son Eczema kmussenden Not available 07/09/2024 13:16:34 Father Diabetes mellitus [email or web address] Not available 07/09 13:15:56 Brother Heart disease [email or web address] Not available 07/09 13:16:12 Medical History Condition Response Past Medical History as per Problem List Y Gynecological HistoryNo gynecological history recorded. 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,3 galactose 639203131 T78.1XXA Health Concerns Section Related Observation LastModified by Organization Detai ls LastModified Time None Recorded Concern Status LastModified by Organization Details LastModified Time None Recorded Advance Directives Directive None Recorded Payers Insurance Date Sequence Insurance Name Policy Number Policy Burkett Covered Member ID Burkett Member ID Guarantor Name 09/15/[address] [place] [address] [id number] Selam Aggarwal [id number] Selam Aggarwal Notes Date Note Type Note Provider Name and Address Organization Details Recorded Time 07/14/2024 text/html TELEHEALTH (Vide o and Audio) The patient received guidance on receiving healthcare through telehealth, including the use of HIPAA privacy -compliant technology for remote communication and its associated privacy risks.? ? ? The patient was also informed of the limitations of treatment provided through telehealth and that in the event of a lost or failed video connection, the provider may call back or reschedule the visit.? ? ? Alternatively, the patient may opt for an in-person visit.? ? ? The patient gave consent for the use of video communication and provided care.? ? ? The patient understands the visit will be submitted to their insurance and that they are responsible for any copay or deductible charges.? ? ? A video telemedicine conference was performed via [employer]. Total time spent reviewing records, encounter, coordinating care: 31 minutes Patient Location: Her home Provider Location: [facility] Office Dear Dr. Payne,? ? 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 She also has Grave's disease for which she has a beta eron (propranolol) available PRN tachycardia, but she rarely needs to take it.I saw Selam for an initial consultation on 05/28/24, at which time she reported having had allergies since her teenage years and received allergy shots (AIT) at that time. Her symptoms had been milder since then, but suddenly in Jan 2024 her symptoms worsened and have persisted. She wanted to find out why. She also had a h/o angioedema and urticaria since ~2014, for which she had been hospitalized 2x for facial/mouth angioedema in the past. She also reported several hospitalizations for for idiopathic anaphylaxis, although she thinks now it was due to tapering her prednisone too quickly. One of her doctors thinks she has alpha gal and wants her to be tested for this. She had asthma as a teenager, which she attributed to having a dog at that time. Her eczema had been worse lately as well, but had not seen derm in awhile and was using OTC hydrocortisone PRN. She also reported that with 1 prior sting on her neck, she developed localized swelling and also had trouble breathing and then felt sick for 1 week afterwards. She planned to return to the office for allergy skin testing, although it was not clear why her rhinitis had worsened since Jan 2024. I felt she likely had CIU and was unlikely to have alpha gal but would order some labs to evaluate for CIU, IA, and alpha gal.I then saw her on 06/11/24, at which time she came into the office for allergy skin testing which was to dust mites only. Her lab tests showed a normal tryptase level at 4, the histamine release assay was still pending and the wrong alpha gal test was performed. I could not explain her worsening symptoms lately from an allergy perspective, and she could not take a nasal steroid due to glaucoma, so I recommended she try Astepro nasal spray.She comes today for follow-up.? ? ?She did try Astepro PRN, which does feel helps her. She lost her lab slip, so she needs it reprinted and didn't get her lab checked. 2x she had mild angioedema, but taking Benadryl PRN worked well for her. She is having an eye issue with her macular hole, so she is on a bunch of eye drops now. Patient has no other questions/concerns for today's visit. ? ? ? Allergy/Immunology History:? ? ?Initial visit with Dr. Schwartz (allergy) was 05/28/24.I reviewed 10 pages of notes/referral from rheum for reported h/o angioedema. ?ARC: She has had allergies since teenage years, for which she took allergy shots. In Jan 2024, her symptoms worsened. She has nasal congestion, sinus pressure, and irritated eyes. She takes Zyrtec BID, since Jan 2024. She didn? t take any Zyrtec for a ~3 days last week, and she had return of her symptoms (chana a lot of nasal/sinus discharge/mucus). She had not taken a daily allergy medication for awhile, and was just taking it PRN (was either Claritin or ChlorTrimiton PRN) until Jan 2024 when her symptoms worsened randomly.Skin Prick Testing (06/11/24): Immediate hypersensitivity skin prick tests were placed to a selected panel of indoor and outdoor allergens as well as soy and histamine and saline controls. Results were as follows: positive to D. Pteronyssinus, D. Farinae; all other allergens tested were negative, the saline control was negative and the histamine control was positive. (see chart for list of allergens tested). Dermatographism testing: Negative.Intradermal Skin Testing: pt declined today. CIU/angio vs IA:She has had angioedema and chronic urticaria for 8-9 years. She was hospitalized 2x for angioedema in the past, due to facial/mouth angioedema. She has also been hospitalized for anaphylaxis a few times as well. No clear cause was found for any of these episodes. However, then they think it was caused by too quick of a taper of prednisone for it, so now she takes a slower taper and does better. She typically only gets angioedema randomly 2x/year, typically starts as swelling of her lip. She takes prednisone (typically 10-20 mg x1 or possibly 2 days only) and Benadryl, and if this doesn? t work then she will go to the ER but she has not needed to go to the ER lately since she can manage it at home. She has not had hives in a long time. She has not been taking anything to prevent the hives or swelling. She feels it is completely random and it seems to be occurring less frequently.? ? ?Labs: 05/28/24: Tryptase ?<11.0 mcg/L 4.8 Histamine release assay still pending. ?Alpha gal:She reports that a doctor thinks she may have alpha gal. She reports that her swelling started after being at a BBQ and she does think that it caused the start of her swelling the first time. She is not sure how to be tested to this.? ? ?Component ?Latest Ref Rng 05/28/2024 Alpha Galactosidase, S ?0.074 - 0.457 U/L 0.236 Interpretation ? W monie test for alpha gal was done, so may consider doing correct test if patient wants. She has Grave? s :as an autoimmune condition and possibly others. She sees rheumatology, but no clear diagnoses has been found.? ? ?She had asthma:as a teenager. She attributes it to having a dog at that time and her allergies were bad at that time. She denies asthma as an adult.? ? ?She has eczema:It has been worse lately. She uses hydrocortisone OTC. She has not seen a cd reactor operator head in [place], so she does not have a Rx currently.? ? ?Hymenoptera all:She reports that with 1 sting from a bee, she was stung on her neck and developed localized swelling, felt she had trouble breathing, and was sick for 1 week afterwards.? ? ?She has propranolol available for PRN tachycardia for Grave? s , but she does not typically need it.? ? ?She denies any food or latex allergies. Marjorie Schwartz MD [address] [place] [address], [address], [place], [address], [place] [facility] 09/15/2024 09:48:35 OBGyn Episode No OBEpisode recorded.
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
--- OUTSIDE RECORDS SUMMARY | 2024-11-10 08:36 | XMS_ITS | Encounter Summary ---
Author Organization [facility] Address [address] [place] [id number] Care Team Providers Care Pyrotechnics Press Tender Name Role Phone Geoffrey Payne MD Primary Care Provider [phone] Encounter Details Date Type Department Care Team (Late st Contact Info) Description 04/27/2023 Scanned Document [facility] [address] [phone] Alexis Lawton MD [address] [facility] [address] [place] [address] Social History Tobacco Use Types Packs/Day Years Used Date Smoking Tobacco: Never Smokeless Tobacco: Never Alcohol Use Standard Drinks/Week Comments Yes 0 (1 standard drink = 0.6 oz pur e alcohol) SOCIAL Comments Unknown Sex and Gender Information Value [...] 8:00 AM EDT Procedure visit [facility] [address] [place] [phone] Alexis Lawton MD [address] [facility] [address] [place] [phone] 03/05/2025 8:20 AM EDT Office Visit [facility] [place] [address] [place] [address] Lenore De LaT orre, LOGAN [address] [facility] [address] [place] [address] documented as of this encounter Visit Diagnoses Not on filedocumented in this encounter Care Teams Pyrotechnics Press Tender Relationship Specialty Start Date End Date Geoffrey Payne MD [address] [place] [address] PCP - General 04/03/23 documented as of this encounter
--- OUTSIDE RECORDS SUMMARY | 2024-11-10 08:36 | XMS_ITS | Encounter Summary ---
Author Organization [facility] Address [address] [place] [address] Care Team Providers Care Cane Flume Feeding Machine Operator Name Role Phone Delmy Payne MD Primary Care Provider [phone] Encounter Details Date Type Department Care Team (Late st Contact Info) Description 08/02/2024 Ophth Exam [facility] [address] [place] [phone] Indira Sanchez MD [address] [place] [phone] Social History Tobacco Use Types Packs/Day Years [...] Orientation Straight 10/26/2020 3: 07 PM EDT documented as of this encounter Plan of Treatment Upcoming Encounters Date Type Department Care Team (Late st Contact Info) Description 12/10/2024 7:45 AM EDT Follow-Up [facility] at [address] [phone] Seun Esteban MD [address] [place] [phone] 12/25/2024 7:45 AM EDT Clinical Support [facility] [address] [place] [address] 12/25/2024 8:00 AM EDT Follow-Up [address] [address] Sharri Mac MD [address] [place] [phone] documented as of this encounter Visit Diagnoses Not on filedocumented in this encounter Care Teams Cane Flume Feeding Machine Operator Relationship Specialty Start Date End Date Delmy Payne MD [address] [place] [address] PCP - General Internal Medicine 05/17/23 documented as of this encounter
--- OUTSIDE RECORDS SUMMARY | 2024-11-10 08:36 | XMS_ITS | Patient Health Record ---
Author Organization [facility] Address [address] [place] [address] Care Team Providers Care Hosiery Mater Name Role Phone SHAWN STROUD Unavailable [phone] ALLERGIES Allergen (clinical drug ingredient) Drug/Non Drug Allergy documented on EMR Reaction Allergy Type Onset Date Status Substance with sulfonamide structure and antibacterial mechanism of action (substance) sulfa eye drops (uncoded) corneal abrasion Allergy Active tb antigen (uncoded) anaphylaxis Allergy Active azithromycin zithrom (uncoded) GI issues Allergy Active amlodipine Amlodipine blood clot Drug Allergy Acti ve REASON FOR REFERRAL No Information MEDICATIONS Medication SIG (Take, Route, Frequency, Duration) Notes Start Date End Date Status Fioricet 50-300-40 MG 1 capsule as neede d Orally every 4 hrs Active Diclofenac Active predniSONE 10 MG 1 tablet Orally Once a day PRN Active methIMAzole 5 MG 1 tablet Orally Once a day Active Lidocaine 5 % 1 patch remove after 12 hours Externally Once a day Active Mounjaro 2.5 MG/0.5ML 2.5mg Subcutaneous weekly for 30 days Active Famotidine 40 MG/4ML 2 mL Intravenous Tw ice a day Active Selenium 200 MCG 1 capsule Orally Onc e a day Active EPINEPHrine (Anaphylaxis) 1 MG/ML as directed Injection Active Wegovy 0.25 MG/0.5ML Inject 0.25MG Subcutaneous weekly for 30 days 10/29/2023 Active Cyclobenzaprine HCl 10 MG 1 tablet at be dtime as needed Orally Once a day 3x daily Active Timolol Maleate 10 MG 1 tablet with food Orally Twice a day Active PROBLEMS Problem Type ICD Code Onset Dates Problem Status W/U Status Risk SNOMED Code Notes Problem Essential (primary) hypertension (I10) Active confirmed 17221453 Problem BMI 40.0-44.9, adult (Z68.41) Active confirmed 814819491 Problem Type 2 diabetes mellitus without complication, without long-term current use of insulin (E11.9) Active confirmed 289097825 Problem Morbid obesity due to excess calories (E66.01) Active confirmed 756578350 Encounters Encounter Location Date Provider Diagnosis [facility] [address] [address] 12/05/2023 SHAWN STROUD Morbid obesity due t o excess calories E66.01 ; BMI 40.0-44.9, adult Z68.41 ; Dietary counseling and surveillance Z71.3 ; Type 2 diabetes mellitus without complication, without long-term current use of insulin E11.9 ; Graves' disease E05.00 and Essential (primary) hypertension I10 ASSESSMENTS Encounter Date Diagnosis Assessment Notes Treatment Notes Treatment Clinical Notes Section Notes 12/05/2023 BMI 40.0-44.9, adult (ICD-10 - Z68.41) [...] minimum of 6 months The most recent [place] [employer] clinical endocrinologists and [place] [employer] guidelines recommend patients who [...] track activity level. Consider using apps like [employer], TrabajoPanelpal, lose it, stick as needed for self-monitoring and weight management. Consider group exercises. Consider hiring a seeing eye dog trainer. Regular exercise is marcos to sustainable health [...] counseling and psychiatry and Dr Tavarez at [facility] [employer] We would like to cover regular topics [...] software and direct typing Please excuse inadvertent lathe set up operator or typing errors, or uncorrected word substitutions Although every attempt has been made by the provider to proofread this document, occasional misspellings and typographical errors may still be present Due to the previous pandemic, and the use of personal protective equipment (PPE) This may decrease voice recognition accuracy Inadvertent lathe set up operator errors may occur 12/05/2023 Morbid obesity due to excess calories [...] minimum of 6 months The most recent [place] [employer] clinical endocrinologists and [place] [employer] guidelines recommend patients who [...] track activity level. Consider using apps like [employer], [employer]abajo[employer]pal, lose it, stick as needed for self-monitoring and weight management. Consider group exercises. Consider hiring a seeing eye dog trainer. Regular exercise is marcos to sustainable health [...] counseling and psychiatry and Dr Tavarez at [facility] [employer] We would like to cover regular topics [...] software and direct typing Please excuse inadvertent lathe set up operator or typing errors, or uncorrected word substitutions Although every attempt has been made by the provider to proofread this document, occasional misspellings and typographical errors may still be present Due to the previous pandemic, and the use of personal protective equipment (PPE) This may decrease voice recognition accuracy Inadvertent lathe set up operator errors may occur 12/05/2023 Dietary counseling [...] minimum of 6 months The most recent [place] [employer] clinical endocrinologists and [place] [employer] guidelines recommend patients who [...] track activity level. Consider using apps like [employer], [employer]ajo[employer]pal, lose it, stick as needed for self-monitoring and weight management. Consider group exercises. Consider hiring a seeing eye dog trainer. Regular exercise is marcos to sustainable health [...] counseling and psychiatry and Dr Tavarez at [facility] We would like to cover regular topics [...] software and direct typing Please excuse inadvertent lathe set up operator or typing errors, or uncorrected word substitutions Although every attempt has been made by the provider to proofread this document, occasional misspellings and typographical errors may still be present Due to the previous pandemic, and the use of personal protective equipment (PPE) This may decrease voice recognition accuracy Inadvertent lathe set up operator errors may occur 12/05/2023 Type 2 [...] minimum of 6 months The most recent [place] [employer] clinical endocrinologists and [place] [employer] end[employer]in[employer] guidelines recommend patients who [...] track activity level. Consider using apps like [employer], myfitBillettopal, lose it, stick as needed for self-monitoring and weight management. Consider group exercises. Consider hiring a seeing eye dog trainer. Regular exercise is marcos to sustainable health [...] counseling and psychiatry and Dr Tavarez at [facility] [employer] We would like to cover regular topics [...] software and direct typing Please excuse inadvertent lathe set up operator or typing errors, or uncorrected word substitutions Although every attempt has been made by the provider to proofread this document, occasional misspellings and typographical errors may still be present Due to the previous pandemic, and the use of personal protective equipment (PPE) This may decrease voice recognition accuracy Inadvertent lathe set up operator errors may occur 12/05/2023 Graves' disease [...] minimum of 6 months The most recent [place] [employer] of clinical endocrinologists and [place] [employer] end[employer]in[employer] guidelines recommend patients who [...] track activity level. Consider using apps like [employer], myfitnesspal, lose it, stick as needed for self-monitoring and weight management. Consider group exercises. Consider hiring a seeing eye dog trainer. Regular exercise is marcos to sustainable health [...] counseling and psychiatry and Dr Tavarez at [facility] We would like to cover regular topics [...] software and direct typing Please excuse inadvertent lathe set up operator or typing errors, or uncorrected word substitutions Although every attempt has been made by the provider to proofread this document, occasional misspellings and typographical errors may still be present Due to the previous pandemic, and the use of personal protective equipment (PPE) This may decrease voice recognition accuracy Inadvertent lathe set up operator errors may occur 12/05/2023 Essential (primary) [...] minimum of 6 months The most recent [place] [employer] of clinical endocrinologists and [place] [employer] end[employer]in[employer] guidelines recommend patients who [...] track activity level. Consider using apps like [employer], TrabajoPanelpal, lose it, stick as needed for self-monitoring and weight management. Consider group exercises. Consider hiring a seeing eye dog trainer. Regular exercise is marcos to sustainable health [...] counseling and psychiatry and Dr Tavarez at [facility] [employer] We would like to cover regular topics [...] software and direct typing Please excuse inadvertent lathe set up operator or typing errors, or uncorrected word substitutions Although every attempt has been made by the provider to proofread this document, occasional misspellings and typographical errors may still be present Due to the previous pandemic, and the use of personal protective equipment (PPE) This may decrease voice recognition accuracy Inadvertent lathe set up operator errors may occur PLAN OF TREATMENT No Information Insurance Providers Payer Name Payer Address Payer Phone Subscriber Number Group Number Insured Name Patient Relationship to Insured Coverage Start Date Coverage End Date [facility] [address] [place] [address] [id number] Selam Aggarwal Self - patient is the insured 2 MEDICAL (GENERAL) HISTORY Medical History History ICD Code high blood pressure hemorrhoids blood clots anemia skin diseases thyroid disease headache weight gain/loss anxiety depression hearing loss vision loss fractures/broken bones Hospitalization History Reason Date(Month/Year) Anaphylaxis response to TB antigen
--- OUTSIDE RECORDS SUMMARY | 2024-11-10 08:36 | XMS_ITS ---
Author Organization [facility] Address [address] [place] [address] Care Team Providers Care Operations Research Director Name Role Phone TitaBradly Primary Care Provider Delmy Payne Unavailable Unavailable Medications Medication SIG (Take, Route, Frequency, Duration) Notes Start Date End Date Status Slow-Mag 71.5-119 MG 2 tablets Orally Once a day 03/29/2023 Active Vitamin B Complex - as directed Orally 03/29/2023 Active Iron 325 (65 Fe) MG 1 tablet Orally Three times a Week 03/29/2023 Active Calcium 1000 + D 1000-20 MG-MCG 1 tablet with a meal Orally Once a day 03/29/2023 Active Selenium 200 MCG 1 tablet Orally Once a day 03/29/2023 Active Propranolol HCl 10 MG Oral for 90 Days Not-Taking Desipramine HCl 25 MG Oral for 30 Days Not-Taking methylPREDNISolone 4 MG TAKE 6 TABLETS ON DAY 1 DIRECTED ON PACKAGE AND DECREASE BY 1 TAB EACH DAY FOR A TOTAL OF 6 DAYS Oral for 6 Days Not-Taking Naproxen 500 MG Oral for 10 Days Not-Taking Paxlovid (300/100) 20 x 150 MG & 10 x 100MG Oral for 5 Days Not-T aking Omeprazole 20 MG TAKE 1 CAPSULE BY MOUTH TWICE DAILY Oral for 30 Days Not-Taking Amitriptyline HCl 10 MG TAKE 1 TABLET BY MOUTH DAILY AT BEDTIME Oral for 30 Days Not-Taking Sertraline HCl 25 MG Oral for 30 Days Not-Taking Amitriptyline HCl 10 MG 1 tablet at bedtime Orally Once a day for 30 days 06/12/2023 Active metroNIDAZOLE 500 MG Oral for 7 Days Not-Taking Ondansetron HCl 4 MG 1 tablet Oral q6h prn nausea for 10 days Active Lidocaine Pain Relief 4 % APPLY 1 PATCH TOPICALLY TO THE SKIN DAILY FOR 5 DAYS NEEDED FOR PAIN External for 5 Days Active valACYclovir HCl 1 GM Oral for 3 Days Active GE-Pkdnos-Sftsewsu-Scopo jennifer 16.2 MG/5ML Oral for 5 Days elixir Active Fluconazole 150 MG TAKE 1 TABLET BY MOUTH 1 TIME Oral for 1 Days Not-Taking Famotidine 40 MG 1 tab for hiatal hernia Oral for 90 days Sujit's Active Promethazine HCl 25 MG TAKE 1 TABLET BY MOUTH EVERY 6 HOURS NEEDED FOR NAUSEA OR VOMITING Oral for 15 Days Active Acetaminophen Extra Strength 500 MG TAKE 1 TABLET BY MOUTH EVERY 4 HOURS NEEDED FOR MILD PAIN Oral for 10 Days Active diazePAM 5 MG 1 tablet as needed Oral Once a day for 1 days muscle spasms, 3/month Active methIMAzole 5 MG 1 tablet Oral Once a day for 90 days Grave's Disease Active Diclofenac Potassium 50 MG 1 tablet with food or milk as needed Oral Twice a day for 30 days Active Lidocaine 5 % 1 patch remove after 12 hours External Once a day for 30 days Active Cyclobenzaprine HCl 5 MG 1 tablet at bedtime as needed Oral Once a day for 15 days uses 4-5/week Active Diclofenac Sodium 1 % External for 7 Days Active predniSONE 10 MG 1 tablet as needed Oral twice daily for 15 days for angioedema (x 5-6 yrs) Active Kgxeathnfe-IFVS-Byykeufo 50-325-40 MG Oral for 30 Days Active Vital Signs Blood pressure systolic 145 mm Hg 06/12/20 23 Blood pressure diastolic 96 mm Hg 023 Heart Rate 69 /min 06/12/2023 Height 61.5 in 06/12/2023 Weight 235.3 lbs 06/12/2023 BMI 43.73 kg/m2 06/12/2023 Weight-kg 106.73 kg 06/12/2023 Encounters Encounter Location Date Provider Diagnosis [facility] [address] [place] [address] 06/12/2023 Bradly Rivers Chronic post-traumat ic headache, not intractable G44.329 and Tinnitus, bilateral H93.13 Assessments Encounter Date Diagnosis (ICD Code) Assessment Notes Treatment Notes Treatment Clinical Notes Section Notes 06/12/2023 Chronic post-traumatic headache, not intractable (ICD-10 - G44.329) 06/12/2023 Tinnitus, bilateral (ICD-10 - H93.13) Plan Of Treatment Medication Medication Name Sig Start Date Stop Date Notes Amitriptyline HCl 10 MG 1 tablet at bedt modesta Orally Once a day for 30 days 06/12/2023 Next Appt Details Follow Up: 6 Weeks, Reason: Progress Notes * Chata HAMPTONOB: 2 (54 yo F)Acc No.[id number]:06/12/2023 Progress Notes Patient:?Selam HAMPTON Provider:?Bradly Rivers MD :1970???Age:52 Y???Sex:Female D ate:06/12/2023 Address:[address] [place], [place] [id number] Subjective: * Chief Complaints: * ??? * Medical History:? * Medications:?Taking Calcium 1000 + D 1000-20 MG-MCG Tablet 1 tablet with a meal Orally Once a day , Taking Selenium 200 MCG Tablet 1 tablet Orally Once a day , Taking Iron 325 (65 Fe) MG Tablet 1 tablet Orally Three times a Week , Taking Slow-Mag 71.5-119 MG Tablet Delayed Release 2 tablets Orally Once a day , Taking Vitamin B Complex - Capsule as directed Orally , Taking Eyeqdbxywg-XKXZ-Vqszwlnc 50-325-40 MG Tablet Oral , Taking Diclofenac Potassium 50 MG Tablet 1 tablet with food or milk as needed Oral Twice a day , Taking Lidocaine 5 % Patch 1 patch remove after 12 hours External Once a day , Taking Cyclobenzaprine HCl 5 MG Tablet 1 tablet at bedtime as needed Oral Once a day uses 4-5/week, Taking Diclofenac Sodium 1 % Gel External , Taking predniSONE 10 MG Tablet 1 tablet as needed Oral twice daily for angioedema (x 5-6 yrs), Taking methIMAzole 5 MG Tablet 1 tablet Oral Once a day Grave's Disease, Taking Acetaminophen Extra Strength 500 MG Tablet TAKE 1 TABLET BY MOUTH EVERY 4 HOURS NEEDED FOR MILD PAIN Oral , Taking diazePAM 5 MG Tablet 1 tablet as needed Oral Once a day muscle spasms, 3/month, Taking Famotidine 40 MG Tablet 1 tab for hiatal hernia Oral Sujit's, Taking Promethazine HCl 25 MG Tablet TAKE 1 TABLET BY MOUTH EVERY 6 HOURS NEEDED FOR NAUSEA OR VOMITING Oral , Taking Ondansetron HCl 4 MG Tablet 1 tablet Oral q6h prn nausea , Taking Lidocaine Pain Relief 4 % Patch APPLY 1 PATCH TOPICALLY TO THE SKIN DAILY FOR 5 DAYS NEEDED FOR PAIN External , Taking valACYclovir HCl 1 GM Tablet Oral , Taking FZ-Yszuwy-Folnzeif-Scopolamine 16.2 MG/5ML Elixir Oral , Notes to Pharmacist: elixir, Not-Taking Fluconazole 150 MG Tablet TAKE 1 TABLET BY MOUTH 1 TIME Oral , Not-Taking metroNIDAZOLE 500 MG Tablet Oral , Not-Taking Omeprazole 20 MG Capsule Delayed Release TAKE 1 CAPSULE BY MOUTH TWICE DAILY Oral , Not-Taking Amitriptyline HCl 10 MG Tablet TAKE 1 TABLET BY MOUTH DAILY AT BEDTIME Oral , Not-Taking Sertraline HCl 25 MG Tablet Oral , Not-Taking Propranolol HCl 10 MG Tablet Oral , Not-Taking Desipramine HCl 25 MG Tablet Oral , Not-Taking methylPREDNISolone 4 MG Tablet Therapy Pack TAKE 6 TABLETS ON DAY 1 DIRECTED ON PACKAGE AND DECREASE BY 1 TAB EACH DAY FOR A TOTAL OF 6 DAYS Oral , Not-Taking Naproxen 500 MG Tablet Oral , Not-Taking Paxlovid (300/100) 20 x 150 MG & 10 x 100MG Tablet Therapy Pack Oral Objective: * Vitals:?BP:145/96mm Hg, HR:6 9/min, Wt:235.3lbs, Wt-k.73 kg, Ht: 61.5 in, BMI:43.73Index, Body Surface Area: 2.15. Assessment: * Assessment: 1.?Chronic post-traumatic he adache, not intractable - G44.329???2.?Tinnitus, bilateral - H93.13??? Plan: * Treatment: * Follow Up:?6 Weeks * Billing Information: * Visit Code:? 80341 OFFICE VISIT,EST PT,LEVEL 4. * Procedure Codes:? * [place], [id number] on 11/10/2024 at 08:36 AM EDT Sign off status: Pending * Provider:?Bradly Rivers MD Date:?06/01 Generated for Daniel heaton/Gloria/Maria Antonia on:?11/10/2024 08:36 AM EDT
--- OUTSIDE RECORDS SUMMARY | 2024-11-10 08:36 | XMS_ITS ---
Author Organization [facility] Address [address] [place] [address] Care Team Providers Care Cardiology Tech Name Role Phone Bradly Rivers Primary Care Provider [phone] Delmy Payne Unavailable Unavailable Encounters Encounter Location Date Provider Diagnosis [facility] [address] [place] [address] 07/25/2023 Braldy Rivers Plan Of Treatment No Information Progress Notes * Chata AGGARWALOB: 2 (54 yo F)Acc No.[id number]:07/25/2023 Progress Notes Patient:?Selam AGGARWAL Provider:?Bradly Rivers MD :1970???Age:52 Y???Sex:Female D ate:07/25/2023 Address:[address] [id number] Subjective: * Chief Complaints: * ??? * Medical History:? Objective: * Vitals:? Assessment: Plan: * Treatment: * Billing Information: * Visit Code:? * Procedure Codes:? * [place], [id number] on 11/10/2024 at 08:36 AM EDT Sign off status: Pending * Provider:?Bradly Rivers MD Date:?07/03 Generated for Daniel heaton/Gloria/eTransmitting on:?11/10/2024 08:36 AM EDT
--- OUTSIDE RECORDS SUMMARY | 2024-11-10 08:36 | XMS_ITS | Referral Summary ---
Author Organization [facility] Address [address] [place] [address] Care Team Providers Care Tool Crib Manager Name Role Phone Delmy Payne MD Primary Care Provider [phone] Encounters Date Type Department Care Team Description 09/03/2024 7:45 AM EST Follow-Up [facility] [address] [place] [id number] Seun Esteban MD Full thickness macular hole, right (Primary Dx) 08/15/2024 8:45 AM EST Follow-Up [facility] [address] [place] [address] Seun Esteban MD Full thickness macular hole, right (Primary Dx) from Last 3 Months Allergies Active Allergy Reactions Criticality Noted Date [...] to get into a tinnitus clinic at [facility]. 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 Procedure Name Priority Date/Time Associated Diagnosis Comments OCT, MACULA - OU - BOTH EYES Routine 09/03/2024 8:23 AM EST Full thickness macular hole, right OCT, MACULA - OU - BOTH EYES Routine 08/15/2024 9:07 AM EST Full thickness macular hole, right from Last 3 Months Results * Due to [place] state law, this organization might not be sharing negative HIV tests. * OCT, Retina - OU - Both Eyes (09/03/2024 8:23 AM EST) Narrative OPHTHALMOLOGY IMAGING - 09/03/2024 8:23 AM EST Hole closed, small outer retinal attenuation Seun Esteban MD OPHTH TOMOGRAPHY Final Re sult Performing Organization Address [facility] Co de Phone Number OPHTHALMOLOGY IMAGING * OCT, Retina - OU - Both Eyes (08/15/2024 9:07 AM EST) Narrative OPHTHALMOLOGY IMAGING - 08/15/2024 9:07 AM EST Hole closed Seun Esteban MD OPHTH TOMOGRAPHY Final Re sult Performing Organization Address [facility] Co de Phone Number OPHTHALMOLOGY IMAGING from Last 3 Months Insurance [facility] [employer] Advance Directives * Presumed Full Code (Latest Code Status on File) Date Activated Date Inactivated Comments 08/07/2024 9:09 AM 08/07/2024 2:06 PM Care Teams Tool Crib Manager Relationship Specialty Start Date End Date Delmy Payne MD [address] [place] [address] PCP - General Internal Medicine 05/17/23
[2024-11-10 08:39] VITALS: BP 143/76; PULSE 72; O2SAT 99; BMI 41.8
== END 2024-11-10 09:01 | disposition home or self-care (01) ==
LOC: HO.PMC 08:33
PROVIDERS: PCP Internal Medicine; Visit Provider Nurse Practitioner Family
DX: M54.16 Radiculopathy, lumbar region (principal); M53.3 Sacrococcygeal disorders, not elsewhere classified; M47.816 Spondylosis without myelopathy or radiculopathy, lumbar region; M54.50 Low back pain, unspecified
CPT/HCPCS: 99214

== ENCOUNTER → 2024-11-10 08:32 | Outpatient (BNVA) | payer OTHER, SELFPAY | PROVIDERS: PCP Internal Medicine; Visit Provider Nurse Practitioner Family ==

== ENCOUNTER 2024-11-20 06:03 | Outpatient (REF) | payer OTHER, SELFPAY ==
--- NOTE | ~2024-11-20 | FL_ITS ---
EXAMINATION: FL GUIDANCE ONLY HISTORY: M47.816 - Spondylosis without myelopathy or radiculopathy, lumbar region COMPARISON: None available. TECHNIQUE: Fluoroscopy time: 0.1 minutes. Cumulative Dose: 5.24 mGy. DAP: 0.0616 mGym2 Images: 1. FINDINGS: A single fluoroscopic spot film of the lumbar spine demonstrates needles and contrast in the regions of the bilateral L3-4, L4-5, and L5-S1 facet joints. FL/FL guidance in treatment room IMPRESSION: Fluoroscopy during procedure. Please see procedure report for additional information. Electronically signed by: Marco Montanez MD 11/20/2024 12:56 PM EDT
--- OUTSIDE RECORDS SUMMARY | 2024-11-20 06:06 | XMS_ITS ---
Author Organization [facility] Address [address] [place] [address] Care Team Providers Care Game Moderator Name Role Phone SHAWN STROUD Unavailable [phone] Medications Medication SIG (Take, Route, Fr equency, Duration) Notes Start Date End Date Status Mounjaro 2.5 MG/0.5ML 2.5mg Subcutaneous weekly for 30 days Active Encounters Encounter Location Date Provider Diagnosis [place] [id number] [address] 12/05/2023 SHAWN STROUD Morbid obesity due t o excess calories E66.01 ; BMI 40.0-44.9, adult Z68.41 ; Dietary counseling and surveillance Z71.3 ; Type 2 diabetes mellitus without complication, without long-term current use of insulin E11.9 ; Graves' disease E05.00 and Essential (primary) hypertension I10 Assessments Encounter Date Diagnosis (ICD Code) Assessment [...] minimum of 6 months The most recent [place] [employer] of clinical endocrinologists and [place] [employer] of endocrinology guidelines recommend patients who [...] track activity level. Consider using apps like One Month, myfitnesspal, lose it, stick as needed for self-monitoring and weight management. Consider group exercises. Consider hiring a regional trainer. Regular exercise is marcos to sustainable [...] counseling and psychiatry and Dr Tavarez at [facility]. We would like to cover regular topics [...] software and direct typing Please excuse inadvertent reeling machine setup operator or typing errors, or uncorrected word substitutions Although every attempt has been made by the provider to proofread this document, occasional misspellings and typographical errors may still be present Due to the previous pandemic, and the use of personal protective equipment (PPE) This may decrease voice recognition accuracy Inadvertent reeling machine setup operator errors may occur 12/05/2023 BMI 40.0-44.9, [...] minimum of 6 months The most recent [place] [employer] of clinical endocrinologists and [place] [employer] of endocrinology guidelines recommend patients who [...] track activity level. Consider using apps like One Month, myfitnesspal, lose it, stick as needed for self-monitoring and weight management. Consider group exercises. Consider hiring a regional trainer. Regular exercise is marcos to sustainable [...] counseling and psychiatry and Dr Tavarez at [facility]. We would like to cover regular topics [...] software and direct typing Please excuse inadvertent reeling machine setup operator or typing errors, or uncorrected word substitutions Although every attempt has been made by the provider to proofread this document, occasional misspellings and typographical errors may still be present Due to the previous pandemic, and the use of personal protective equipment (PPE) This may decrease voice recognition accuracy Inadvertent reeling machine setup operator errors may occur 12/05/2023 Dietary counseling [...] minimum of 6 months The most recent [place] [employer] of clinical endocrinologists and [place] [employer] of endocrinology guidelines recommend patients who [...] track activity level. Consider using apps like One Month, myfitnesspal, lose it, stick as needed for self-monitoring and weight management. Consider group exercises. Consider hiring a regional trainer. Regular exercise is marcos to sustainable [...] counseling and psychiatry and Dr Tavarez at [facility]. We would like to cover regular topics [...] software and direct typing Please excuse inadvertent reeling machine setup operator or typing errors, or uncorrected word substitutions Although every attempt has been made by the provider to proofread this document, occasional misspellings and typographical errors may still be present Due to the previous pandemic, and the use of personal protective equipment (PPE) This may decrease voice recognition accuracy Inadvertent reeling machine setup operator errors may occur 12/05/2023 Type 2 [...] minimum of 6 months The most recent [place] Association of clinical endocrinologists and [place] [employer] of endocrinology guidelines recommend patients who [...] track activity level. Consider using apps like One Month, [employer], lose it, stick as needed for self-monitoring and weight management. Consider group exercises. Consider hiring a regional trainer. Regular exercise is marcos to sustainable [...] counseling and psychiatry and Dr Tavarez at [facility]. We would like to cover regular topics [...] software and direct typing Please excuse inadvertent reeling machine setup operator or typing errors, or uncorrected word substitutions Although every attempt has been made by the provider to proofread this document, occasional misspellings and typographical errors may still be present Due to the previous pandemic, and the use of personal protective equipment (PPE) This may decrease voice recognition accuracy Inadvertent reeling machine setup operator errors may occur 12/05/2023 Graves' disease [...] minimum of 6 months The most recent [place] Association of clinical endocrinologists and [place] [employer] of endocrinology guidelines recommend patients who [...] track activity level. Consider using apps like One Month, [employer], lose it, stick as needed for self-monitoring and weight management. Consider group exercises. Consider hiring a regional trainer. Regular exercise is marcos to sustainable [...] counseling and psychiatry and Dr Tavarez at [facility]. We would like to cover regular topics [...] software and direct typing Please excuse inadvertent reeling machine setup operator or typing errors, or uncorrected word substitutions Although every attempt has been made by the provider to proofread this document, occasional misspellings and typographical errors may still be present Due to the previous pandemic, and the use of personal protective equipment (PPE) This may decrease voice recognition accuracy Inadvertent reeling machine setup operator errors may occur 12/05/2023 Essential (primary) [...] minimum of 6 months The most recent [place] Association of clinical endocrinologists and [place] [employer] of endocrinology guidelines recommend patients who [...] and Eat Fat Get Lean by Dr oRcco Dixon. Self education is important in the [...] track activity level. Consider using apps like One Month, [employer], lose it, stick as needed for self-monitoring and weight management. Consider group exercises. Consider hiring a regional trainer. Regular exercise is marcos to sustainable [...] counseling and psychiatry and Dr Tavarez at [facility]. We would like to cover regular topics [...] software and direct typing Please excuse inadvertent reeling machine setup operator or typing errors, or uncorrected word substitutions Although every attempt has been made by the provider to proofread this document, occasional misspellings and typographical errors may still be present Due to the previous pandemic, and the use of personal protective equipment (PPE) This may decrease voice recognition accuracy Inadvertent reeling machine setup operator errors may occur Plan Of Treatment Medication Medication Name Sig Start Date Stop Date Notes Mounjaro 2.5 MG/0.5ML 2.5mg Subcutaneous weekly for 30 days Progress Notes * Chata AGGARWALOB: 2 (54 yo F)Acc No.[id number]:12/05/2023 Patient:?Selam AGGARWAL Provider:?SHAWN STROUD NP :1970???Age:53 Y???Sex:Female D ate:12/05/2023 Address: [address] , [id number] Subjective: * Chief Complaints: * ??? * HPI: ???Constitutional:? Patient is here today for a weight [...] type II confirmed diabetes and morbid obesity [place] candidate for dual incretin therapy Patient has [employer] [facility] Insurance Per patient Tirzepitide is covered with prior auth Patient reports Pmhx of type 2DM, Graves on Methimazole, chronic Anemia followed by hematology, Glaucoma on Timolol, bilateral tinnitus, chronic pain syndrome on Duloxetine and HTN Sees endocrinology at [facility] 12/05/2023, Weight , BMI 10/15/2023: Weight 237 lbs, BMI: 44.9 Patient referred to us from friend who is a patient. 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 Non-smoker. ETOH use: Occational. * ROS:?All Other Systems:?Review of Systems (ROS)?All others negative except those mentioned in HPI.? * Medical History:? Objective: * Vitals:? * Examination: ???General Examination: ?GENERAL APPEARANCE:?in no acute distress, well developed, well nourished.?HEAD:?normocephalic, atraumatic.?EYES:?pupils equal, round, reactive to light and accommodation.?EARS:?normal.?ORAL CAVITY:?mucosa moist.?THROAT:?clear.?NECK/THYROID:?neck supple, full range of motion, no cervical lymphadenopathy.?SKIN:?no suspicious lesions, warm and dry.?HEART:?no murmurs, regular rate and rhythm, S1, S2 normal.?LUNGS:?clear to auscultation bilaterally.?ABDOMEN:?normal, bowel sounds present, soft, nontender, nondistended.?EXTREMITIES:?no clubbing, cyanosis, or edema.?NEUROLOGIC:?nonfocal, motor strength normal upper and lower extremities, sensory exam intact.? Assessment: * Assessment: 1.?Morbid obesity due to exc ess calories - E66.01 (Primary)???2.?BMI 40.0-44.9, adult - Z68.41???3.?Dietary counseling and surveillance - Z71.3???4.?Type 2 diabetes mellitus without complication, without long-term current use of insulin - E11.9???5.?Graves' disease - E05.00???6.?Essential (primary) hypertension - I10??? #Weight Management 12/05/2023 Total time spent today [...] minimum of 6 months The most recent [place] Association of clinical endocrinologists and [place] College of endocrinology guidelines recommend patients who [...] track activity level. Consider using apps like One Month, [employer], lose it, stick as needed for self-monitoring and weight management. Consider group exercises. Consider hiring a regional trainer. Regular exercise is marcos to sustainable [...] counseling and psychiatry and Dr Tavarez at [facility]. We would like to cover regular topics [...] software and direct typing Please excuse inadvertent reeling machine setup operator or typing errors, or uncorrected word substitutions Although every attempt has been made by the provider to proofread this document, occasional misspellings and typographical errors may still be present Due to the previous pandemic, and the use of personal protective equipment (PPE) This may decrease voice recognition accuracy Inadvertent reeling machine setup operator errors may occur. Plan: * Treatment: * Billing Information: * Visit Code:? * Procedure Codes:? * Electronic signature of ZOË STROUD on 11/20/2024 at 06:06 AM EDT Sign off status: Pending * Provider:?SHAWN STROUD NP Date:?2023 Generated for Daniel heaton/Gloria/Maria Antonia on:?11/20/2024 06:06 AM EDT History and Physical Notes * HPI (History [...] type II confirmed diabetes and morbid obesity [place] candidate for dual incretin therapy Patient has [employer] Insurance Per patient Tirzepitide is covered with prior auth Patient reports Pmhx of type 2DM, Graves on Methimazole, chronic Anemia followed by hematology, Glaucoma on Timolol, bilateral tinnitus, chronic pain syndrome on Duloxetine and HTN Sees endocrinology at [facility] 12/05/2023, Weight , BMI 10/15/2023: Weight 237 lbs, BMI: 44.9 Patient referred to us from friend who is a patient. 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
--- OUTSIDE RECORDS SUMMARY | 2024-11-20 06:06 | XMS_ITS | Encounter Summary ---
Author Organization [facility] Address [address] [place] [address] Care Team Providers Care Felt Hat Inspector And Packer Name Role Phone Geoffrey Payne MD Primary Care Provider Encounter Details Date Type Department Care Team (Late st Contact Info) Description 06/09/2024 Scanned Document [facility] [address] [place] [phone] Alexis Lawton MD [address] [place] [address] Social History Tobacco Use Types Packs/Day Years Used Date Smoking Tobacco: Never Smokeless Tobacco: Never Alcohol Use Standard Drinks/Week Comments Yes 0 (1 standard drink = 0.6 oz pur e alcohol) SOCIAL [place] of Occupat ional Health - Occupational Stress [...] AM EDT Procedure visit [facility] [address] [facility] [address] [place] [address] Alexis Lawton MD [address] [facility] [address] [place] [address] 04/16/2025 8:20 AM EDT Office Visit [facility] [place] 7 [facility] [address] [place] [phone] Lenore De La Torre, LOGAN 7 [facility] [address] [place] [phone] documented as of this encounter Visit Diagnoses Not on filedocumented in this encounter Care Teams Felt Hat Inspector And Packer Relationship Specialty Start Date End Date Geoffrey Payne MD [address] [place] [address] PCP - General 04/03/23 documented as of this encounter
--- OUTSIDE RECORDS SUMMARY | 2024-11-20 06:06 | XMS_ITS | Clinical Summary ---
Author Organization [facility] Address [address] [place] [id number] Care Team Providers Care Manager Winter Name Role Phone Delmy Payne MD Primary Care Provider [phone] Allergies Active Allergy Reactions Criticality Noted Date [...] to get into a tinnitus clinic at [facility]. At this time, we would most likely [...] Team Description 09/03/2024 7:45 AM EST Follow-Up [facility] at [address] [address] Seun Esteban MD Full thickness macular hole, [...] Info) Description 12/10/2024 7:45 AM EDT Follow-Up [facility] at [address] [address] Seun Esteban MD [address] [place] [address] 12/25/2024 7:45 AM EDT Clinical Support [address] [address] 12/25/2024 8:00 AM EDT Follow-Up [address] [address] Sharri Mac MD [address] [place] [address] Health Maintenance Due Date Last Done Comments [...] 07/12/2006, 02/09/2006, 01/08/2006 Procedures * Due to [place] [employer] law, this organization might not be sharing negative HIV tests. Procedure Name Priority Date/Time Associated Diagnosis Comments OCT, MACULA - OU - BOTH EYES Routine 09/03/2024 8:23 AM EST Full thickness macular hole, right from Last 3 Months Results * Due to [place] [employer] law, this organization might not be sharing negative HIV tests. * OCT, Retina - OU - Both Eyes (09/03/2024 8:23 AM EST) Narrative OPHTHALMOLOGY IMAGING - 09/03/2024 8:23 AM EST Hole closed, small outer retinal attenuation us Seun Esteban MD OPHTH TOMOGRAPHY Final Re sult OPHTHALMOLOGY IMAGING from Last 3 Months Insurance [facility] [employer] [place] [address] Advance Directives * Presumed Full Code (Latest Code Status on File) Date Activated Date Inactivated Comments 08/07/2024 9:09 AM 08/07/2024 2:06 PM Care Teams Manager Winter Relationship Specialty Start Date End Date Delmy Payne MD [address] [place] [address] PCP - General Internal Medicine 05/17/23
--- OUTSIDE RECORDS SUMMARY | 2024-11-20 06:06 | XMS_ITS | Encounter Summary ---
Author Organization [facility] Address [address] [place] [address] Care Team Providers Care Medical Imaging Technologist Name Role Phone Geoffrey Payne MD Primary Care Provider [phone] Reason for Visit * Reason Comments Appointment Encounter Details Date Type Department Care Team ([facility] st Contact Info) Description 08/08/2023 Telephone [facility] [address] [place] [address] Kathy Pond MD [address] [place] [address] Appointment Social History Tobacco Use Types Packs/Day Years Used Date Smoking Tobacco: Never Smokeless Tobacco: Never Alcohol Use Standard Drinks/Week Comments Yes 0 (1 standard drink = 0.6 oz pur e alcohol) SOCIAL [place] of Occupat ional Health - Occupational Stress [...] AM EDT Procedure visit [facility] [address] [place] [address] Alexis Lawton MD [address] [facility] [address] [place], [place] [address] 04/16/2025 8:20 AM EDT Office Visit [facility] Medical Weight Loss [place] 7 [facility] [address] [place] [phone] Lenore De La Torre APRN 7 [facility] [address] [place] [phone] documented as of this encounter Visit Diagnoses Not on filedocumented in this encounter Care Teams Medical Imaging Technologist Relationship Specialty Start Date End Date Geoffrey Payne MD [address] [place] [address] PCP - General 04/03/23 documented as of this encounter
--- OUTSIDE RECORDS SUMMARY | 2024-11-20 06:06 | XMS_ITS | Referral Summary ---
Author Organization [facility] Address [address] [place] [address] Care Team Providers Care Court Specialist Name Role Phone Delmy Payne MD Primary Care Provider [phone] Encounters Date Type Department Care Team Description 09/03/2024 7:45 AM EST Follow-Up [facility] at [facility] [address] [place] [address] Seun Esteban MD Full thickness macular hole, [...] to get into a tinnitus clinic at [facility]. At this time, we would most likely [...] Info) Description 12/10/2024 7:45 AM EDT Follow-Up [facility] at [address] [address] Seun Esteban MD [address] [place] [address] 12/25/2024 7:45 AM EDT Clinical Support [address] [address] 12/25/2024 8:00 AM EDT Follow-Up [address] [address] Sharri Mac MD [address] [place] [address] Procedures * Due to [place] [employer] law, this organization might not be sharing negative HIV tests. Procedure Name Priority Date/Time Associated Diagnosis Comments OCT, MACULA - OU - BOTH EYES Routine 09/03/2024 8:23 AM EST Full thickness macular hole, right from Last 3 Months Results * Due to [place] law, this organization might not be sharing negative HIV tests. * OCT, Retina - OU - Both Eyes (09/03/2024 8:23 AM EST) Narrative OPHTHALMOLOGY IMAGING - 09/03/2024 8:23 AM EST Hole closed, small outer retinal attenuation us Seun Esteban MD OPHTH TOMOGRAPHY Final Re sult OPHTHALMOLOGY IMAGING from Last 3 Months Insurance [facility] [employer] Advance Directives * Presumed Full Code (Latest Code Status on File) Date Activated Date Inactivated Comments 08/07/2024 9:09 AM 08/07/2024 2:[address] Specialist Relationship Specialty Start Date End Date Delmy Payne MD [address] [place] [address] PCP - General Internal Medicine 05/17/23
--- OUTSIDE RECORDS SUMMARY | 2024-11-20 06:06 | XMS_ITS | Clinical Summary ---
Author Organization [facility] Building Address [address] [place] [address] Phone Care Team Providers Care Ride Attendant Name Role Phone Delmy Payne MD Primary Care Provider [phone] Allergies Active Allergy Reactions Criticality Noted Date [...] (05/13/2024): Normal barium swallow examination 01/15/[address] [facility] Berkowitz at 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 Allergic rhinitis 09/07/2005 Encounters Date Type Department Care Team Description 11/19/2024 1:50 PM EDT Office Visit Gastroenterology - [address] [place] [address] Coretta Max, HYDROTECHNICAL SPECIALIST Slow transit constipation (Primary Dx) 11/04/2024 10:00 AM EDT Office Visit General Surgery [facility] [address] [facility] [address] [place] [phone] Judith Abdullahi MD Mastalgia (Primary Dx) 10/29/2024 Telephone Gastroenterology - [address] [facility] [address] [facility] [address] [place] [phone] Amberly Berkowitz MD Provider Call Back 10/14/2024 2:49 PM EDT - 10/14/2024 11:59 PM EDT Hospital Encounter Radiology Department - [address] [phone] Abnormal mammogram Discharge Disposition: Home or Self Care 10/14/2024 2:43 PM EDT - 10/14/2024 11:59 PM EDT Hospital Encounter Radiology Department - [address] [phone] Abnormal mammogram Discharge Disposition: Home or Self Care 10/13/2024 Telephone General Surgery - [place] [address] [facility] [address] [place] [phone] Judith Abdullahi MD Forms/questionnaires 10/08/2024 7:29 AM EDT - 10/08/2024 11:59 PM EDT Hospital Encounter Radiology Department - [address] [phone] Encounter for screening mammogram for breast cancer Discharge Disposition: Home or Self Care 10/03/2024 8:00 AM EDT Consult Rehabilitation Medicine - [place] [address] [place] [phone] Lizet Paredes MD Sciatica, left side from Last 3 Months Immunizations Name Administration Dates Next Due Hepatitis B (Sswsang-H-Pxeky , Recombivax HB-Adult) 19yo and older 07/12/2006,02/09/2006,01/08/2006 [...] - Inhaled Oxygen Concentration - - Weight 100 kg (221 lb) 11/19/2024 1:55 PM EDT Height 156.2 cm (5' 1.5 ) 11/19/2024 1:55 PM EDT Body Mass Index 41.08 11/19/2024 1:55 PM EDT Plan of Treatment Upcoming Encounters Date Type Department Care Team (Late st Contact Info) Description 12/08/2024 8:30 AM EDT Office Visit Rheumatology - [place] [address] [place] [phone] Olga Gill MD [address] [place] [address] 10/12/2025 7:30 AM EDT Appointment Radiology Department - [address] [phone] Health Maintenance Due Date Last Done Comments [...] mammography. Return to annual mammography. Mammo Location: [facility], [address] [place] [address], [address], . -------- FINAL REPORT -------- Dictated By: Karen Hansen Dictated Date: 10/14/2024 15:01 ET Assigned Physician: Karen Hansen Reviewed and Electronically Signed By: Karen Hansen Signed Date: 10/14/2024 15:20 ET Workstation ID: [id number] Transcribed By: Self Edit Transcribed Date: 10/14/2024 [...] mammography. Return to annual mammography. Mammo Location: [facility], [address] [place] [address], [address], . -------- FINAL REPORT -------- Dictated By: Karen Hansen Dictated Date: 10/14/2024 15:01 ET Assigned Physician: Karen Hansen Reviewed and Electronically Signed By: Karen Hansen Signed Date: 10/14/2024 15:20 ET Workstation ID: [id number] Transcribed By: Self Edit Transcribed Date: 10/14/2024 15:20 ET us Sofia Elmore CN IMG US PROCEDURES Final Res ult * [...] mammography. Return to annual mammography. Mammo Location: [facility], [address] [place] [address], [address], . -------- FINAL REPORT -------- Dictated By: Karen Hansen Dictated Date: 10/14/2024 15:01 ET Assigned Physician: Karen Hansen Reviewed and Electronically Signed By: Karen Hansen Signed Date: 10/14/2024 15:20 ET Workstation ID: [id number] Transcribed By: Self Edit Transcribed Date: 10/14/2024 [...] mammography. Return to annual mammography. Mammo Location: [facility], [address] [place] [address], [address], . -------- FINAL REPORT -------- Dictated By: Karen Hansen Dictated Date: 10/14/2024 15:01 ET Assigned Physician: Karen Hansen Reviewed and Electronically Signed By: Karen Hansen Signed Date: 10/14/2024 15:20 ET Workstation ID: [id number] Transcribed By: Self Edit Transcribed Date: 10/14/2024 15:20 ET Sofia Howe Amanueltressa CNM IMG BI PROCEDURES Final Res ult [...] recommended for the Left Breast. Mammo Location: [facility], [address] [place] [address], [address], . -------- FINAL REPORT -------- Dictated By: Zari Cox Dictated Date: 10/08/2024 10:20 ET Assigned Physician: Zari Cox Reviewed and Electronically Signed By: Zari Cox Signed Date: 10/08/2024 10:48 ET Workstation ID: [id number] Transcribed By: Self Edit Transcribed Date: 10/08/2024 [...] is recommended forthe Left Breast. Mammo Location: [facility], [address] [place] [address], [address], . -------- FINAL REPORT -------- Dictated By: Zari Cox Dictated Date: 10/08/2024 10:20 ET Assigned Physician: Zari Cox Reviewed and Electronically Signed By: Zari Cox Signed Date: 10/08/2024 10:48 ET Workstation ID: [id number] Transcribed By: Self Edit Transcribed Date: 10/08/2024 10:20 ET us Sofia Elmore CNM IMG BI PROCEDURES Final Res ult * External Colonoscopy Report (07/21/2024 4:19 PM EST) Anatomical Region Laterality Modality Endoscopy Historical Provider GI~PROCEDURE ORDERABLES F inal Result * Annual BMP Blood Test (10/08/2023) Annual BMP Blood Test abstracted Historical Provider HEALTH MAINTENANCE Final Result * HIV Screening (04/11/2022) HIV Screening abstracted Historical Provider HEALTH MAINTENANCE Final Result * Pap smear (01/21/2018) 01/21/2018 Narrative HISTORICAL TESTING LAB RESULTING AGENCY - 01/24/2018 10:50 AM EDT [id number] THINPREP PAP, IMAGED: NEGATIVE FOR SQUAMOUS INTRAEPITHELIAL LESION AND MALIGNANCY ??. RESULT OF APTIMA HIGH RISK HPV ASSAY: ? NEGATIVE ?? (SEROTYPES 16,18,31,33,35,39,45,51,52,56,58,59,66,68) ELKE MOREIRA(ASCP) (CASE ELECTRONICALLY SIGNED 01 24 2018) ADEQUACY: SATISFACTORY. ENDOCERVICAL/TRANSFORMATION ZONE COMPONENT PRESENT. SOURCE: THINPREP PAP HPV ANY DX: ??REFLEX 16 AND 18, CERVICAL, IMAGED: CLINICAL INFORMATION: HPV ANY DIAGNOSIS. Z12.4, Z01.419 Luz Carroll MD LAB CYTOLOGY ORDERABLES Final R esult HISTORICAL TESTING LAB RESULTING AGENCY from Last 3 Months or Most Recently Relevant to Health Maintenance Insurance [facility] Care Teams Ride Attendant Relationship Specialty Start Date End Date Delmy Payne MD [address] [place] [address] PCP - General Internal Medicine 11/24/20
--- OUTSIDE RECORDS SUMMARY | 2024-11-20 06:06 | XMS_ITS | Data Portability ---
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 available Not available Not available 07/09/2024 48882 RxNorm Gina Galiciaenden null, [place] [facility] 5 13:10:19 255366 ranitidin e Not available Not available Not available Not available 07/09/2024 9143 RxNorm Gina Mussenden null, [place] [facility] 5 13:10:43 204598 Substance with sulfonami de structure and antibacte rial mechanism of action (substanc e) medicatio n Not available Not available Not available 07/09/2024 47453 8003 SNOMED Gina Higueraen null, [place] [facility] 5 13:10:52 [id number] purified protein derivativ e of tuberculi n medicatio n Not available Not available Not available 07/09/2024 8948 RxNorm Gina Sullivan null, [place] [facility] 5 13:11:02 625450 azithromy ike medicatio n Not available Not available Not available 07/09/2024 50322 RxNorm Gina Sullivan null, [place] [facility] 5 13:11:10 918540 duloxetin e medicatio n Not available Not available Not available 07/09/2024 03174 RxNorm iGna Sullivan null, [place] - [place] [facility] 5 13:11:16 084962 erythromy ike medicatio n Not available Not available Not available 07/09/2024 4053 RxNorm [facility] [place], [place] [facility] [place] [facility] 5 13:11:25 556510 nickel sulfate Not available Not available Not available Not available 08/28/20242014 35926 RxNorm React ion: Other (See Comme nts), [...] comme nts)S kin Irrit ation Not Available [facility] 5 13:59:35 955776 honey bee venom environme nt Not available Not available Not available 08/28/20242014 89463 7 RxNorm React ion: Anaph ylaxi s, sever ity: Unkno wn Not Available [facility] 5 13:59:36 Medications Name Sig Start Date Stop [...] IN ONE DAY NEEDED FOR ANGIOEDEM A 11/19 completed Not Available Not Available Not Available cetirizine 10 mg tablet TAKE 1 TABLET BY MOUTH TWICE A DAY active Not Available Not Available No t Available indapamide 2.5 mg tablet TAKE 1 TABLET BY MOUTH EVERY DAY IN THE MORNING active Not Available Not Available No t Available ibuprofen 800 mg tablet TAKE 1 TABLET BY MOUTH EVERY 8 HOURS FOR 10 DAYS 11/19 completed Not Available Not Available Not Available Lidocaine Viscous 2 % mucosal solution TAKE 5 ML EVERY 4 TO 6 HOURS (PAIN) FOR 5 DAYS YOU MAY SWISH FOR 30 SECONDS AND SWALLOW OR SPIT 11/19 completed Not Available Not Available Not Available ofloxacin 0.3 % eye drops INSTILL 1 DROP TO EYE(S) 6 TIMES PER DAY FOR 2 DAYS THEN TAKE 1 DROP 4 TIMES PER DAY FOR 5 DAYS. 11/19 completed Not Available Not Available Not Available fluconazole 150 mg tablet TAKE 1 TABLET BY MOUTH FOR 1 DAY,MAY REPEAT DOSE IF SYMPTOMS PERSIST IN 72 HOURS active Not Available Not Available No t Available ketotifen 0.025 % (0.035 %) eye drops INSTILL 1 DROP INTO BOTH EYES 2 TIMES A DAY. 11/19 completed Not Available Not Available Not Available meloxicam 15 mg tablet TAKE 1 TABLET BY MOUTH ONCE DAILY IF NEEDED FOR MODERATE PAIN (SCIATICA , BODY PAIN) 07/14 completed Not Available Not Available Not Available carbamazepi ne ER 100 mg tablet,exte nded release,12 hr TAKE 1 TABLET BY MOUTH EVERY 12 HOURS 07/14 completed Not Available Not Available Not Available FreeStyle Lancets 28 gauge 100 COUNT USE TO TEST BLOOD SUGAR ONCE DAILY E11.9 active Not Available Not Available No t Available ondansetron HCl 4 mg tablet TAKE 1 TABLET BY MOUTH EVERY 8 HOURS 07/14 completed Not Available Not Available Not Available prednisone 20 mg tablet take 2 tablets by mouth once daily for 4 days 11/19 completed Not Available Not Available Not Available phenobarb-h yoscy-atrop ine-scop 16.2 mg-0.1037 mg-0.0194 mg/5 mL elixir Take by mouth. active Not Available Not Available No t Available phenytoin sodium extended 100 mg capsule Take 1 capsule (100 mg total) by mouth 3 (three) times a day. active Not Available Not Available No t Available tramadol 50 mg tablet TAKE 1 TABLET BY MOUTH EVERY 6 (SIX) HOURS IF NEEDED FOR SEVERE PAIN. MAX DAILY AMOUNT: 200 MG active Not Available Not Available No t Available ketorolac 0.5 % eye drops INSTILL 1 DROP INTO THE RIGHT EYE 4 TIMES A DAY. 11/19 completed Not Available Not Available Not Available cyclopentol ate 1 % eye drops INSTILL 1 DROP INTO THE RIGHT EYE DAILY. active Not Available Not Available No t Available amoxicillin 875 mg tablet TAKE 1 TABLET BY MOUTH TWICE A DAY FOR 7 DAYS 07/14 completed Not Available Not Available Not Available famotidine 20 mg tablet 0 Refills, [employer] , 01/12/20 9:01:00 EDT 2019 active Not Available Not Available Not Avai lable prednisolon e acetate 1 % eye drops,suspe nsion INSTILL 1 DROP INTO THE RIGHT EYE 4 TIMES A DAY. active Not Available Not Available No t Available diazepam 2 mg tablet TAKE 1 TABLET [...] THE SKIN DAILY NEEDED FOR MODERATE PAIN 11/19 completed Not Available Not Available Not Available ibuprofen 400 mg tablet 2019 active Not Available Not Available Not Avai lable pseudoephed rine ER 240 mg tablet,exte nded release 24 hr Take 1 tablet by mouth every morning. 2017 active Not Available Not Available Not Avai lable indapamide 1.25 mg tablet TAKE 1 TABLET BY MOUTH EVERY DAY IN THE MORNING 11/12 completed Not Available Not Available Not Available diclofenac potassium 50 mg tablet TAKE 1 TABLET BY MOUTH TWICE DAILY NEEDED FOR MODERATE PAIN active Not Available Not Available No t Available methimazole 5 mg tablet Take 1 tablet (5 mg total) by mouth daily. active Not Available Not Available No t Available norethindro ne acetate 5 mg tablet TAKE 2 TABLETS BY MOUTH TWICE A DAY active Not [...] bromide 42 mcg (0.06 %) nasal spray [place] 2 sprays 3 times a day by intranasa l route as needed. 2024 active Not Available Not Available Not Avai lable metformin ER 500 mg tablet,exte nded release 24 hr TAKE 1 TABLET BY MOUTH EVERY MORNING WITH BREAKFAST . 07/14 completed Not Available Not Available Not Available dicyclomine 10 mg capsule TAKE 1 CAPSULE BY MOUTH FOUR TIMES DAILY BEFORE MEALS AND AT BEDTIME FOR ABDOMINAL PAIN 2021 active Not Available Not Available Not Avai lable amoxicillin 875 mg-potassiu m clavulanate 125 mg tablet TAKE 1 TABLET BY MOUTH EVERY 12 HOURS FOR 7 DAYS 2024 active Not Available Not Available Not Avai [...] completed Not Available Not Available Not Available lactulose 10 gram/15 mL oral solution TAKE 30 ML (20 G) BY MOUTH TWICE A DAY 11/19 completed Not Available Not Available Not Available pregabalin 50 mg capsule TAKE 1 CAPSULE BY MOUTH THREE TIMES A DAY 07/14 completed Not Available Not Available Not Available pregabalin 75 mg capsule TAKE 1 CAPSULE ORALLY 2 TIMES A DAY FOR PAIN FOR 30 DAYS 07/14 completed Not Available Not Available Not Available FreeStyle Lite Meter kit USE TO TEST BLOOD SUGAR ONCE DAILY active Not Available Not Available No t Available FreeStyle Lite Strips 100 COUNT USE TO TEST BLOOD SUGAR ONCE DAILY E11.9 active Not Available Not Available No t Available diclofenac 1 % topical gel APPLY [...] 2nd Gen Pen Needle 32 gauge x /32 TO USE DAILY WITH PEN DEVICE active Not Available Not Available No t Available prednisolon e 1 %-moxifloxa ike 0.5 % eye drops,suspe nsion 11/19 completed Not Available Not Available Not Available Paxlovid 300 mg (150 mg x 2)-100 mg tablets in a dose pack TAKE 3 TABLETS BY MOUTH TWICE A DAY FOR 5 DAYS 07/14 completed Not Available Not Available Not Available Mounjaro 2.5 mg/0.5 mL subcutaneou s pen injector INJECT 1 PEN (2.5 MG) SUBCUTANE OUSLY ONE TIME PER WEEK active Not Available Not Available No t Available Vitals Date Recorded Body weight Body mass index (BMI) Body height Provider Name and Address Organization Details Last Updated DateTime 07/14/2024 180015.25 g 43.5 kg/m2 154.94 cm Gina Sullivan [facility] 07/14/2024 13:56:19 Date Recorded Body height Body mass index (BMI) Body weight Body temperature Oxygen saturation Oxygen saturation in Arterial blood by Pulse oximetry Heart rate Systolic blood pressure Diastolic blood pressure Provider Name and Address Organization Details Last Updated DateTime 154.94 cm 41.4 kg/m2 71366.7 3 g 97.6 [degF] 97 % 97 % 68 /min 130 mm[Hg] 82 mm[Hg] Gina Sullivan [facility] 08:59:41 Date Recorded Body height Body mass index (BMI) Body weight Respiratory rate Provider Name and Address Organization Details Last Updated DateTime 11/19/2024 154.94 cm 41.4 kg/m2 23504.73 g 12 /min Gina Sullivan [facility] 11/19/2024 08:01:23 Social History Question Answer Notes LastModified by [employer] ion Details LastModified Time Tobacco Smoking Status Never Smoker Gina Sullivan [facility] 07/09/2024 13:13:35 Alcohol Use Rare kmussenden Information [...] SNOMED-CT Code Diagnosis ICD10 Code Diagnosis Note [id number] Marjorie Schwartz MD [facility]_ IMMUN_[address] [address] 07/14/2024 11:15:00 07/16/2024 15:05:40 Perennial allergic rhinitis with seasonal variation 194624176 J30.89 J30.2 Idiopathic urticaria 422 23178 L50.1 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,3 galactose 794173636 T78.1XXA [id number] Marjorie Schwartz MD [facility] [address] 11/12/2024 08:52:41 11/17/2024 14:14:13 Perennial allergic rhinitis with seasonal variation 774390947 J30.89 J30.2 Idiopathic urticaria 422 48596 L50.1 Neck swelling 308836539 R22.1 Lymphadenopathy 31094490 R59.1 Adverse re action to drug 69738989 T50.905A History of asthma 654107 007 Z87.09 [id number] MD ELKE Izquierdo_[facility]_ IMMUN_[address] [address] 11/19/2024 08:00:32 11/19/2024 15:27:03 Neck swelling 226856017 R22.1 Idiopathic urticaria 422 83378 L50.1 Adverse re action to drug 34492555 T50.905A Lymphadenopathy 27650668 R59.1 Perennial allergic rhinitis with seasonal variation 201771629 J30.89 J30.2 Streptococ nubia infectious disease 51470757 B95.0 Health Concerns Section Related Observation LastModified by Organization Detai ls LastModified Time None Recorded Concern Status LastModified by Organization Details LastModified Time None Recorded Advance Directives Directive None Recorded Payers Insurance Date Sequence Insurance Name Policy Number Policy Burkett Covered Member ID Burkett Member ID Guarantor Name 11/17/[address] [place] [address] [id number] Selam Aggarwal [id number] Selam Aggarwal Notes Date Note Type Note [...] A video telemedicine conference was performed via [employer]. Total time spent reviewing records, encounter, coordinating care: 31 minutes Patient Location: Her home Provider Location: [facility] Office Dear Dr. Payne,? ? ?I had [...] hydrocortisone OTC. She has not seen a property insurance claims examiner in [facility], so she does not have a Rx [...] food or latex allergies. Marjorie Schwartz MD [address] [place] [address], [address], [place], [address], [place] [facility] 09/15/2024 09:48:35 11/12/2024 text/html Dear Dr. Payne,? ? ?I had the pleasure of seeing Selam Aggarwal at [facility] for an unplanned visit. I typically follow her for allergic rhinitis, chronic idiopathic urticaria/angioedema (CIU) or [...] derm in awhile and was using OTC hydorcortisone PRN. She also reported that with 1 [...] office for allergy skin testing which was positive to dust mites only. Her lab tests showed a normal tryptase level at 4, the histamine release assay was still pending and the wrong alpha gal test was performed. I could not explain her worsening symptoms lately from an allergy perspective, and she could not take a nasal steroid due to glaucoma, so I recommended she try Astepro nasal spray.I then saw her via telemed on 07/14/24, at which time she felt Astepro was helping her nasal symptoms, and taking Benadryl PRN 2x for mild angioedema had worked for her. She had not gotten her labs done, but her prior histamine release assay had been negative at <16%. I recommended she restart Zyrtec BID. She comes in today for an unplanned/sick visit due to angioedema flare up. She is also due for a follow-up appointment.? ? ?She called earlier this week reporting that she had been having a flare up of her angioedema since last week. She started Monjaro and increased her BP med (indapamide) ~1 month ago. She has had a headache ~2 days after her injections of Monarjo. This past week, she did not have the headache, but did have the neck pain and swollen lymph nodes. The swelling didn't start until ~6 days after. She did inject yesterday and has not had a flare up/worsening of her symptoms. Then last week, she felt she was getting a cold (throat irritation and felt off). Then the next day, she had pain in neck with swollen lymph nodes. She started to feel a bit better. Then she had swelling of the bottom of her face. She feels it is still swollen, but it is less in the morning and swells more in the evening. The swelling comes and goes. The pharmacist thinks that the Monjaro is causing the swelling. She did go to endo, and no cause was found. She saw UC and they thought she had Strep A, since strep test in office was negative, and gave her antibiotics. However, she didn't end up taking the antibiotics, because the facial swelling worsened prior to starting this. She read that you should not take Monjaro and indapamide together.She denies any SOB with this swelling. She denies any hives/itching with her swelling. The neck pain only came 1 day, but has not reoccurred after the first dose of Benadryl she took.She did take Benadryl 4 tabs (children's ODT), then the next morning she took Zyrtec 2 tabs BID, Pepcid 20mg BID, Benadryl (adult) 2 three times yesterday but did not take Benadryl yet today. Her swelling has gone down somewhat. She still has lymph node pain under her jaw, or something else? Therefore, she wonders if she is having an allergic reaction to something or what is causing her symptoms? Her thinks it is from her drinking a glass of wine at Mother's Day, but Selam reports she does not drink much.She is not sure what is causing her symptoms? She will be seeing the doctor that is prescribing Monjaro tomorrow. Of note, she has had swollen lymph nodes prior to all of this, due to another medication. However, her lymph nodes that are swollen currently are in a different spot. Prior to this past week, she was taking 2 Zyrtec at night for allergies that she has been taking for ~1 year.She would like a refill of her nasal spray (ipratropium). Otherwise, she has had a few episodes of tongue swelling that were mild. She takes Benadryl and prednisone, and typically 1 dose resolves it as long as she takes it right away. She has not needed to go to the ER for any episodes since her last visit. She reports that she did do her labs, but I do not see results so will try to find them if done. Patient has no other questions/concerns for today's visit. ? ? ?Allergy/Immunology History:? ? ?Initial visitwith Dr. Schwartz (allergy) was 05/28/24.I reviewed 10 pages of notes/referral from [facility] for reported h/o angioedema. ?ARC:She has had allergies since teenage years, for [...] D. Farinae; all other allergens tested were negative. Dermatographism testing: Negative.Intradermal Skin Testing: pt declined [...] to be occurring less frequently.? ? ?Labs: 05/28/24:Tryptase?<11.0 mcg/L 4.8HISTAMINE RELEASE (CHRONIC URTICARIA)<16 % <16 ?Alpha gal:She reports that a doctor thinks she may have alpha gal. She reports that her swelling started after being at a BBQ and she does think that it caused the start of her swelling the first time. She is not sure how to be tested to this.? ? ?Lab 4Alpha Galactosidase, S?0.074 - 0.457 U/L 0.236Interpretation ? W monie test for alpha gal was done, so may consider doing correct test if patient wants. She hasGrave? s :as an autoimmune condition and possibly others. She sees rheumatology, but no clear diagnoses has been found.? ? ?She hadasthma:as a teenager. She attributes it to having a dog at that time and her allergies were bad at that time. She denies asthma as an adult.? ? ?She haseczema:It has been worse lately. She uses hydrocortisone OTC. She has not [facility] claims [facility], so she does not have a Rx currently.? ? ?Hymenoptera all:She reports that with 1 sting from a bee, she was stung on her neck and developed localized swelling, felt she had trouble breathing, and was sick for 1 week afterwards.? ? ?She haspropranololavailabl e for PRN tachycardia for Grave? s , but she does not typically need it.? ? ?Shedeniesany food or latex allergies. ALLERGIES:? Bee Venom Anaphylaxis? Copper Anaphylaxis? Zolpidem Other (See Comments) and Nausea And Vomiting? Other reaction(s): OTHER, Other (see comments)Passed out & vomited uncontroably? ? ?Other reaction(s): Other (see comments), Other (See Comments), vomitingOther reaction(s): OTHER, Other (see comments)Passed out & vomited uncontroablyOther reaction(s): OTHER, Other (see comments)Passed out & vomited uncontroablyOther reaction(s): Other (see comments), Other (See Comments), vomitingOther reaction(s): OTHER, Other (see comments)Passed out & vomited uncontroably? Cyclosporine Other (See Comments)? Other reaction(s): rodríguez eyes? Amlodipine Other (See Comments)? Per pt had excessive swelling and got blood clot on legPer pt had excessive swelling and got blood clot on legPer pt had excessive swelling and got blood clot on leg? Gabapentin Other (See Comments)? Other reaction(s): Other (see comments)Other reaction(s): Other (see comments)? Lidocaine Viscous Hcl ? Other reaction(s): lung pain? Nickel Other (See Comments)? Other reaction(s): Other (see comments)Skin IrritationOther reaction(s): Other (see comments), Other (See Comments)Other reaction(s): Other (see comments)Skin IrritationOther reaction(s): Other (see comments)Skin IrritationOther reaction(s): Other (see comments), Other (See Comments)Other reaction(s): Other (see comments)Skin Irritation? Pantoprazole Other (See Comments)? Other reaction(s): Other (see comments)GI problemsOther reaction(s): Other (see comments), Other (See Comments)Other reaction(s): Other (see comments)GI problemsOther reaction(s): Other (see comments)GI problemsOther reaction(s): Other (see comments), Other (See Comments)Other reaction(s): Other (see comments)GI problems? Ranitidine Other (See Comments)? Other reaction(s): Dizzy spells, Joint painGI pain, vision problems,Other reaction(s): Dizzy spells, Joint pain, Other (see comments), Other (See Comments)Other reaction(s): Dizzy spells, Joint painGI pain, vision problems,? Sulfa Antibiotics ? ? ?sulfa eye drops? Tuberculin Purified Protein Derivative ? Anaphylactic reaction; aplisol type? Azithromycin Other (See Comments) and Rash? Other reaction(s): Gastritis, Other (see comments)Other reaction(s): Other (see comments), Other (See Comments), rashOther reaction(s): Gastritis, Other (see comments)Other reaction(s): Gastritis, Other (see comments)Other reaction(s): Other (see comments), Other (See Comments), rashOther reaction(s): Gastritis, Other (see comments)? Duloxetine Palpitations? Erythromycin Other (See Comments) and Rash? Other reaction(s): Other (see comments), Other (See Comments)Other reaction(s): Other (see comments), Other (See Comments)? ? ?FAMILY HISTORY:? Asthma Mother ? Allergic rhinitis Mother ? Diabetes Father ? Heart disease Brother ? Asthma Maternal Grandmother ? Allergic rhinitis Maternal Grandmother ? Sarcoidosis Cousin ? Sarcoidosis Cousin ? Crohn's disease Cousin ? Eczema Son ? Asthma Son ? Allergic rhinitis Son ? Asthma Son ? Allergic rhinitis Son ? Eczema Daughter ? Asthma Daughter ? Allergic rhinitis Daughter ? Asthma Grandchild ? hospitalized 2x in 2023No one else in the family known to have asthma, allergic rhinitis, eczema, drug allergies, food allergies, immunodeficiency, autoimmune disease, cystic fibrosis, cancer, or heart disease.? ? ?ENVIRONMENTAL/SOCI AL HISTORY:Reviewed today and no significant changes noted. Her duaghter got a dog, but she only sees it a few times per week, not every day.She has bio kids and stepkids (all in 20s or older). One child . 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 Nonsmoker, rare social alcohol drinker, without exposure to toxic dusts, chemicals, or fumes. Her house since 2021 has gas fired heat with air purifiers and central air conditioning. There are no humidifiers, dehumidifiers, vaporizers, pets, feathers, vermin, or cockroaches. She sleeps on an encased foam mattress (2023) with synthetic pillows. There is carpeting in the bedroom and throughout the home. Marjorie Schwartz MD [address] [place] [address], [address], [place], [address], [place] [facility] 11/13/2024 09:33:30 11/19/2024 text/html TELEHEALTH (Vide o and Audio) The [...] A video telemedicine conference was performed via [employer]. Total time spent reviewing records, encounter, coordinating care: 17 minutes Patient Location: Her home Provider Location: [facility] Office Dear Dr. Payne,? ? ?I had the pleasure of seeing Selam Aggarwal at [facility] for follow-up after her unplanned visit last week. I typically follow her for allergic rhinitis, chronic idiopathic urticaria/angioedema (CIU) or [...] derm in awhile and was using OTC hydorcortisone PRN. She also reported that with 1 [...] office for allergy skin testing which was positive to dust mites only. Her lab tests showed a normal tryptase level at 4, the histamine release assay was still pending and the wrong alpha gal test was performed. I could not explain her worsening symptoms lately from an allergy perspective, and she could not take a nasal steroid due to glaucoma, so I recommended she try Astepro nasal spray.I then saw her via telemed on 07/14/24, at which time she felt Astepro was helping her nasal symptoms, and taking Benadryl PRN 2x for mild angioedema had worked for her. She had not gotten her labs done, but her prior histamine release assay had been negative at <16%. I recommended she restart Zyrtec BID.I then saw her on 11/12/24, at which time she thought she was having a flare up of her angioedema since the week prior, but when she was seen her description of her symptoms was not c/w typical angioedema. She reported throat irritation, followed by neck pain, lymph node swelling, and then swelling of the bottom of her face. The swelling comes/goes but is worse in the evenings. She reports that thought she had Strep A and Rx'd antibiotics but she had not taken them because the facial swelling had worsened prior to her taking it. She denies SOB and the neck pain only lasted 1 day and has not reoccurred. She was taking high dose antihistamines as I had recommended for her CIU for the past 1-2 days. I did not think that this was due to CIU, and given shotty LAD, I thought it was more likely due to a viral/infectious cause. She had started Monjaro ~1 month prior, but she did not have increased symptoms with injection of this medication the day prior to her visit, and I did not think this was due to an allergic reaction to this or other medications she was taking. She was going to be seeing her obesity provider the following day. She is being seen today for follow-up.? ? ?Her face is back to normal. She is not having swelling anymore. She reports that she did in fact have group A strep, so she ended up taking the antibiotics she had been prescribed and is feeling better. Yesterday was the first day without any neck pain. Her glands below her cheeks are slightly swollen still on the left but improving and not painful anymore. She is finishing her antibiotic course today or tomorrow. She is feeling much better now. She did decrease her allergy/CIU meds (down to Zyrtec 1 tab BID) after finding out that she did have Strep A and her symptoms were not due to angioedema. She feels every time she goes outside with flowering plants right near her door, she feels she has more allergy symptoms (nasal congestion, sniffling, itchy eyes, and clearing her throat). Therefore, she has increased her Zyrtec back to 2 tabs BID last night/today due to allergy symptoms. She is continuing on her current weight loss meds, as she now realizes that her facial swelling was not due to this. She reports that her thyroid meds will be adjusted due to abnormal labs. Patient has no other questions/concerns for today's visit. ? ? ?Allergy/Immunology History:? ? ?Initial visitwith Dr. Schwartz (allergy) was 05/28/24.I reviewed 10 pages of notes/referral from [facility] for reported h/o angioedema. ?ARC:She has had allergies since teenage years, for [...] D. Farinae; all other allergens tested were negative. Dermatographism testing: Negative.Intradermal Skin Testing: pt declined [...] to be occurring less frequently.? ? ?Labs: 05/28/24:Tryptase?<11.0 mcg/L 4.8HISTAMINE RELEASE (CHRONIC URTICARIA)<16 % <16 ?Alpha gal:She reports that a doctor thinks she may have alpha gal. She reports that her swelling started after being at a BBQ and she does think that it caused the start of her swelling the first time. She is not sure how to be tested to this.? ? ?Lab 4Alpha Galactosidase, S?0.074 - 0.457 U/L 0.236Interpretation ? W monie test for alpha gal was done, so may consider doing correct test if patient wants. She hasGrave? s :as an autoimmune condition and possibly others. She sees rheumatology, but no clear diagnoses has been found.? ? ?She hadasthma:as a teenager. She attributes it to having a dog at that time and her allergies were bad at that time. She denies asthma as an adult.? ? ?She haseczema:It has been worse lately. She uses hydrocortisone OTC. She has not seen a property insurance claims examiner in [facility], so she does not have a Rx currently.? ? ?Hymenoptera all:She reports that with 1 sting from a bee, she was stung on her neck and developed localized swelling, felt she had trouble breathing, and was sick for 1 week afterwards.? ? ?She haspropranololavailabl e for PRN tachycardia for Grave? s , but she does not typically need it.? ? ?Shedeniesany food or latex allergies. ALLERGIES:? Bee Venom Anaphylaxis? Copper Anaphylaxis? Zolpidem Other (See Comments) and Nausea And Vomiting? Other reaction(s): OTHER, Other (see comments)Passed out & vomited uncontroably? ? ?Other reaction(s): Other (see comments), Other (See Comments), vomitingOther reaction(s): OTHER, Other (see comments)Passed out & vomited uncontroablyOther reaction(s): OTHER, Other (see comments)Passed out & vomited uncontroablyOther reaction(s): Other (see comments), Other (See Comments), vomitingOther reaction(s): OTHER, Other (see comments)Passed out & vomited uncontroably? Cyclosporine Other (See Comments)? Other reaction(s): rodríguez eyes? Amlodipine Other (See Comments)? Per pt had excessive swelling and got blood clot on legPer pt had excessive swelling and got blood clot on legPer pt had excessive swelling and got blood clot on leg? Gabapentin Other (See Comments)? Other reaction(s): Other (see comments)Other reaction(s): Other (see comments)? Lidocaine Viscous Hcl ? Other reaction(s): lung pain? Nickel Other (See Comments)? Other reaction(s): Other (see comments)Skin IrritationOther reaction(s): Other (see comments), Other (See Comments)Other reaction(s): Other (see comments)Skin IrritationOther reaction(s): Other (see comments)Skin IrritationOther reaction(s): Other (see comments), Other (See Comments)Other reaction(s): Other (see comments)Skin Irritation? Pantoprazole Other (See Comments)? Other reaction(s): Other (see comments)GI problemsOther reaction(s): Other (see comments), Other (See Comments)Other reaction(s): Other (see comments)GI problemsOther reaction(s): Other (see comments)GI problemsOther reaction(s): Other (see comments), Other (See Comments)Other reaction(s): Other (see comments)GI problems? Ranitidine Other (See Comments)? Other reaction(s): Dizzy spells, Joint painGI pain, vision problems,Other reaction(s): Dizzy spells, Joint pain, Other (see comments), Other (See Comments)Other reaction(s): Dizzy spells, Joint painGI pain, vision problems,? Sulfa Antibiotics ? ? ?sulfa eye drops? Tuberculin Purified Protein Derivative ? Anaphylactic reaction; aplisol type? Azithromycin Other (See Comments) and Rash? Other reaction(s): Gastritis, Other (see comments)Other reaction(s): Other (see comments), Other (See Comments), rashOther reaction(s): Gastritis, Other (see comments)Other reaction(s): Gastritis, Other (see comments)Other reaction(s): Other (see comments), Other (See Comments), rashOther reaction(s): Gastritis, Other (see comments)? Duloxetine Palpitations? Erythromycin Other (See Comments) and Rash? Other reaction(s): Other (see comments), Other (See Comments)Other reaction(s): Other (see comments), Other (See Comments)? ? ?FAMILY HISTORY:? Asthma Mother ? Allergic rhinitis Mother ? Diabetes Father ? Heart disease Brother ? Asthma Maternal Grandmother ? Allergic rhinitis Maternal Grandmother ? Sarcoidosis Cousin ? Sarcoidosis Cousin ? Crohn's disease Cousin ? Eczema Son ? Asthma Son ? Allergic rhinitis Son ? Asthma Son ? Allergic rhinitis Son ? Eczema Daughter ? Asthma Daughter ? Allergic rhinitis Daughter ? Asthma Grandchild ? hospitalized 2x in 2023No one else in the family known to have asthma, allergic rhinitis, eczema, drug allergies, food allergies, immunodeficiency, autoimmune disease, cystic fibrosis, cancer, or heart disease.? ? ?ENVIRONMENTAL/SOCI AL HISTORY:Reviewed today and no significant changes noted.Her daughter got a dog, but she only sees it a few times per week, not every day.She has bio kids and stepkids (all in 20s or older). One child . 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 Nonsmoker, rare social alcohol drinker, without exposure to toxic dusts, chemicals, or fumes. Her house since 2021 has gas fired heat with air purifiers and central air conditioning. There are no humidifiers, dehumidifiers, vaporizers, pets, feathers, vermin, or cockroaches. She sleeps on an encased foam mattress (2023) with synthetic pillows. There is carpeting in the bedroom and throughout the home. Marjorie Schwartz MD [address] [place] [address], [address], [place], [address], [place] [facility] [place] [facility] [place] 11/19/2024 08:40:11 OBGyn Episode No OBEpisode recorded.
--- OUTSIDE RECORDS SUMMARY | 2024-11-20 06:06 | XMS_ITS | Encounter Summary ---
Author Organization [facility] Address [address] [place] [id number] Care Team Providers Care Internal Medicine Nurse Name Role Phone Delmy Payne MD Primary Care Provider [phone] Encounter Details Date Type Department Care Team (Late st Contact Info) Description 08/02/2024 Ophth Exam [facility] [address] [place] [phone] Indira Sanchez MD [address] [place] [id number] Social History Tobacco Use Types Packs/Day Years [...] Info) Description 12/10/2024 7:45 AM EDT Follow-Up [facility] at [address] [id number] Seun Esteban MD [address] [place] [id number] 12/25/2024 7:45 AM EDT Clinical Support [facility] [address] [place] [address] 12/25/2024 8:00 AM EDT Follow-Up [address] [address] Sharri Mac MD [address] [place] [id number] documented as of this encounter Visit Diagnoses Not on filedocumented in this encounter Care Teams Internal Medicine Nurse Relationship Specialty Start Date End Date Delmy Payne MD [address] [place] [address] PCP - General Internal Medicine 05/17/23 documented as of this encounter
--- OUTSIDE RECORDS SUMMARY | 2024-11-20 06:06 | XMS_ITS ---
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 Spondylosis without myelopathy or radiculopathy, 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, cervical region [facility] 06/29/2023 Ambulatory Spondylosis without myelopathy or radiculopathy, 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, cervical region [facility] 06/26/2023 Ambulatory Spondylosis without myelopathy or radiculopathy, 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, cervical region [facility] 06/22/2023 Ambulatory Injections Injections [facility] 06/05/2023 Ambulatory Spondylosis without myelopathy or radiculopathy, lumbar region Spondylosis without myelopathy or radiculopathy, lumbar region [facility] 06/05/2023 Ambulatory Spondylosis without myelopathy or radiculopathy, 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, cervical region [facility] 06/05/2023 Ambulatory Injections Injections [facility] 05/30/2023 Ambulatory Bilateral primary osteoarthritis of knee Bilateral primary osteoarthritis of knee [facility] 05/15/2023 Ambulatory Injury Injury [facility] 05/01/2023 Ambulatory Bilateral primary osteoarthritis of knee Bilateral primary osteoarthritis of knee [facility] 04/03/2023 Ambulatory Trochanteric bursitis, left hip Trochanteric bursitis, left hip [facility] 04/03/2023 Ambulatory Tinnitus, bilateral [facility] 12/15/2022 Care Team Organization Name Specialty Phone Email Start Date End Da te [facility] 10/17/2024 [facility] 05/15/2024 [facility] 05/13/2024 [facility] Hilda, [facility] Primary [facility] 04/03/2023 04/03/2023 [facility] 04/03/2023 [facility] 12/15/2022 12/15/2022 [facility] 12/15/2022
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
--- OUTSIDE RECORDS SUMMARY | 2024-11-20 06:07 | XMS_ITS | Encounter Summary ---
Author Organization [facility] [place] [address] Care Team Providers Care Commodities Trader Name Role Phone Delmy Payne MD Primary Care Provider [phone] Encounter Details Date Type Department Care Team (Late st Contact Info) Description 11/19/2024 1:50 PM EDT Office Visit Gastroenterology - [address] [place] [phone] Coretta Max NP [address] [place] [address] Slow transit constipation (Primary Dx) Social History Tobacco Use Types Packs/Day Years Used Date Smoking Tobacco: Never Smokeless Tobacco: Never Alcohol Use Standard Drinks/Week Comments Yes 0 (1 standard drink = 0.6 oz pur e alcohol) Comments Unknown Sex and Gender Information Value Date Recorded Sex Assigned at Not on file Legal Sex Female 12:44 AM EST Gender Identity Not on file Sexual Orientation Not on file documented as of this encounter Last Filed Vital Signs Vital Sign Reading Time Taken Comments Blood Pressure - - Pulse - - Temperature - - Respiratory Rate - - Oxygen Saturation - - Inhaled Oxygen Concentration - - Weight 100 kg (221 lb) 11/19/2024 1:55 PM EDT Height 156.2 cm (5' 1.5 ) 11/19/2024 1:55 PM EDT Body Mass Index 41.08 11/19/2024 1:55 PM EDT documented in this encounter Progress Notes * Coretta Max NP - 11/19/2024 1:50 PM EDT CHIEF COMPLAINT: No chief complaint on file. DATE OF LAST GASTROENTEROLOGY PROCEDURES: 07/2024 Colonoscopy negative Recall 5 yrs HPI: Selam Aggarwal is a 54 y.o. old female who was originally referred to us by Delmy Payne MD now presents to the gastroenterology department today stating that she is now having constipation for the past two months. Typically has 1-2 stools daily, now going up to 3-4 days without a BM. Tried dried fruits and fleet enemas. Patient states she had increased her fiber intake prior to this. No bleeding. Colonoscpy in July was negative. She started Mounjaro 5 weeks ago but feels the constipation started before the Mounjaro. She cannot tolerate the taste of Miralax and wont take it. She has lactulose which works but causes lots of gas. ROS: GENERAL: No malaise, significant weight loss or fever HEENT: No changes in hearing or vision or swallowing problems RESPIRATORY: No cough, wheezing or shortness of breath CARDIOVASCULAR: No chest pain, leg swelling or palpitations GI: See H&P The remainder of the review of systems is reviewed and negative. PAST MEDICAL HISTORY: Past Medical History: Diagnosis Date Eczema DX:Eczema Fatty liver 01/13/2016 Graves disease DX:Graves disease Hyperthyroidism DX:Hyperthyroidism Kidney stone DX:Kidney stone Macular hole DX:Macular hole;COMMENT:Right eye Post concussive syndrome DX:Post concussive syndrome Tinnitus, bilateral DX:Tinnitus, bilateral PAST SURGICAL HISTORY: Past Surgical History: Procedure Laterality Date TUBAL LIGATION 2008 PROCEDURE:TUBAL LIGATION SOCIAL HISTORY: Social History Tobacco Use Smoking status: Never Smokeless tobacco: Never Substance Use Topics Alcohol use: Yes FAMILY HISTORY: Father with polyps Paternal uncle with CRC ACTIVE MEDICATIONS: Current Outpatient Medications Medication Sig Dispense Refill b complex vitamins capsule Take by mouth. CALCIUM CARBONATE-VITAMIN D3 ORAL Take 2 tablets by mouth. cetirizine (ZyrTEC) 10 mg tablet Take 1 tablet (10 mg total) by mouth 2 (two) times a day. cetirizine (ZyrTEC) 5 mg chewable tablet Chew 1 tablet (5 mg total) 1 (one) time each day. cholecalciferol (VITAMIN D-3) 50 mcg (2,000 unit) capsule Take by mouth. clotrimazole-betamethasone (LOTRISONE) 1-0.05 % cream apply SPARINGLY to affected area twice a day for UP TO 2 WEEKS cyclobenzaprine (FLEXERIL) 5 mg tablet Take 1 tablet (5 mg total) by mouth at bedtime as needed formuscle spasms (or back pain.). diazePAM (VALIUM) 2 mg tablet 0 Refills, Maintenance, 01/12/20 9:01:00 EDT diclofenac (CATAFLAM) 50 mg tablet Take 1 tablet (50 mg total) by mouth 2 (two) times a day if needed. diclofenac (VOLTAREN) 1 % topical gel Apply 4 g topically 4 (four) times a day. EPINEPHrine (EPIPEN) 0.3 mg/0.3 mL injection Inject 0.3 mL (0.3 mg total) into the thigh if needed for anaphylaxis. famotidine (PEPCID) 20 mg tablet 0 Refills, Maintenance, 01/12/20 9:01:00 EDT ferrous sulfate 325 mg (65 mg elemental iron) tablet Iron, Refills 0, Maintenance, 09/17/19 8:23:00EDT, Supply ibuprofen (ADVIL,MOTRIN) 400 mg tablet indapamide (LOZOL) 2.5 mg tablet ipratropium (ATROVENT) 42 mcg (0.06 %) nasal spray Administer 1 spray into affected nostril(s). lactulose (CHRONULAC) solution Take 30 mL (20 g total) by mouth 2 (two) times a day. 1800 mL 0 lidocaine (LIDODERM) 5 % patch Apply 1 patch topically 1 (one) time each day. No longer than 12 hours in any 24 hour period MAGNESIUM ASPARTATE HCL ORAL Take 1,230 mg by mouth. meloxicam (MOBIC) 15 mg tablet TAKE 1 TABLET BY MOUTH ONCE DAILY IF NEEDED FOR MODERATE PAIN (SCIATICA, BODY PAIN) 30 tablet 1 methIMAzole (TAPAZOLE) 5 mg tablet Take 1 tablet (5 mg total) by mouth 1 (one) time each day. methocarbamoL (ROBAXIN) 500 mg tablet Take 1 tablet (500 mg total) by mouth 3 (three) times a day if needed for muscle spasms ((back spasm).). 90 each 1 methylPREDNISolone (MEDROL) 4 mg tablet TAKE 6 TABLETS ON DAY 1 DIRECTED ON PACKAGE AND DECREASEBY 1 TAB EACH DAY FOR A TOTAL OF 6 DAYS naloxone (NARCAN) 4 mg/0.1 mL nasal spray ADMINISTER 1 SPRAY INTO ONE NOSTRIL NEEDED. CALL 911. REPEAT AFTER 2-3 MIN IF NO/MINIMAL RESPONSE AQJAriwbjosng-yjmpaljiyfe-acdufecx-scopoloamine () 16.2-0.1037 -0.0194 mg/5 mL elixir Take by mouth. predniSONE (DELTASONE) 20 mg tablet Take 0.5 tablets (10 mg total) by mouth 1 (one) time each day. For 4 days pseudoephedrine ER (SUDAFED) 240 mg tablet extended release 24 hr 24 Hour tablet Take 1 tablet (240mg total) by mouth 1 (one) time each day in the morning. scopolamine (TRANSDERM-SCOP) 1 mg over 3 days patch 3 day 1 patch every 3 (three) days. timoloL (BETIMOL) 0.25 % ophthalmic solution 1-2 drops 2 (two) times a day. traMADoL (ULTRAM) 50 mg tablet Take 1 tablet (50 mg total) by mouth every 6 (six) hours if needed for severe pain. Max Daily Amount: 200 mg 15 tablet 0 Mounjaro weekl (new 5 weeks ago) ALLERGIES: Allergies Allergen Reactions Bee Venom Protein (Honey Bee) Anaphylaxis Copper Anaphylaxis Zolpidem Nausea And Vomiting Other Reaction(s): Other (See Comments) Other reaction(s): [...] (see comments) Passed out & vomited uncontroably Amlodipine Other Reaction(s): Other (See Comments) Per pt had excessive swelling and got blood clot on leg Per pt had excessive swelling and got blood clot on leg Per pt had excessive swelling and got blood clot on leg Lidocaine Hcl Other reaction(s): lung pain Nickel Other Reaction(s): Other (See Comments) Other reaction(s): Other (see comments) Skin Irritation Other reaction(s): Other (see comments), Other (See Comments) Other reaction(s): Other (see comments) Skin Irritation Other reaction(s): Other (see comments) Skin Irritation Other reaction(s): Other (see comments), Other (See Comments) Other reaction(s): Other (see comments) Skin Irritation Pantoprazole Other Reaction(s): Other (See Comments) Other reaction(s): Other (see comments) GI problems Other reaction(s): Other (see comments), Other (See Comments) Other reaction(s): Other (see comments) GI problems Other reaction(s): Other (see comments) GI problems Other reaction(s): Other (see comments), Other (See Comments) Other reaction(s): Other (see comments) GI problems Ranitidine Other Reaction(s): Other (See Comments) Other reaction(s): Dizzy spells, Joint pain GI pain, vision problems, Other reaction(s): Dizzy spells, Joint pain, Other (see comments), Other (See Comments) Other reaction(s): Dizzy spells, Joint pain GI pain, vision problems, Sulfa (Sulfonamide Antibiotics) sulfa eye drops Tuberculin, Purified Protein Derivative Anaphylactic reaction; aplisol type Azithromycin Rash Other Reaction(s): Other (See Comments) Other reaction(s): Gastritis, Other (see comments) Other reaction(s): Other (see comments), Other (See Comments), rash Other reaction(s): Gastritis, Other (see comments) Other reaction(s): Gastritis, Other (see comments) Other reaction(s): Other (see comments), Other (See Comments), rash Other reaction(s): Gastritis, Other (see comments) Erythromycin Rash Other Reaction(s): Other (See Comments) Other reaction(s): Other (see comments), Other (See Comments) Other reaction(s): Other (see comments), Other (See Comments) PHYSICAL EXAM: Visit Vitals Ht 1.562 m (61.5 ) Wt 100 kg (221 lb) BMI 41.08 kg/m?? Smoking Status Never BSA 1.98 m?? APPEARANCE: Alert and in no acute distress EYES: PERRLA, conjunctiva and sclera normal. ABDOMEN: nontender without masses NEURO: Awake, alert and oriented x 3 Assessment & Plan Slow transit constipation Options discussed Lactulose daily Prunes and hot coffee QAM MOM QHS Samples of Linzess 72 and 145 given Call if wants script Call if above not helping. Pt understands Marita is worsening her constipation I would like to thank Delmy Payne MD for the opportunity to partake in the patient's care. Board Certified Gastroenterology [facility] W [phone] [place] [address] [address] [place] [address] [email or web address] Coretta Max NP documented in this encounter Plan of Treatment Upcoming Encounters Date Type Department Care Team (Late st Contact Info) Description 12/08/2024 8:30 AM EDT Office Visit Rheumatology - [place] [address] [place] [phone] Olga Gill MD [address] [place] [address] 10/12/2025 7:30 AM EDT Appointment Radiology Department - [address] [phone] documented as of this encounter Visit Diagnoses Diagnosis Slow transit constipation- Primary documented in this encounter Care Teams Commodities Trader Relationship Specialty Start Date End Date Delmy Payne MD [address] [place] [address] PCP - General Internal Medicine 11/24/20 documented as of this encounter
--- OUTSIDE RECORDS SUMMARY | 2024-11-20 06:07 | XMS_ITS ---
Author Organization [facility] Address [address] [place] [address] Care Team Providers Care Osteopathic Physician Name Role Phone Bradly Rivers Primary Care Provider Delmy Payne Unavailable Unavailable Encounters Encounter Location Date Provider Diagnosis [facility] [address] [place] [address] 07/25/2023 Bradly Rivers Plan Of Treatment No Information Progress Notes * Chata AGGARWALOB: 2 (54 yo F)Acc No.[id number]:07/25/2023 Progress Notes Patient:?Selam AGGARWAL Provider:?Bradly Rivers MD :1970???Age:52 Y???Sex:Female D ate:07/25/2023 Address:[address] [id number] Subjective: * Chief Complaints: * ??? * Medical History:? Objective: * Vitals:? Assessment: Plan: * Treatment: * Billing Information: * Visit Code:? * Procedure Codes:? * Electronic [place], [id number] on 11/20/2024 at 06:07 AM EDT Sign off status: Pending * Provider:?Bradly Rivers MD Date:?07/03 Generated for Daniel heaton/Gloria/eTransmitting on:?11/20/2024 06:07 AM EDT
--- OUTSIDE RECORDS SUMMARY | 2024-11-20 06:07 | XMS_ITS | Clinical Summary ---
Author Organization [facility] Address [address] [place] [address] Care Team Providers Care Ed Tech Name Role Phone Geoffrey Payne MD Primary Care Provider [phone] Allergies Active Allergy Reactions Criticality Noted Date [...] NEEDED FOR NAUSEA OR VOMITING 3 Active PHENobarbital-h yoscyamine-atro pine-scopolamin e () elixir Take by mouth. Activ e [...] Take 1 capsule by mouth. 3 Active methylPREDNISol one (MEDROL DOSEPAK) 4 MG tablet TAKE 6 [...] (800 mg total) by mouth. 2 Active HYDROcodone-cortes taminophen (NORCO) 5-325 mg per tablet Take 1 tablet by mouth. Active hydroCHLOROthia zide (MICROZIDE) 12.5 MG capsule Take 1 capsule [...] desipramine (NORPRAMIN) 25 MG tablet 3 Active cyclobenzaprine (FLEXERIL) 5 MG tablet TAKE 1 TABLET BY MOUTH DAILY AT BEDTIME NEEDED FOR BACK PAIN OR SPASM 3 Active cetirizine (ZyrTEC) 10 MG tablet Take 1 tablet (10 mg total) by mouth. Active Calcium 600-10 MG-MCG Chew Tab Chew 2 tablets. Active butalbital-acet aminophen-caffe ine (FioriCET, ESGIC) 50-325-40 mg tablet Take 1 [...] (5 mg total) by mouth. 4 Active butalbital-acet aminophen-caffe ine (Fioricet) 50-300-40 mg Cap capsule 1 capsule [...] indapamide (LOZOL) 1.25 MG tablet 4 Active fluorometholone (FML LIQUIFILM) 0.1 % ophthalmic suspension SHAKE [...] diclofenac (ZORVOLAX) 18 MG capsule Diclofenac Active Timolol-Brimon- Dorzol-Latanopr 0.5-0.15-2 -0.005% Solution Take by mouth. 4 Active cyclobenzaprine (FLEXERIL) 5 MG tablet Take 1 tablet (5 mg total) by mouth. 4 Active cyclobenzaprine (FLEXERIL) 10 MG tablet 1 tablet [...] mg total) by mouth. 4 Active metFORMIN (GLUCOPHAGE-XR) 500 MG 24 hr tabletIndicatio ns:Unintended weight gain,Obesity, Class III, BMI 40-49.9 (morbid obesity) ([facility]) Take 1 tablet (500 mg total) by mouth every morning with breakfast. 30 tablet 4 Active Insulin Pen Needle 32G X 4 MM MiscIndications :Obesity, Class III, BMI 40-49.9 (morbid obesity) ([facility]),Pre-diabe jonathon To use daily with pen device 100 pen needle 1 4 Active indapamide (LOZOL) 2.5 MG tablet 5 Active tirzepatide (MOUNJARO) 2.5 mg/0.5 mL pen-injectorInd ications:Type 2 diabetes mellitus with obesity (HCC) Inject 1 Pen (2.5 mg total) under the skin once a week. 2 mL 2 5 Active amoxicillin-cla vulanate (AUGMENTIN) 875-125 MG per tablet 1 tablet by Mouth/Oral Cavity route every 12 hours. 5 Active Active Problems No known active problems Encounters Date Type Department Care Team Description 11/13/2024 4:40 PM EDT Office Visit [facility] [place] [address] [facility] [address] [place] [phone] Lenore De La Torre APRN Obesity, Class III, BMI 40-49.9 (morbid obesity) ([facility]) (Primary Dx); Type 2 diabetes mellitus with obesity (HCC) 11/13/2024 Travel 10/28/2024 Telephone [facility] [address] [phone] Indira Duran, fast food restaurant manager Only 10/17/2024 Telephone [facility] [address] [phone] Indira Duran, RN 10/14/2024 4:00 PM EDT Office Visit [facility] [place] [address] [phone] Lenore De La Torre APRN Obesity, Class III, BMI 40-49.9 (morbid obesity) ([facility]) (Primary Dx); Type 2 diabetes mellitus with obesity (HCC) 10/14/2024 Travel from Last 3 Months Family [...] Not Answered Alcohol Use Standard Drinks/Week Comments Yes 0 (1 standard drink = 0.6 oz pur e alcohol) SOCIAL [facility] - Occupational Stress Questionnaire Answer Date Recorded Do you feel stress - tense, restless, nervous, or anxious, or unable to sleep at night because your mind is troubled all the time - these days? To some extent 11/13/2024 Physical Activity Answer Date Recorded On average, how many days pe r week do you engage in moderate to strenuous exercise (like a brisk walk)? 4 days 11/13/2024 On average, how many minutes do you exercise per day at this level? 30 min 11/13/2024 Comments Unknown Sex and Gender Information Value Date Recorded Sex Assigned at Female 04/05/2023 9:51 AM EDT Legal Sex Female 2:19 PM EDT Gender Identity Female 07/13/2023 2:56 PM EST Sexual Orientation Heterosexual (straight) 07/13 2:56 PM EST Last Filed Vital Signs Vital Sign Reading Time Taken Comments Blood Pressure 138/82 11/13/2024 4:44 PM EDT Pulse 101 11/13/2024 4:44 PM EDT Temperature 36.3 ??C (97.3 ??F) 07/13/2023 2:34 PM ES T Respiratory Rate 16 07/18/2023 9:04 AM EST Oxygen Saturation 100% 07/13/2023 2:34 PM EST Inhaled Oxygen Concentration - - Weight 101 kg (221 lb 9.6 oz) 11/13/2024 4:44 PM EDT Height 154.9 cm (5' 1 ) 11/13/2024 4:44 PM EDT Body Mass Index 41.87 11/13/2024 4:44 PM EDT Plan of Treatment Upcoming Encounters Date Type Department Care Team (Late st Contact Info) Description 01/06/2025 8:00 AM EDT [facility] [address] [place] [phone] Alexis Lawton MD [address] [place] [address] [address] [place] [address] 04/16/2025 8:20 AM EDT Office Visit [facility] [place] [address] [facility] [address] [place] [phone] Lenore De La Torre, AUTOMATIC BANDSAW TENDER [address] [facility] [address] [place] [address] Health Maintenance Due Date Last Done Comments Hepatitis C Virus Screening 1970 Creatinine with GFR 09/12/1981 Foot Exam 09/12/1981 Hemoglobin A1C 09/12/1981 Lipid Panel 09/12/1981 Ophthalmology Exam 09/12/1981 HIV Screening 09/12/1984 Microalbumin/Creatinine Ratio Urine 09/12/1989 DTaP/Tdap/Td Vaccines (1 - Tdap) 09/12/1990 Hepatitis B Vaccines (1 of 3 - 19+ 3-dose series) 08/30 Pneumococcal Vaccines 50+ (1 of 2 - PCV) 09/12/1990 Pap Smear (Ages 21-65) 09/12/1992 Mammogram 2011 Colonoscopy 09/12/2016 Zoster (Shingles) Vaccine (1 of 2) 09/12/2021 COVID-19 Vaccine (1 - season) 2024 Influenza Vaccine 01/30/2025 04/22/2017 Insurance [facility] (AUTO/LIABILITY) Advance Directives Documents on File Type Date Recorded Patient Fretted Instrument Inspector Expl anation Advance Directive-Scan 08/23/2023 fax t o htfd vernon-VTC Advance Directive-Scan 08/21/2023 HFSC FAX REQ-VTC Advance Directive-Scan 06/05/2023 PT SC RIPT Advance Directive-Scan 06/05/2023 CHECK OUT Care Teams Ed Tech Relationship Specialty Start Date End Date Geoffrey Payne MD [address] [place] [address] [facility] - General 04/03/23
--- OUTSIDE RECORDS SUMMARY | 2024-11-20 06:07 | XMS_ITS | Encounter Summary ---
Author Organization [facility] Address [address] [place] [address] Care Team Providers Care Comic Artist Name Role Phone Geoffrey Payne MD Primary Care Provider [phone] Encounter Details Date Type Department Care Team (Late st Contact Info) Description 04/27/2023 Scanned Document [facility] [address] [phone] Alexis Lawton MD [address] [facility] [address] [place] [address] Social History Tobacco Use Types Packs/Day Years [...] 8:00 AM EDT [facility] [address] [place] [address] Alexis Lawton MD [address] [address] 04/16/2025 8:20 AM EDT Office Visit [facility] [place] [address] [place] [address] Lenore De La Torre, LOGAN [address] [facility] [address] [place] [address] documented as of this encounter Visit Diagnoses Not on filedocumented in this encounter Care Teams Comic Artist Relationship Specialty Start Date End Date Geoffrey Payne MD [address] [place] [address] PCP - General 04/03/23 documented as of this encounter
--- OUTSIDE RECORDS SUMMARY | 2024-11-20 06:07 | XMS_ITS ---
Author Organization [facility] Address [address] [place] [address] Care Team Providers Care Trouble Tracer Name Role Phone TitaBradly Primary Care Provider [...] 1 GM Oral for 3 Days Active SY-Lwvudg-Hywmiawr-Scopo jennifer 16.2 MG/5ML Oral for 5 Days [...] days for angioedema (x 5-6 yrs) Active Bmrlqrbime-XHGU-Royfnwdp 50-325-40 MG Oral for 30 Days Active Vital Signs Blood pressure systolic 145 mm Hg 06/12/20 23 Blood pressure diastolic 96 mm Hg 023 Heart Rate 69 /min 06/12/2023 Height 61.5 in 06/12/2023 Weight 235.3 lbs 06/12/2023 BMI 43.73 kg/m2 06/12/2023 Weight-kg 106.73 kg 06/12/2023 Encounters Encounter [facility] Date [facility] [address] [place] [address] 06/12/2023 Braldy Rivers Chronic post-traumat ic headache, not intractable [...] * Chata HAMPTONOB: 2 (54 yo F)Acc No.[id number]:06/12/2023 Progress Notes Patient:?Selam HAMPTON Provider:?Bradly Rivers MD :1970???Age:52 Y???Sex:Female D ate:06/12/2023 Address:[address] [place], [place] [phone] Subjective: * Chief Complaints: * ??? * [...] - Capsule as directed Orally , Taking Xkncsmclct-UJHB-Sahdygje 50-325-40 MG Tablet Oral , Taking Diclofenac [...] HCl 1 GM Tablet Oral , Taking CU-Iglell-Egegockq-Scopolamine 16.2 MG/5ML Elixir Oral , Notes to [...] Weeks * Billing Information: * Visit Code:? 13324 OFFICE VISIT,EST PT,LEVEL 4. * Procedure Codes:? * Electronic [place], [id number] on 11/20/2024 at 06:06 AM EDT Sign off status: Pending * Provider:?Bradly Rivers MD Date:?06/01 Generated for Daniel heaton/Gloria/Maria Antonia on:?11/20/2024 06:06 AM EDT
--- OUTSIDE RECORDS SUMMARY | 2024-11-20 06:07 | XMS_ITS | Patient Health Record ---
Author Organization [facility] Address [address] [place] [address] Care Team Providers Care Charging Operator Name Role Phone Bradly Rivers Primary Care Provider Delmy Payne Unavailable Unavailable Allergies Allergen (clinical [...] 25 MG Oral for 30 Days Not-Taking Tuhisvcfcc-AWQM-Bobsucfr 50-325-40 MG Oral for 30 Days Active [...] 1 GM Oral for 3 Days Active ZL-Vrykfq-Fztyhgrp-Scopo jennifer 16.2 MG/5ML Oral for 5 Days [...] Status Risk Notes Problem Chronic post-traumatic headache (548854070) Chronic post-traumatic headache, not intractable (G44.329) Active confirmed Problem Bilateral tinnitus (9063484525887 ) Tinnitus, bilateral (H93.13) Active confirmed Plan Of Treatment No Information Insurance Providers Payer Name Payer Address Payer Phone Subscriber Number Group Number Insured Name Patient Relationship to Insured Coverage Start Date Coverage End Date [facility] [address] [place], [place] [id number] Selam Aggarwal [place] - [place] [address] [id number] Selam Aggarwal Self - patient is the [...] Reason Date(Month/Year) angioedema x 1 day 2018 [facility] x3 days anaphylaxis to p pd test 2017
--- OUTSIDE RECORDS SUMMARY | 2024-11-20 06:07 | XMS_ITS | Patient Health Record ---
Author Organization [facility] Address [address] [place] [phone] Care Team Providers Care Inspector Publications Name Role Phone SHAWN STROUD Unavailable [phone] Allergies Allergen (clinical drug ingredient) Drug/Non Drug Allergy documented on EMR Reaction Allergy Type Onset Date Status Substance with sulfonamide structure and antibacterial mechanism of action (substance) sulfa eye drops (uncoded) corneal abrasion Allergy Active tb antigen (uncoded) anaphylaxis Allergy Active azithromycin zithrom (uncoded) GI issues Allergy Active amlodipine Amlodipine blood clot Drug Allergy Acti ve Reason For Referral No Information Medications Medication [...] with food Orally Twice a day Active Problems Problem Type SNOMED Code ICD Code Onset Dates Problem Status W/U Status Risk Notes Problem 15302461 Essential (primary) hypertension (I10) Active confirmed Problem 094149414 BMI 40.0-44.9, adult (Z68.41) Active confirmed Problem 980339312 Type 2 diabetes mellitus without complication, without long-term current use of insulin (E11.9) Active confirmed Problem 293192015 Morbid obesity due to excess calories (E66.01) Active confirmed Assessments Encounter Date Diagnosis (ICD Code) Assessment Notes Treatment Notes Treatment Clinical Notes Section Notes 12/05/2023 #Weight Management 12/05/2023 Total time spent today [...] minimum of 6 months The most recent [place] Association of clinical endocrinologists and [place] [employer] of endocrinology guidelines recommend patients who [...] track activity level. Consider using apps like Lumierise, JumpCampal, lose it, stick as needed for self-monitoring and weight management. Consider group exercises. Consider hiring a personal protection specialist. Regular exercise is marcos to sustainable health [...] counseling and psychiatry and Dr Tavarez at [facility]. We would like to cover regular topics [...] software and direct typing Please excuse inadvertent client administrator or typing errors, or uncorrected word substitutions Although every attempt has been made by the provider to proofread this document, occasional misspellings and typographical errors may still be present Due to the previous pandemic, and the use of personal protective equipment (PPE) This may decrease voice recognition accuracy Inadvertent client administrator errors may occur Plan Of Treatment No Information Insurance Providers Payer Name Payer Address Payer Phone Subscriber Number Group Number Insured Name Patient Relationship to Insured Coverage Start Date Coverage End Date [facility] [place] [address] [place] [address] [id number] Selam Aggarwal Self - patient is the insured 2 Medical (General) History Medical History History ICD Code high blood pressure hemorrhoids blood clots anemia skin diseases thyroid disease headache weight gain/loss anxiety depression hearing loss vision loss fractures/broken bones Hospitalization History Reason Date(Month/Year) Anaphylaxis response to TB antigen
--- OUTSIDE RECORDS SUMMARY | 2024-11-20 06:07 | XMS_ITS | Clinical Summary ---
Author Organization [facility] Address [address] [place] [address] Care Team Providers Care Ice Guard Skating Rink Name Role Phone Unavailable Primary Care Provider [...] Vaccine (Season Ended) 2025 04/22/20 17 Insurance [facility]
== END 2024-11-20 06:04 | disposition home or self-care (01) ==
LOC: CF 06:03
PROVIDERS: Visit Provider Internal Medicine
DX: M47.816 Spondylosis without myelopathy or radiculopathy, lumbar region (principal)
CPT/HCPCS: 64493; 64494; J2003; J2795; Q9967

== ENCOUNTER 2024-11-20 09:08 | Outpatient (AMB) | payer OTHER, SELFPAY ==
[2024-11-20 09:22] VITALS: BP 130/76; PULSE 86; RESP 16; O2SAT 99
--- NOTE | 2024-11-20 09:22 | MHC.OFFVIS ---
Vital Signs 11/20/24 09:22 11/20/24 09:54 BP 130/76 130/84 Blood Pressure Location Lt brachial Lt brachial Position Sitting Sitting Respiration 16 16 Pulse 86 75 Pulse Source Pulse Oximeter Pulse Oximeter Pulse Oximetry (%) 99 98 Oxygen Delivery Method Room Air Room Air Intake Visit Reasons: Kenneth Dx L3-L4 DR-L5 MBB Booth Cashier Required: No Allergies azithromycin [From ZITHROMAX] Allergy (Severe, Verified 11/20/24 09:22) NAUSEA & VOMITING bee pollen [BEE STINGS] Allergy (Severe, Verified 11/20/24 09:22) ANAPHYLAXIS copper [COPPER] Allergy (Severe, Verified 11/20/24 09:22) BODY SWELLING tuberculin, purified protein deriva [TB TEST] Allergy (Severe, Verified 11/20/24 09:22) ANAPHYLAXIS zolpidem [From AMBIEN] Allergy (Severe, Verified 11/20/24 09:22) SYNCOPE nickel [NICKEL] Allergy (Mild, Verified 11/20/24 09:22) RASH pantoprazole Allergy (Unknown, Verified 11/20/24 09:22) Unknown ranitidine [From ZANTAC] Allergy (Unknown, Verified 11/20/24 09:22) SEVERE JOINT PAIN amlodipine Allergy (Verified 11/20/24 09:22) Unknown erythromycin base Adverse Reaction (Severe, Verified 11/20/24 09:22) Rash Medication List - Last Reconciled 11/20/24 by Judy Fabian LPN acetaminophen (Tylenol Extra Strength) 500 mg PO Q6H PRN diazepam 2 mg PO Q8H PRN diclofenac potassium 50 mg PO BID diclofenac sodium 1% topical dicyclomine 10 mg PO QID indapamide 1.25 mg PO DAILY lidocaine 5% (Lidoderm) 1 patch topical DAILY PRN MDD remove after 12 hours methimazole 7.5 mg (1.5 x 5 mg) PO DAILY 30 days naloxone 4 mg/actuation (Narcan) 4 mg intranasal Q2M PRN naproxen 500 mg PO BID PRN 10 days pregabalin 75 mg PO BID 30 days tirzepatide (Mounjaro) 2.5 mg subcut QWEEK tramadol 50 mg PO BID PRN 10 days HPI HPI Kenneth Dx L3-L4 DR-L5 MBB: Details: Patient presents for scheduled procedure. Denies any recent cough, cold, infection, fever or other significant changes in medical history since last office visit. [facility] Medical History Hearing loss, left Bilateral tinnitus Graves disease Alopecia Vitamin D deficiency Hyperthyroidism High cholesterol HTN (hypertension) Surgical History History of tubal ligation Family History Maternal Grandmother Hypothyroidism Social History Alcohol intake: never Patient Tobacco Use Status: Never used Tobacco Physical Exam Vital Signs: Last Vital Signs Pulse 75 11/20/24 09:54 Resp 16 11/20/24 09:54 BP 130/84 11/20/24 09:54 Pulse Ox 98 11/20/24 09:54 Oxygen Delivery Method Room Air 11/20/24 09:54 Office Procedures Details: Lumbar Medial Branch Block, Bilateral L3, L4 medial branches and L5 Dorsal Ramus (2 levels, 3 nerves) After obtaining written consent, pre-procedure blood pressure and pulse were recorded and are in the nursing record for review. The patient was placed in a prone position. The respective lumbosacral area was prepped with chloraprep and draped in sterile fashion. The skin over the target medial branch nerves was anesthetized with 0.5% lidocaine. A 22 gauge 3.5 inch needle was inserted into the target medial branch nerve under fluoroscopic guidance. No paresthesias were elicited with needle placement and aspiration was negative for blood and CSF. Next, 0.2cc of omnipaque 180 was injected to verify positioning. Next 0.5 ml 0.5% ropivicaine was injected (0.5cc total per level). The identical procedure was performed at the remaining levels. The skin was cleansed and a sterile bandage was applied. Following the procedure the patient's vital signs were stable. The patient tolerated the procedure well and no complications were encountered. Following the procedure the patient's vital signs were stable. The patient was discharged home in good condition with post-procedural instructions. Time Out: Immediately prior to the procedure, the following was verbally confirmed that there is a signed consent form and that the correct patient, planned procedure, site and side are consistent with documentation and that necessary equipment and/or blood products are available prior to the start of the case. Complications: none EBL: <5 cc 81060 - with Fluoroscopy (L3-L4) 75025 - second level with Fluoroscopy (L3-L4-L5) (bilateral) Procedure code (CPT) selection complete Assessment & Plan Assessment & Plan (1) Lumbar spondylosis: Code(s): M47.816 - Spondylosis without myelopathy or radiculopathy, lumbar region Category: Medical Plan Patient is status post bilateral L3, L4 medial branches and L5 dorsal ramus diagnostic blocks. Patient tolerated procedure well and was discharged home in stable condition with discharge instructions. All questions were answered. We will follow-up via telephone or in clinic to assess response to therapy. A follow-up appointment was made during today's visit. Orders: Orders [place] guidance in treatment room Today Jennifer Navas APRN, SUPERIOR COURT JUDGE M47.816 - Spondylosis without myelopathy or radiculopathy, lumbar region AMB Medial Branch Block - Lumbar/Sacral Today Carlos Kinney MD M47.816 - Spondylosis without myelopathy or radiculopathy, lumbar region Coding Level of Care Code Procedure Only Diagnoses Lumbar spondylosis M47.816 CPT Codes Medial Branch Block Lumbar/Sacral1 - Branch Block Lumb/Sac 1: 23866 - with Fluoroscopy (L3-L4) ([id number]) Medial Branch Block Lumbar/Sacral1 - Branch Block Lumb/Sac 2: 80265 - second level with Fluoroscopy (L3-L4-L5) ([id number])
--- OUTSIDE RECORDS SUMMARY | 2024-11-20 09:22 | XMS_ITS | Encounter Summary ---
Author Organization [facility] Address [address] [place] [address] Care Team Providers Care Sustainable Design Coordinator Name Role Phone Geoffrey Payne MD Primary Care Provider [phone] Reason for Visit * Reason Comments Appointment Encounter Details Date Type Department Care Team ([facility] st Contact Info) Description 08/08/2023 Telephone [facility] [address] [place] [address] Kathy Pond MD [address] [place] [address] Appointment Social History Tobacco Use Types Packs/Day Years Used Date Smoking Tobacco: Never Smokeless Tobacco: Never Alcohol Use Standard Drinks/Week Comments Yes 0 (1 standard drink = 0.6 oz pur e alcohol) SOCIAL [place] of Occupat ional Health - Occupational Stress [...] AM EDT [facility] visit [facility] [address] [place] [address] Alexis Lawton MD [address] [facility] [address] [place], [place] [address] 04/16/2025 8:20 AM EDT Office Visit [facility] Medical Weight Loss [facility] [address] [facility] [address] [place] [phone] Lenore De La Torre APRN [address] [facility] [address] [place] [phone] documented as of this encounter Visit Diagnoses Not on filedocumented in this encounter Care Teams Sustainable Design Coordinator Relationship Specialty Start Date End Date Geoffrey Payne MD [address] [place] [address] PCP - General 04/03/23 documented as of this encounter
--- OUTSIDE RECORDS SUMMARY | 2024-11-20 09:22 | XMS_ITS | Referral Summary ---
Author Organization [facility] Address [address] [place] [address] Care Team Providers Care Electrical Engineering Technician Name Role Phone Delmy Payne MD Primary Care Provider Encounters Date Type Department Care Team Description 09/03/2024 7:45 AM EST Follow-Up [facility] at [facility] [address] [place] [address] Seun Esteban MD Full thickness [...] Info) Description 12/10/2024 7:45 AM EDT Follow-Up [facility] at [address] [address] Seun Esteban MD [address] [place] [address] 12/25/2024 7:45 AM EDT Clinical Support [address] [address] 12/25/2024 8:00 AM EDT Follow-Up [address] [address] Sharri Mac MD [address] [place] [address] Procedures * Due to [place] [employer] law, this organization might not be sharing negative HIV tests. Procedure Name Priority Date/Time Associated Diagnosis Comments OCT, MACULA - OU - BOTH EYES Routine 09/03/2024 8:23 AM EST Full thickness macular hole, right from Last 3 Months Results * Due to [place] [employer] law, this organization might not be sharing negative HIV tests. * OCT, Retina - OU - Both Eyes (09/03/2024 8:23 AM EST) Narrative OPHTHALMOLOGY IMAGING - 09/03/2024 8:23 AM EST Hole closed, small outer retinal attenuation us Seun Esteban MD OPHTH TOMOGRAPHY Final Re sult OPHTHALMOLOGY IMAGING from Last [address] [facility] [employer] Advance Directives * Presumed Full Code (Latest Code Status on File) Date Activated Date Inactivated Comments 08/07/2024 9:09 AM 08/07/2024 2:06 PM Care Teams Electrical Engineering Technician Relationship Specialty Start Date End Date Delmy Payne MD [address] [place] [address] PCP - General Internal Medicine 05/17/23
--- OUTSIDE RECORDS SUMMARY | 2024-11-20 09:22 | XMS_ITS | Clinical Summary ---
Author Organization [facility] Address [address] [place] [address] Phone Care Team Providers Care Vamp Presser Name Role Phone Delmy Payne MD Primary Care Provider [phone] Allergies Active Allergy Reactions Criticality Noted Date [...] (05/13/2024): Normal barium swallow examination 01/15/2015 [facility]. Berkowitz at [facility] 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 Allergic rhinitis 09/07/2005 Encounters Date Type Department Care Team Description 11/19/2024 1:50 PM EDT Office Visit Gastroenterology - [address] [place] [address] Coretta Max, LEAD QA ANALYST Slow transit constipation (Primary Dx) 11/04/2024 10:00 AM EDT Office Visit General Surgery [facility] [address] [facility] [address] [place] [phone] Judith Abdullahi MD Mastalgia (Primary Dx) 10/29/2024 Telephone Gastroenterology - [facility] [address] [facility] [address] [place] [phone] Amberly Berkowitz MD Provider Call Back 10/14/2024 2:49 PM EDT - 10/14/2024 11:59 PM EDT Hospital Encounter Radiology Department - [address] [phone] Abnormal mammogram Discharge Disposition: Home or Self Care 10/14/2024 2:43 PM EDT - 10/14/2024 11:59 PM EDT Hospital Encounter Radiology Department - [address] [phone] Abnormal mammogram Discharge Disposition: Home or Self Care 10/13/2024 Telephone General Surgery - [place] [address] [facility] [address] [place] [phone] Judith Abdullahi MD Forms/questionnaires 10/08/2024 7:29 AM EDT - 10/08/2024 11:59 PM EDT Hospital Encounter Radiology Department - [address] [address] Encounter for screening mammogram for breast cancer Discharge Disposition: Home or Self Care 10/03/2024 8:00 AM EDT Consult Rehabilitation Medicine - [place] [address] [place] [phone] Lizet Paredes MD Sciatica, left side from Last 3 Months Immunizations Name Administration Dates Next Due Hepatitis B (Wnsonxn-F-Bpywp , Recombivax HB-Adult) 19yo and older 07/12/2006,02/09/2006,01/08/2006 [...] - [place] [address] [place] [phone] Olga Gill MD [address] [place] [address] 10/12/2025 7:30 AM EDT Appointment Radiology Department - [address] [address] Health Maintenance Due Date Last [...] mammography. Return to annual mammography. Mammo Location: [facility], [address] [place] [address], [address], . -------- FINAL REPORT -------- Dictated By: Kaern Hansen Dictated Date: 10/14/2024 15:01 ET Assigned Physician: Karen Hansen Reviewed and Electronically Signed By: Karen Hansen Signed Date: 10/14/2024 15:20 ET Workstation ID: [id number] Transcribed By: Self Edit Transcribed Date: 10/14/2024 [...] mammography. Return to annual mammography. Mammo Location: [facility], [address] [place] [address], [address], . -------- FINAL REPORT -------- Dictated By: Karen Hansen Dictated Date: 10/14/2024 15:01 ET Assigned Physician: Karen Hansen Reviewed and Electronically Signed By: Karen Hansen Signed Date: 10/14/2024 15:20 ET Workstation ID: [id number] Transcribed By: Self Edit Transcribed Date: 10/14/2024 [...] mammography. Return to annual mammography. Mammo Location: [facility], [address] [place] [address], [address], . -------- FINAL REPORT -------- Dictated By: Karen Hansen Dictated Date: 10/14/2024 15:01 ET Assigned Physician: Karen Hansen Reviewed and Electronically Signed By: Karen Hansen Signed Date: 10/14/2024 15:20 ET Workstation ID: [id number] Transcribed By: Self Edit Transcribed Date: 10/14/2024 [...] mammography. Return to annual mammography. Mammo Location: [facility], [address] [place] [address], [address], . -------- FINAL REPORT -------- Dictated By: Karen Hansen Dictated Date: 10/14/2024 15:01 ET Assigned Physician: Karen Hansen Reviewed and Electronically Signed By: Karen Hansen Signed Date: 10/14/2024 15:20 ET Workstation ID: [id number] Transcribed By: Self Edit Transcribed Date: 10/14/2024 [...] recommended for the Left Breast. Mammo Location: [facility], [address] [place] [address], [address], . -------- FINAL REPORT -------- Dictated By: Zari Cox Dictated Date: 10/08/2024 10:20 ET Assigned Physician: Zari Cox Reviewed and Electronically Signed By: Zari Cox Signed Date: 10/08/2024 10:48 ET Workstation ID: [id number] Transcribed By: Self Edit Transcribed Date: 10/08/2024 [...] is recommended forthe Left Breast. Mammo Location: [facility], [address] [place] [address], [address], . -------- FINAL REPORT -------- Dictated By: Zari Cox Dictated Date: 10/08/2024 10:20 ET Assigned Physician: Zari Cox Reviewed and Electronically Signed By: Zari Cox Signed Date: 10/08/2024 10:48 ET Workstation ID: [id number] Transcribed By: Self Edit Transcribed Date: 10/08/2024 [...] RESULTING AGENCY - 01/24/2018 10:50 AM EDT [id number] THINPREP PAP, IMAGED: NEGATIVE FOR SQUAMOUS INTRAEPITHELIAL [...] Most Recently Relevant to Health Maintenance Insurance [facility] Care Teams Vamp Presser Relationship Specialty Start Date End Date Delmy Payne MD [address] [place] [address] PCP - General Internal Medicine 11/24/20
--- OUTSIDE RECORDS SUMMARY | 2024-11-20 09:22 | XMS_ITS | Clinical Summary ---
Author Organization [facility] Address [address] [id number] Care Team Providers Care Broker In Charge Name Role Phone Delmy Payne MD Primary Care Provider [phone] Allergies Active Allergy Reactions Criticality Noted Date [...] to get into a tinnitus clinic at [facility]. At this time, we would most likely [...] Team Description 09/03/2024 7:45 AM EST Follow-Up [facility] at [address] [address] Seun Esteban MD Full thickness macular hole, [...] Info) Description 12/10/2024 7:45 AM EDT Follow-Up [facility] at [address] [address] Seun Esteban MD [address] [place] [address] 12/25/2024 7:45 AM EDT Clinical Support [address] [address] 12/25/2024 8:00 AM EDT Follow-Up [address] [address] Sharri Mac MD [address] [place] [address] Health Maintenance Due Date Last Done Comments [...] 07/12/2006, 02/09/2006, 01/08/2006 Procedures * Due to [place] [employer] law, this organization might not be sharing negative HIV tests. Procedure Name Priority Date/Time Associated Diagnosis Comments OCT, MACULA - OU - BOTH EYES Routine 09/03/2024 8:23 AM EST Full thickness macular hole, right from Last 3 Months Results * Due to [place] [employer] law, this organization might not be sharing negative HIV tests. * OCT, Retina - OU - Both Eyes (09/03/2024 8:23 AM EST) Narrative OPHTHALMOLOGY IMAGING - 09/03/2024 8:23 AM EST Hole closed, small outer retinal attenuation us Seun Esteban MD OPHTH TOMOGRAPHY Final Re sult OPHTHALMOLOGY IMAGING from Last 3 Months Insurance [facility] [address] [place] [address] [place] [address] Advance Directives * Presumed Full Code (Latest Code Status on File) Date Activated Date Inactivated Comments 08/07/2024 9:09 AM 08/07/2024 2:06 PM Care Teams Broker In Charge Relationship Specialty Start Date End Date Delmy Payne MD [address] [place] [address] PCP - General Internal Medicine 05/17/23
--- OUTSIDE RECORDS SUMMARY | 2024-11-20 09:22 | XMS_ITS | Encounter Summary ---
Author Organization [facility] Address [address] [place] [address] Care Team Providers Care Sharepoint Analyst Name Role Phone Delmy Payne MD Primary Care Provider [phone] Encounter Details Date Type Department Care Team (Late st Contact Info) Description 08/02/2024 Ophth Exam [facility] [address] [place] [address] Indira Sanchez MD [address] [place] [address] Social History Tobacco Use Types Packs/Day Years [...] Info) Description 12/10/2024 7:45 AM EDT Follow-Up [facility] at [address] [address] Seun Esteban MD [address] [place] [address] 12/25/2024 7:45 AM EDT Clinical Support [facility] [address] [place] [address] 12/25/2024 8:00 AM EDT Follow-Up [address] [address] Sharri Mac MD [address] [place] [address] documented as of this encounter Visit Diagnoses Not on filedocumented in this encounter Care Teams Sharepoint Analyst Relationship Specialty Start Date End Date Delmy Payne MD [address] [place] [address] PCP - General Internal Medicine 05/17/23 documented as of this encounter
--- OUTSIDE RECORDS SUMMARY | 2024-11-20 09:22 | XMS_ITS | Encounter Summary ---
Author Organization [facility] Address [address] [place] [address] Care Team Providers Care Automatic Spooler Operator Name Role Phone Geoffrey Payne MD Primary Care Provider [phone] Encounter Details Date Type Department Care Team (Late st Contact Info) Description 11/20/2023 Scanned Document [facility] [address] [place] [phone] Alexis Lawton MD [address] [place] [address] Social History Tobacco Use Types Packs/Day Years Used Date Smoking Tobacco: Never Smokeless Tobacco: Never Alcohol Use Standard Drinks/Week Comments Yes 0 (1 standard drink = 0.6 oz pur e alcohol) SOCIAL [place] of Occupat ional Health - Occupational Stress [...] AM EDT Procedure visit [facility] [address] [facility] [address] [place] [address] Alexis Lawton MD [address] [facility] [address] [place] [address] 04/16/2025 8:20 AM EDT Office [facility] [place] 7 [facility] [address] [place] [phone] Lenore De La Torre, LOGAN 7 [facility] [address] [place] [phone] documented as of this encounter Visit Diagnoses Not on filedocumented in this encounter Care Teams Automatic Spooler Operator Relationship Specialty Start Date End Date Geoffrey Payne MD [address] [place] [address] PCP - General 04/03/23 documented as of this encounter
--- OUTSIDE RECORDS SUMMARY | 2024-11-20 09:23 | XMS_ITS | Encounter Summary ---
Author Organization [facility] [place] [place] [address] Care Team Providers Care Tooling Specialist Name Role Phone Delmy Payne MD Primary Care Provider [phone] Encounter Details Date Type Department Care Team (Late st Contact Info) Description 11/19/2024 1:50 PM EDT Office Visit Gastroenterology - [address] [place] [phone] Coretta Max NP [address] [place] [address] Slow transit constipation (Primary Dx) Social History [...] REPEAT AFTER 2-3 MIN IF NO/MINIMAL RESPONSE BIDUbxytugblu-fkxbftsvcxf-rihtjhny-scopoloamine () 16.2-0.1037 -0.0194 mg/5 mL elixir Take [...] in the patient's care. Board Certified Gastroenterology [facility] W [phone] [place] [address] [address] [place] [address] [email or web address] Coretta Max NP documented in this encounter Plan of Treatment Upcoming Encounters Date Type Department Care Team (Late st Contact Info) Description 12/08/2024 8:30 AM EDT Office Visit Rheumatology - [place] [address] [place] [phone] Olga Gill MD [address] [place] [address] 10/12/2025 7:30 AM EDT Appointment Radiology Department - [address] [phone] documented as of this encounter Visit Diagnoses Diagnosis Slow transit constipation- Primary documented in this encounter Care Teams Tooling Specialist Relationship Specialty Start Date End Date Delmy Payne MD [address] [place] [address] PCP - General Internal Medicine 11/24/20 documented as of this encounter
--- OUTSIDE RECORDS SUMMARY | 2024-11-20 09:23 | XMS_ITS | Encounter Summary ---
Author Organization [facility] Address [address] [place] [address] Care Team Providers Care Pile Driver Engineer Name Role Phone Geoffrey Payne MD Primary Care Provider [phone] Encounter Details Date Type Department Care Team (Late st Contact Info) Description 04/27/2023 Scanned Document [facility] [address] [phone] Alexis Lawton MD 499 [facility] [address] [place] [address] Social History Tobacco Use Types Packs/Day Years [...] 8:00 AM EDT [facility] [address] [place] [address] Alexis Lawton MD [address] [address] 04/16/2025 8:20 AM EDT Office Visit [facility] [place] [address] [place] [address] Lenore De La Torre, LOGAN [address] [facility] [address] [place] [address] documented as of this encounter Visit Diagnoses Not on filedocumented in this encounter Care Teams Pile Driver Engineer Relationship Specialty Start Date End Date Geoffrey Payne MD [address] [place] [address] PCP - General 04/03/23 documented as of this encounter
--- OUTSIDE RECORDS SUMMARY | 2024-11-20 09:23 | XMS_ITS | Clinical Summary ---
Author Organization [facility] Address [address] [place] [address] Care Team Providers Care Cdc Associate Name Role Phone Geoffrey Payne MD Primary Care Provider [phone] Allergies Active Allergy Reactions Criticality Noted Date [...] gain,Obesity, Class III, BMI 40-49.9 (morbid obesity) ([facility]) Take 1 tablet (500 mg total) by mouth every morning with breakfast. 30 tablet 4 Active Insulin Pen Needle 32G X 4 MM MiscIndications :Obesity, Class III, BMI 40-49.9 (morbid obesity) ([facility]),Pre-diabe jonathon To use daily with pen [...] Description 11/13/2024 4:40 PM EDT Office Visit [facility] [place] [address] [facility] [address] [place] [phone] Lenore De La Torre APRN Obesity, Class III, BMI 40-49.9 (morbid obesity) ([facility]) (Primary Dx); Type 2 diabetes mellitus with obesity (HCC) 11/13/2024 Travel 10/28/2024 Telephone [facility] [address] [phone] Indira Duran, client relation specialist Only 10/17/2024 Telephone [facility] [address] [phone] Indira Duran, RN 10/14/2024 4:00 PM EDT Office Visit [facility] [place] [address] [phone] Lenore De La Torre APRN Obesity, Class III, BMI 40-49.9 (morbid obesity) ([facility]) (Primary Dx); Type 2 diabetes mellitus [...] = 0.6 oz pur e alcohol) SOCIAL [facility] - Occupational Stress Questionnaire Answer Date [...] AM EDT [facility] visit [facility] [address] [place] [phone] Alexis Lawton MD [address] [place] [address] [address] [place] [address] 04/16/2025 8:20 AM EDT Office Visit [facility] [place] [address] [facility] [address] [place] [phone] Lenore De La Torre, BUILDING EQUIPMENT INSPECTOR 7 [facility] [address] [place] [address] Health Maintenance Due Date Last [...] season) 2024 Influenza Vaccine 01/30/2025 04/22/2017 Insurance [facility] (AUTO/LIABILITY) Advance Directives Documents on File Type Date Recorded Patient Hospitality Intern Expl anation Advance Directive-Scan 08/23/2023 fax t o htfd [place]-VTC Advance Directive-Scan 08/21/2023 HFSC FAX REQ-VTC Advance Directive-Scan 06/05/2023 PT SC RIPT Advance Directive-Scan 06/05/2023 CHECK OUT Care Teams Cdc Associate Relationship Specialty Start Date End Date Geoffrey Payne MD [address] [place] [address] [facility] - General 04/03/23
--- OUTSIDE RECORDS SUMMARY | 2024-11-20 09:23 | XMS_ITS | Clinical Summary ---
Author Organization [facility] Address [address] [place] [address] Care Team Providers Care Compensation Director Name Role Phone Unavailable Primary Care Provider [...] Vaccine (Season Ended) 2025 04/22/20 17 Insurance [facility]
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
--- OUTSIDE RECORDS SUMMARY | 2024-11-20 09:23 | XMS_ITS | Encounter Summary ---
Author Organization [facility] Address [address] [place] [address] Care Team Providers Care Manager Of Project Management Name Role Phone Geoffrey Payne MD Primary Care Provider [phone] Encounter Details Date Type Department Care Team (Late st Contact Info) Description 06/09/2024 Scanned Document [facility] [place] [address] [place] [phone] Alexis Lawton MD [address] [place] [address] Social History Tobacco Use Types Packs/Day Years Used Date Smoking Tobacco: Never Smokeless Tobacco: Never Alcohol Use Standard Drinks/Week Comments Yes 0 (1 standard drink = 0.6 oz pur e alcohol) SOCIAL [place] [facility] - Occupational Stress [...] AM EDT Procedure visit [facility] [place] [address] [facility] [address] [place] [address] Alexis Lawton MD 499 [facility] [address] [place] [address] 04/16/2025 8:20 AM EDT Office [facility] [place] 7 [facility] [address] [place] [phone] Lenore De La Torre, LOGAN 7 [facility] [address] [place] [phone] documented as of this encounter Visit Diagnoses Not on filedocumented in this encounter Care Teams Manager Of Project Management Relationship Specialty Start Date End Date Geoffrey Payne MD [address] [place] [address] PCP - General 04/03/23 documented as of this encounter
[2024-11-20 09:54] VITALS: BP 130/84; PULSE 75; RESP 16; O2SAT 98
== END 2024-11-20 09:55 | disposition home or self-care (01) ==
LOC: HO.PMCPRC 09:08
PROVIDERS: PCP Internal Medicine; Visit Provider Internal Medicine
DX: M47.816 Spondylosis without myelopathy or radiculopathy, lumbar region (principal)
CPT/HCPCS: 64493; 64494

== ENCOUNTER 2024-11-27 10:57 | Outpatient (AMB) | payer OTHER, SELFPAY ==
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
[2024-11-27 11:08] VITALS: BP 153/74; PULSE 61; O2SAT 99; BMI 41.4
--- OUTSIDE RECORDS SUMMARY | 2024-11-27 11:26 | XMS_ITS | Encounter Summary ---
Author Organization [facility] Address [address] [place] [address] Care Team Providers Care Paediatric Thoracic Physician Name Role Phone Geoffrey Payne MD Primary Care Provider [phone] Encounter Details Date Type Department Care Team (Late st Contact Info) Description 11/20/2023 Scanned Document [facility] [address] [place] [phone] Alexis Lawton MD [address] [place] [address] Social History Tobacco Use Types Packs/Day Years Used Date Smoking Tobacco: Never Smokeless Tobacco: Never Alcohol Use Standard Drinks/Week Comments Yes 0 (1 standard drink = 0.6 oz pur e alcohol) SOCIAL [employer] [place] [employer] - Occupational Stress [...] AM EDT Procedure visit [facility] [address] [facility] [address] [place] [address] Alexis Lawtno MD [address] [facility] [address] [place] [address] 04/16/2025 8:20 AM EDT Office Visit [facility] [place] [address] [facility] [address] [place] [phone] Lenore De La Torre, LOGAN [address] [facility] [address] [place] [phone] documented as of this encounter Visit Diagnoses Not on filedocumented in this encounter Care Teams Paediatric Thoracic Physician Relationship Specialty Start Date End Date Geoffrey Payne MD [address] [place] [address] PCP - General 04/03/23 documented as of this encounter
== END 2024-11-27 11:20 | disposition home or self-care (01) ==
LOC: HO.PMC 10:58
PROVIDERS: PCP Internal Medicine; Visit Provider Nurse Practitioner Family
DX: M47.816 Spondylosis without myelopathy or radiculopathy, lumbar region (principal); M53.3 Sacrococcygeal disorders, not elsewhere classified; M54.50 Low back pain, unspecified
CPT/HCPCS: 99213

== ENCOUNTER → 2024-11-27 10:57 | Outpatient (BNVA) | payer OTHER, SELFPAY | PROVIDERS: PCP Internal Medicine; Visit Provider Nurse Practitioner Family ==

== ENCOUNTER 2025-04-20 14:15 | Outpatient (AMB) | payer OTHER, SELFPAY ==
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
[2025-04-20 14:24] VITALS: BP 176/81; PULSE 63; O2SAT 97; BMI 39.2
--- OUTSIDE RECORDS SUMMARY | 2025-04-20 17:57 | XMS_ITS | Data Portability ---
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 day. active Not Available Not Available No t Available tramadol 50 mg tablet TAKE 1 TABLET BY MOUTH EVERY 6 (SIX) HOURS IF NEEDED FOR SEVERE PAIN.(MAX OF 7 ON FIRST FILL) active Not Available Not Available No t Available ketorolac 0.5 % eye drops INSTILL 1 DROP INTO THE RIGHT EYE 4 TIMES A DAY. 11/19 completed Not Available Not Available Not Available cyclopentol ate 1 % eye drops INSTILL 1 DROP INTO THE RIGHT EYE DAILY. 03/16 completed Not Available Not Available Not Available ofloxacin 0.3 % ear drops TAKE 5 DROPS (OTIC (EAR) - BILATERAL LY) 2 TIMES PER DAY FOR 10 DAYS 03/16 completed Not Available Not Available Not Available amoxicillin 875 mg tablet TAKE 1 TABLET BY MOUTH TWICE A DAY FOR 7 DAYS 07/14 completed Not Available Not Available Not Available famotidine 20 mg tablet 0 Refills, Ryland espitia, 01/12/20 9:01:00 EDT 2019 active Not Available Not Available Not Avai lable prednisolon e acetate 1 % eye drops,suspe nsion INSTILL 1 DROP INTO THE RIGHT EYE 4 TIMES A DAY. 03/16 completed Not Available Not Available Not Available diazepam 2 mg tablet TAKE 1 TABLET BY MOUTH DAILY AT BEDTIME NEEDED SPASMS active Not Available Not Available No t Available ferrous sulfate 325 mg (65 mg iron) tablet Iron, Refills 0, Maintenan ce, 09/17/19 8:23:00 EDT, Supply 2019 active Not Available Not Available Not Avai lable clotrimazol e-betametha sone 1 %-0.05 % topical cream apply SPARINGLY to affected area twice a day for UP TO 2 WEEKS 03/16 completed Not Available Not Available Not Available fluorometho lone 0.1 % eye drops,suspe nsion SHAKE LIQUID AND INSTILL 1 DROP IN BOTH EYES THREE TIMES DAILY FOR 14 DAYS 07/14 completed Not Available Not Available Not Available lidocaine 5 % topical patch APPLY 1 PATCH TOPICALLY TO THE SKIN DAILY NEEDED FOR MODERATE PAIN 03/16 completed Not Available Not Available Not Available ibuprofen 400 mg tablet 03/16 completed Not Available Not Available Not Available pseudoephed rine ER 240 mg tablet,exte nded release 24 hr Take 1 tablet by mouth every morning. 03/16 completed Not Available Not Available Not Available indapamide 1.25 mg tablet TAKE 1 TABLET BY MOUTH EVERY DAY IN THE MORNING 11/12 completed Not Available Not Available Not Available diclofenac potassium 50 mg tablet TAKE 1 TABLET BY MOUTH TWICE A DAY NEEDED FOR MODERATE PAIN active Not Available Not Available No t Available methimazole 5 mg tablet TAKE 1.5 TABLETS BY MOUTH DAILY (7.5 MG) active Not Available Not Available No t Available norethindro ne acetate 5 mg tablet TAKE 2 TABLETS BY MOUTH TWICE A DAY 03/16 completed Not Available Not Available Not Available epinephrine 0.3 mg/0.3 mL injection, auto-inject or INJECT 0.3 MG INTRAMUSC ULARLY ONCE active Not Available Not Available No t Available scopolamine 1 mg over 3 days transdermal patch 1 patch every 3 (three) days. 03/16 completed Not Available Not Available Not Available methylpredn isolone 4 mg tablets in a dose pack TAKE 6 TABLETS ON DAY 1 DIRECTED ON PACKAGE AND DECREASE BY 1 TAB EACH DAY FOR A TOTAL OF 6 DAYS 03/16 completed Not Available Not Available Not Available albuterol sulfate HFA 90 mcg/actuati on aerosol inhaler TAKE 2 PUFFS (INHALATI ON) EVERY 4 TO 6 HOURS (DYSPNEA) FOR 7 DAYS 03/16 completed Not Available Not Available Not Available timolol maleate 0.5 % eye drops INSTILL 1 DROP INTO THE LEFT EYE 2 TIMES A DAY. active Not Available Not Available No t Available ipratropium bromide 42 mcg (0.06 %) nasal spray SPRAY 2 SPRAYS BY INTRANASA L ROUTE 3 TIMES A DAY NEEDED active Not Available Not Available No t Available fluticasone propionate 50 mcg/actuati on nasal spray,suspe nsion TAKE 1 SPRAYS (INTRANAS AL) 2 TIMES PER DAY FOR 90 DAYS 03/16 completed Not Available Not Available Not Available metformin ER 500 mg tablet,exte nded [...] MOUTH EVERY 12 HOURS FOR 7 DAYS 03/16 completed Not Available Not Available Not Available dorzolamide 2 % eye drops INSTILL 1 DROP INTO AFFECTED EYE(S) BY OPHTHALMI C ROUTE 3 TIMES PER DAY 03/16 completed Not Available Not Available Not Available oxycodone 5 mg tablet TAKE 1 TABLET (5 MG TOTAL) BY MOUTH EVERY 4 (FOUR) HOURS NEEDED FOR PAIN (BACK). PARTIAL FILL OK active Not Available Not Available No t Available cyclobenzap rine 5 mg tablet TAKE 1 TABLET BY MOUTH EVERY DAY NEEDED FOR SPASM active Not Available Not [...] topical gel APPLY TOPICALLY FOUR TIMES DAILY 03/16 completed Not Available Not Available Not Available cholecalcif cornelia (vitamin D3) 50 mcg (2,000 unit) capsule Take by mouth. 2019 active Not Available Not Available Not Avai lable Savella 25 mg tablet TAKE 1 TABLET BY MOUTH TWICE A DAY 03/16 completed Not Available Not Available Not Available Zyrtec 10 mg capsule Take 1 capsule (10 mg total) by mouth daily. 05/28 completed Not Available Not Available Not Available naloxone 4 mg/actuatio n nasal spray ADMINISTE R 1 SPRAY INTO ONE NOSTRIL NEEDED. CALL 911. REPEAT AFTER 2-3 MIN IF NO/MINIMA L RESPONSE active Not Available Not Available No t Available BD Ayaka 2nd Gen Pen Needle 32 gauge x TO USE DAILY WITH PEN DEVICE active [...] Address Organization Details Last Updated DateTime 07/14/2024 341226.25 g 43.5 kg/m2 154.94 cm [facility] 07/14/2024 13:56:19 Date Recorded Body height Body mass index (BMI) Body weight Body temperature Oxygen saturation Oxygen saturation in Arterial blood by Pulse oximetry Heart rate Systolic And Diastolic Provider Name and Address Organization Details Last Updated DateTime 154.94 cm 41.4 kg/m2 23103.7 3 g 97.6 [degF] 97 % 97 % 68 /min 130/82 mm[Hg] [facility] 08:59:41 Date Recorded Body height Body mass index (BMI) Body weight Respiratory rate Provider Name and Address Organization Details Last Updated DateTime 11/19/2024 154.94 cm 41.4 kg/m2 14493.73 g 12 /min [facility] 11/19/2024 08:01:23 Date Recorded Body height Body mass index (BMI) Body weight Respiratory rate Provider Name and Address Organization Details Last Updated DateTime 03/16/2025 154.94 cm 37.8 kg/m2 78218.47 g 12 /min Gina Sullivan [facility] 03/16/2025 08:37:10 Social History Question Answer Notes LastModified by Organizat ion Details LastModified Time Tobacco Smoking Status Never Smoker Gina Sullivan null, [facility] 07/09/2024 13:13:35 Alcohol Use Rare kmussenden [...] Diagnosis SNOMED-CT Code Diagnosis ICD10 Code Diagnosis IMO Codes Diagnosis Note [id number] Marjorie Schwartz MD [facility]MM[facility] [address] 07/14/2024 11:15:00 07/16/2024 15:05:40 Perennial allergic rhinitis with seasonal variation 292646269 J30.89 J30.2 0832187 Idiopathic urticaria 422 89591 L50.1 059752 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,3 galactose 041228227 T78.1XXA [id number] MD ELKE Izquierdo_[facility]_ IMMUN_[address] [address] 11/12/2024 08:52:41 11/17/2024 14:14:13 Perennial allergic rhinitis with seasonal variation 519187942 J30.89 J30.2 3687196 Idiopathic urticaria 422 79090 L50.1 520179 Neck swelling 880311886 R22.1 132398 Lymphadenopathy 81797683 R59.1 46165 Adverse re action to drug 17913300 T50.905A 97448323 History of asthma 140054 007 Z87.09 4540787 [id number] MD ELKE Izquierdo_[facility]_ IMMUN_[address] [address] 11/19/2024 08:00:32 11/19/2024 15:27:03 Neck swelling 776820417 R22.1 982410 Idiopathic urticaria 422 87999 L50.1 677509 Adverse re action to drug 62490366 T50.905A 87978379 Lymphadenopathy 92789779 R59.1 26507 Perennial allergic rhinitis with seasonal variation 668332324 J30.89 J30.2 6193472 Streptococ nubia infectious disease 73888221 B95.0 [id number] MD ELKE Izquierdo_[facility]_ IMMUN_[address] [address] 03/16/2025 08:36:01 03/18/2025 12:09:42 Idiopathic urticaria 56586881 L50.1 439973 Allergic r hinitis caused by pollen 29601501 J30.1 87155445 Allergic r hinitis caused by house dust mite 348285323 J30.89 44819410 Non-allergic rhinitis 31 34162057 01 J31.0 716271 Health Concerns Section Related Observation LastModified by Organization Detai ls LastModified Time None Recorded Concern Status LastModified by Organization Details LastModified Time None Recorded Advance Directives Directive None Recorded Payers Insurance Date Sequence Insurance Name Policy Number Policy Burkett Covered Member ID Burkett Member ID Guarantor Name 03/13/[address] [place] [address] [id number] Selam Aggarwal [id number] Selam Aggarwal Notes Date Note Type Note Provider Name and Address Organization Details Recorded Time 5 text/html ROS as noted in the HPI TELEHEALTH (Video and Audio) The patient received guidance on receiving healthcare through telehealth, including the use of HIPAA privacy -compliant technology for remote communication and its associated privacy risks. The patient was also informed of the limitations of treatment provided through telehealth and that in the event of a lost or failed video connection, the provider may call back or reschedule the visit. Alternatively, the patient may opt for an in-person visit. The patient gave consent for the use of video communication and provided care. The patient understands the visit will be submitted to their insurance and that they are responsible for any copay or deductible charges. A video telemedicine conference was performed via [employer]. Total time spent reviewing records, encounter, coordinating care: 31 minutes Patient Location: Her home Provider Location: [facility] Office Dear Dr. Payne,I had the pleasure of seeing Selam Aggarwal [...] try Astepro nasal spray.She comes today for follow-up.She did try Astepro PRN, which does feel [...] has no other questions/concerns for today's visit. Allergy/Immunology History:Initial visit with Dr. Schwartz (allergy) was 05/28/24.I reviewed 10 pages of notes/referral from rheum for reported h/o angioedema. ARC: She has had allergies since teenage years, for which she took allergy shots. In Jan 2024, her symptoms worsened. She has nasal congestion, sinus pressure, and irritated eyes. She takes Zyrtec BID, since Jan 2024. She didn t take any Zyrtec for a ~3 [...] days only) and Benadryl, and if this doesn t work then she will go to the ER but she has not needed to go to the ER lately since she can manage it at home. She has not had hives in a long time. She has not been taking anything to prevent the hives or swelling. She feels it is completely random and it seems to be occurring less frequently.Labs: 05/28/24: Tryptase <11.0 mcg/L 4.8 Histamine release assay still pending. ?Alpha gal:She reports that a doctor thinks she may have alpha gal. She reports that her swelling started after being at a BBQ and she does think that it caused the start of her swelling the first time. She is not sure how to be tested to this.Component Latest Ref Rng 05/28/2024 Alpha Galactosidase, S 0.074 - 0.457 U/L 0.236 Interpretation W monie test for alpha gal was done, so may consider doing correct test if patient wants. She has Grave s :as an autoimmune condition and possibly others. She sees rheumatology, but no clear diagnoses has been found.She had asthma:as a teenager. She attributes it to having a dog at that time and her allergies were bad at that time. She denies asthma as an adult.She has eczema:It has been worse lately. She uses hydrocortisone OTC. She has not seen a endoscopic technician in [place], so she does not have a Rx currently.Hymenoptera all:She reports that with 1 sting from a bee, she was stung on her neck and developed localized swelling, felt she had trouble breathing, and was sick for 1 week afterwards.She has propranolol available for PRN tachycardia for Grave s , but she does not typically need it.She denies any food or latex allergies. Marjorie Schwartz MD [address] [place] [address], [address], [place], [address], [place] - [place] [facility] 09/15/2024 09:48:35 5 text/html ROS as noted in the HPI Dear Dr. Payne,I had the pleasure of seeing Selam Aggarwal [...] She is also due for a follow-up appointment.She called earlier this week reporting that she [...] has no other questions/concerns for today's visit. Allergy/Immunology History:Initial visitwith Dr. Schwartz (allergy) was 05/28/24.I reviewed 10 pages of notes/referral from rheum for reported h/o angioedema. ARC:She has had allergies since teenage years, for which she took allergy shots. In Jan 2024, her symptoms worsened. She has nasal congestion, sinus pressure, and irritated eyes. She takes Zyrtec BID, since Jan 2024. She didn t take any Zyrtec for a ~3 [...] days only) and Benadryl, and if this doesn t work then she will go to the ER but she has not needed to go to the ER lately since she can manage it at home. She has not had hives in a long time. She has not been taking anything to prevent the hives or swelling. She feels it is completely random and it seems to be occurring less frequently.Labs: 05/28/24:Tryptase<11.0 mcg/L 4.8HISTAMINE RELEASE (CHRONIC URTICARIA)<16 % <16 ?Alpha gal:She reports that a doctor thinks she may have alpha gal. She reports that her swelling started after being at a BBQ and she does think that it caused the start of her swelling the first time. She is not sure how to be tested to this.Lab 4Alpha Galactosidase, S0.074 - 0.457 U/L 0.236Interpretation W monie test for alpha gal was done, so may consider doing correct test if patient wants. She hasGrave s :as an autoimmune condition and possibly others. She sees rheumatology, but no clear diagnoses has been found.She hadasthma:as a teenager. She attributes it to having a dog at that time and her allergies were bad at that time. She denies asthma as an adult.She haseczema:It has been worse lately. She uses hydrocortisone OTC. She has not seen a endoscopic technician in awhile, so she does not have a Rx currently.Hymenoptera all:She reports that with 1 sting from a bee, she was stung on her neck and developed localized swelling, felt she had trouble breathing, and was sick for 1 week afterwards.She haspropranololavailable for PRN tachycardia for Grave s , but she does not typically need it.Shedeniesany food or latex allergies. ALLERGIES: Bee Venom Anaphylaxis Copper Anaphylaxis Zolpidem Other (See Comments) and Nausea And VomitingOther reaction(s): OTHER, Other (see comments)Passed out & vomited uncontroablyOther reaction(s): Other (see comments), Other (See Comments), vomitingOther reaction(s): OTHER, Other (see comments)Passed out & vomited uncontroablyOther reaction(s): OTHER, Other (see comments)Passed out & vomited uncontroablyOther reaction(s): Other (see comments), Other (See Comments), vomitingOther reaction(s): OTHER, Other (see comments)Passed out & vomited uncontroably Cyclosporine Other (See Comments)Other reaction(s): rodríguez eyes Amlodipine Other (See Comments)Per pt had excessive swelling and got blood clot on legPer pt had excessive swelling and got blood clot on legPer pt had excessive swelling and got blood clot on leg Gabapentin Other (See Comments)Other reaction(s): Other (see comments)Other reaction(s): Other (see comments) Lidocaine Viscous HclOther reaction(s): lung pain Nickel Other (See Comments)Other reaction(s): Other (see comments)Skin IrritationOther reaction(s): Other (see comments), Other (See Comments)Other reaction(s): Other (see comments)Skin IrritationOther reaction(s): Other (see comments)Skin IrritationOther reaction(s): Other (see comments), Other (See Comments)Other reaction(s): Other (see comments)Skin Irritation Pantoprazole Other (See Comments)Other reaction(s): Other (see comments)GI problemsOther reaction(s): Other (see comments), Other (See Comments)Other reaction(s): Other (see comments)GI problemsOther reaction(s): Other (see comments)GI problemsOther reaction(s): Other (see comments), Other (See Comments)Other reaction(s): Other (see comments)GI problems Ranitidine Other (See Comments)Other reaction(s): Dizzy spells, Joint painGI pain, vision problems,Other reaction(s): Dizzy spells, Joint pain, Other (see comments), Other (See Comments)Other reaction(s): Dizzy spells, Joint painGI pain, vision problems, Sulfa Antibioticssulfa eye drops Tuberculin Purified Protein DerivativeAnaphylactic reaction; aplisol type Azithromycin Other (See Comments) and RashOther reaction(s): Gastritis, Other (see comments)Other reaction(s): Other (see comments), Other (See Comments), rashOther reaction(s): Gastritis, Other (see comments)Other reaction(s): Gastritis, Other (see comments)Other reaction(s): Other (see comments), Other (See Comments), rashOther reaction(s): Gastritis, Other (see comments) Duloxetine Palpitations Erythromycin Other (See Comments) and RashOther reaction(s): Other (see comments), Other (See Comments)Other reaction(s): Other (see comments), Other (See Comments)FAMILY HISTORY: Asthma Mother Allergic rhinitis Mother Diabetes Father Heart disease Brother Asthma Maternal Grandmother Allergic rhinitis Maternal Grandmother Sarcoidosis Cousin Sarcoidosis Cousin Crohn's disease Cousin Eczema Son Asthma Son Allergic rhinitis Son Asthma Son Allergic rhinitis Son Eczema Daughter Asthma Daughter Allergic rhinitis Daughter Asthma Grandchildhospitalized 2x in 2023No one else in the family known to have asthma, allergic rhinitis, eczema, drug allergies, food allergies, immunodeficiency, autoimmune disease, cystic fibrosis, cancer, or heart disease.ENVIRONMENTAL/SO CIAL HISTORY:Reviewed today and no significant changes noted. [...] and throughout the home. Marjorie Schwartz MD [address] [place] [address], [address], [place], [address], [place] - [place] [facility] 11/13/2024 09:33:30 5 text/html ROS as noted in the HPI TELEHEALTH (Video and Audio) The patient received guidance on receiving healthcare through telehealth, including the use of HIPAA privacy -compliant technology for remote communication and its associated privacy risks. The patient was also informed of the limitations of treatment provided through telehealth and that in the event of a lost or failed video connection, the provider may call back or reschedule the visit. Alternatively, the patient may opt for an in-person visit. The patient gave consent for the use of video communication and provided care. The patient understands the visit will be submitted to their insurance and that they are responsible for any copay or deductible charges. A video telemedicine conference was performed via [employer]. Total time spent reviewing records, encounter, coordinating care: 17 minutes Patient Location: Her home Provider Location: [facility] Office Dear Dr. Payne,I had the pleasure of seeing Selam Aggarwal [...] worse in the evenings. She reports that UC thought she had Strep A and Rx'd [...] day. She is being seen today for follow-up.Her face is back to normal. She is [...] has no other questions/concerns for today's visit. Allergy/Immunology History:Initial visitwith Dr. Schwartz (allergy) was 05/28/24.I reviewed 10 pages of notes/referral from rheum for reported h/o angioedema. ARC:She has had allergies since teenage years, for which she took allergy shots. In Jan 2024, her symptoms worsened. She has nasal congestion, sinus pressure, and irritated eyes. She takes Zyrtec BID, since Jan 2024. She didn t take any Zyrtec for a ~3 [...] days only) and Benadryl, and if this doesn t work then she will go to the ER but she has not needed to go to the ER lately since she can manage it at home. She has not had hives in a long time. She has not been taking anything to prevent the hives or swelling. She feels it is completely random and it seems to be occurring less frequently.Labs: 05/28/24:Tryptase<11.0 mcg/L 4.8HISTAMINE RELEASE (CHRONIC URTICARIA)<16 % <16 ?Alpha gal:She reports that a doctor thinks she may have alpha gal. She reports that her swelling started after being at a BBQ and she does think that it caused the start of her swelling the first time. She is not sure how to be tested to this.Lab 4Alpha Galactosidase, S0.074 - 0.457 U/L 0.236Interpretation W monie test for alpha gal was done, so may consider doing correct test if patient wants. She hasGrave s :as an autoimmune condition and possibly others. She sees rheumatology, but no clear diagnoses has been found.She hadasthma:as a teenager. She attributes it to having a dog at that time and her allergies were bad at that time. She denies asthma as an adult.She haseczema:It has been worse lately. She uses hydrocortisone OTC. She has not seen a endoscopic technician in [place], so she does not have a Rx currently.Hymenoptera all:She reports that with 1 sting from a bee, she was stung on her neck and developed localized swelling, felt she had trouble breathing, and was sick for 1 week afterwards.She haspropranololavailable for PRN tachycardia for Grave s , but she does not typically need it.Shedeniesany food or latex allergies. ALLERGIES: Bee Venom Anaphylaxis Copper Anaphylaxis Zolpidem Other (See Comments) and Nausea And VomitingOther reaction(s): OTHER, Other (see comments)Passed out & vomited uncontroablyOther reaction(s): Other (see comments), Other (See Comments), vomitingOther reaction(s): OTHER, Other (see comments)Passed out & vomited uncontroablyOther reaction(s): OTHER, Other (see comments)Passed out & vomited uncontroablyOther reaction(s): Other (see comments), Other (See Comments), vomitingOther reaction(s): OTHER, Other (see comments)Passed out & vomited uncontroably Cyclosporine Other (See Comments)Other reaction(s): rodríguez eyes Amlodipine Other (See Comments)Per pt had excessive swelling and got blood clot on legPer pt had excessive swelling and got blood clot on legPer pt had excessive swelling and got blood clot on leg Gabapentin Other (See Comments)Other reaction(s): Other (see comments)Other reaction(s): Other (see comments) Lidocaine Viscous HclOther reaction(s): lung pain Nickel Other (See Comments)Other reaction(s): Other (see comments)Skin IrritationOther reaction(s): Other (see comments), Other (See Comments)Other reaction(s): Other (see comments)Skin IrritationOther reaction(s): Other (see comments)Skin IrritationOther reaction(s): Other (see comments), Other (See Comments)Other reaction(s): Other (see comments)Skin Irritation Pantoprazole Other (See Comments)Other reaction(s): Other (see comments)GI problemsOther reaction(s): Other (see comments), Other (See Comments)Other reaction(s): Other (see comments)GI problemsOther reaction(s): Other (see comments)GI problemsOther reaction(s): Other (see comments), Other (See Comments)Other reaction(s): Other (see comments)GI problems Ranitidine Other (See Comments)Other reaction(s): Dizzy spells, Joint painGI pain, vision problems,Other reaction(s): Dizzy spells, Joint pain, Other (see comments), Other (See Comments)Other reaction(s): Dizzy spells, Joint painGI pain, vision problems, Sulfa Antibioticssulfa eye drops Tuberculin Purified Protein DerivativeAnaphylactic reaction; aplisol type Azithromycin Other (See Comments) and RashOther reaction(s): Gastritis, Other (see comments)Other reaction(s): Other (see comments), Other (See Comments), rashOther reaction(s): Gastritis, Other (see comments)Other reaction(s): Gastritis, Other (see comments)Other reaction(s): Other (see comments), Other (See Comments), rashOther reaction(s): Gastritis, Other (see comments) Duloxetine Palpitations Erythromycin Other (See Comments) and RashOther reaction(s): Other (see comments), Other (See Comments)Other reaction(s): Other (see comments), Other (See Comments)FAMILY HISTORY: Asthma Mother Allergic rhinitis Mother Diabetes Father Heart disease Brother Asthma Maternal Grandmother Allergic rhinitis Maternal Grandmother Sarcoidosis Cousin Sarcoidosis Cousin Crohn's disease Cousin Eczema Son Asthma Son Allergic rhinitis Son Asthma Son Allergic rhinitis Son Eczema Daughter Asthma Daughter Allergic rhinitis Daughter Asthma Grandchildhospitalized 2x in 2023No one else in the family known to have asthma, allergic rhinitis, eczema, drug allergies, food allergies, immunodeficiency, autoimmune disease, cystic fibrosis, cancer, or heart disease.ENVIRONMENTAL/SO CIAL HISTORY:Reviewed today and no significant changes noted.Her [...] and throughout the home. Marjorie Schwartz MD [address] [place] [address], [address], [place], [address], [place] [facility] 11/19/2024 08:40:11 5 text/html ROS as noted in the HPI TELEHEALTH (Video and Audio) The patient received guidance on receiving healthcare through telehealth, including the use of HIPAA privacy -compliant technology for remote communication and its associated privacy risks. The patient was also informed of the limitations of treatment provided through telehealth and that in the event of a lost or failed video connection, the provider may call back or reschedule the visit. Alternatively, the patient may opt for an in-person visit. The patient gave consent for the use of video communication and provided care. The patient understands the visit will be submitted to their insurance and that they are responsible for any copay or deductible charges. A video telemedicine conference was performed via [employer]. Total time spent reviewing records, encounter, coordinating care: 21 minutes Patient Location: Her car (parked, not driving) Provider Location: [facility] Office Dear Dr. Payne,I had the pleasure of seeing Selam Aggarwal [...] tachycardia, but she rarely needs to take it. She also had head/neck LAD with strep infection in October 2024, which was not actually angioedema. I saw Selam for an initial consultation on [...] worse in the evenings. She reports that UC thought she had Strep A and Rx'd [...] be seeing her obesity provider the following day.I then saw her via telemed on 11/19/24, at which time her face was back to normal and she was no longer having swelling or neck pain, s/p dx of strep A and taking antibiotics for this. She had decreased her antihistamines for CIU back down and was doing fine from a CIU perspective. She felt she was having symptoms around flowering plants outside, despite no pollen allergies having been found on prior testing. She is being seen today for unplanned visit. She is accompanied by her today.Her allergies got super super bad when she went down to 2 tabs of Zyrtec per day (from 4) in Jan 2025. She went back up to 4 tabs/day and she felt better. She feels it was bad in January, similar to last year. She was having a lot of congestion and nasal discharge, she also had hoarse voice, chana by 9 pm. Using her nasal spray (ipratropium 0.06%) and taking Zyrtec would improve her symptoms. She will monitor this and may need to up her medications in December through Mar next year. She also had pain in her back when she took a breath and radiating around to her chest. She was treated with bronchitis but she does not feel that she actually had it. She feels ipratropium works amazing, way better than Flonase ever did. She is back to her baseline. When she is due for her medication, she will have some sniffling and voice changes but not as bad as before. She is currently taking Zyrtec QHs only. If she has increased mucus or increased allergy symptoms, she will take it BID PRN. She has had 2 episodes of angioedema, which were mild. She took Children's chewable Benadryl and prednisone x1 dose and it went away. She did not have to go to ER. She always has meds with her in case she needs them as it often is random and when she is in the car. She knows it is just random. She has no other questions/concerns for today's visit. Allergy/Immunology History:Initial visitwith Dr. Schwartz (allergy) was 05/28/24.I reviewed 10 pages of notes/referral from rheum for reported h/o angioedema. ARC:She has had allergies since teenage years, for which she took allergy shots. In Jan 2024, her symptoms worsened. She has nasal congestion, sinus pressure, and irritated eyes. She takes Zyrtec BID, since Jan 2024. She didn t take any Zyrtec for a ~3 days last week, and she had return of her symptoms (chana a lot of nasal/sinus discharge/mucus). She had not taken a daily allergy medication for awhile, and was just taking it PRN (was either Claritin or ChlorTrimiton PRN) until Jan 2024 when her symptoms worsened randomly.Skin Prick Testing (06/11/24): + to D. Pteronyssinus, D. Farinae; all other [...] days only) and Benadryl, and if this doesn t work then she will go to the ER but she has not needed to go to the ER lately since she can manage it at home. She has not had hives in a long time. She has not been taking anything to prevent the hives or swelling. She feels it is completely random and it seems to be occurring less frequently.Labs: 05/28/24:Tryptase<11.0 mcg/L 4.8HISTAMINE RELEASE (CHRONIC URTICARIA)<16 % <16 ?Alpha gal:She reports that a doctor thinks she may have alpha gal. She reports that her swelling started after being at a BBQ and she does think that it caused the start of her swelling the first time. She is not sure how to be tested to this.Lab 4Alpha Galactosidase, S0.074 - 0.457 U/L 0.236Interpretation W monie test for alpha gal was done, so may consider doing correct test if patient wants. She hasGrave s :as an autoimmune condition and possibly others. She sees rheumatology, but no clear diagnoses has been found.She hadasthma:as a teenager. She attributes it to having a dog at that time and her allergies were bad at that time. She denies asthma as an adult.She haseczema:It has been worse lately. She uses hydrocortisone OTC. She has not seen a endoscopic technician in awhile, so she does not have a Rx currently.Hymenoptera all:She reports that with 1 sting from a bee, she was stung on her neck and developed localized swelling, felt she had trouble breathing, and was sick for 1 week afterwards.She haspropranololavailable for PRN tachycardia for Grave s , but she does not typically need it.Shedeniesany food or latex allergies. At her October 2024 visit:LAD: She reports that she did in fact havegroup A strep, so she ended up taking the antibiotics she had been prescribed and is feeling better. Yesterday was the first day without any neck pain. Her glands below her cheeks are slightly swollen still on the left but improving and not painful anymore. She is finishing her antibiotic course today or tomorrow. She is feeling much better now. At her October 2024 visit: She feels every time she goes outside withflowering plantsright near her door, she feels she has more allergy symptoms (nasal congestion, sniffling, itchy eyes, and clearing her throat). Therefore, she has increased her Zyrtec back to 2 tabs BID last night/today due to allergy symptoms. At her October 2024 visit: She is continuing on her currentweight lossmeds, as she now realizes that her facial swelling was not due to this. At her October 2024 visit: She reports that herthyroidmeds will be adjusted due to abnormal labs. ALLERGIES: Bee Venom Anaphylaxis Copper Anaphylaxis Zolpidem Other (See Comments) and Nausea And VomitingOther reaction(s): OTHER, Other (see comments)Passed out & vomited uncontroablyOther reaction(s): Other (see comments), Other (See Comments), vomitingOther reaction(s): OTHER, Other (see comments)Passed out & vomited uncontroablyOther reaction(s): OTHER, Other (see comments)Passed out & vomited uncontroablyOther reaction(s): Other (see comments), Other (See Comments), vomitingOther reaction(s): OTHER, Other (see comments)Passed out & vomited uncontroably Cyclosporine Other (See Comments)Other reaction(s): rodríguez eyes Amlodipine Other (See Comments)Per pt had excessive swelling and got blood clot on legPer pt had excessive swelling and got blood clot on legPer pt had excessive swelling and got blood clot on leg Gabapentin Other (See Comments)Other reaction(s): Other (see comments)Other reaction(s): Other (see comments) Lidocaine Viscous HclOther reaction(s): lung pain Nickel Other (See Comments)Other reaction(s): Other (see comments)Skin IrritationOther reaction(s): Other (see comments), Other (See Comments)Other reaction(s): Other (see comments)Skin IrritationOther reaction(s): Other (see comments)Skin IrritationOther reaction(s): Other (see comments), Other (See Comments)Other reaction(s): Other (see comments)Skin Irritation Pantoprazole Other (See Comments)Other reaction(s): Other (see comments)GI problemsOther reaction(s): Other (see comments), Other (See Comments)Other reaction(s): Other (see comments)GI problemsOther reaction(s): Other (see comments)GI problemsOther reaction(s): Other (see comments), Other (See Comments)Other reaction(s): Other (see comments)GI problems Ranitidine Other (See Comments)Other reaction(s): Dizzy spells, Joint painGI pain, vision problems,Other reaction(s): Dizzy spells, Joint pain, Other (see comments), Other (See Comments)Other reaction(s): Dizzy spells, Joint painGI pain, vision problems, Sulfa Antibioticssulfa eye drops Tuberculin Purified Protein DerivativeAnaphylactic reaction; aplisol type Azithromycin Other (See Comments) and RashOther reaction(s): Gastritis, Other (see comments)Other reaction(s): Other (see comments), Other (See Comments), rashOther reaction(s): Gastritis, Other (see comments)Other reaction(s): Gastritis, Other (see comments)Other reaction(s): Other (see comments), Other (See Comments), rashOther reaction(s): Gastritis, Other (see comments) Duloxetine Palpitations Erythromycin Other (See Comments) and RashOther reaction(s): Other (see comments), Other (See Comments)Other reaction(s): Other (see comments), Other (See Comments)FAMILY HISTORY: Asthma Mother Allergic rhinitis Mother Diabetes Father Heart disease Brother Asthma Maternal Grandmother Allergic rhinitis Maternal Grandmother Sarcoidosis Cousin Sarcoidosis Cousin Crohn's disease Cousin Eczema Son Asthma Son Allergic rhinitis Son Asthma Son Allergic rhinitis Son Eczema Daughter Asthma Daughter Allergic rhinitis Daughter Asthma Grandchildhospitalized 2x in 2023No one else in the family known to have asthma, allergic rhinitis, eczema, drug allergies, food allergies, immunodeficiency, autoimmune disease, cystic fibrosis, cancer, or heart disease.ENVIRONMENTAL/SO CIAL HISTORY:Reviewed today and no significant changes noted.Her [...] and throughout the home. Marjorie Schwartz MD [address] [place] [address], [address], [place], [address], [place] [facility] [place] 03/16/2025 09:34:01 OBGyn Episode No OBEpisode recorded.
== END 2025-04-20 14:47 | disposition home or self-care (01) ==
LOC: HO.PMC 14:15
PROVIDERS: PCP Internal Medicine; Visit Provider Nurse Practitioner Family
DX: M47.816 Spondylosis without myelopathy or radiculopathy, lumbar region (principal); M53.3 Sacrococcygeal disorders, not elsewhere classified; M54.50 Low back pain, unspecified; G89.29 Other chronic pain
CPT/HCPCS: 99213; G2211